=== PATIENT | male | born 1950 | race Caucasian/White ===

== ENCOUNTER 2022-10-31 05:44 | Inpatient (IN) | payer MEDICARE, OTHER, SELFPAY ==
[2022-10-31] VITALS (11 sets, daily range): BP systolic 138–173; BP diastolic 83–105; PULSE 87–108; RESP 18–24; TEMP 36.6–37.2; O2SAT 76–98; BMI 21.0; BMI 20.5
--- NOTE | 2022-10-31 06:15 | RAD_ITS ---
INDICATION: Dyspnea EXAMINATION/TECHNIQUE: X-RAY - XR Chest 2 Views COMPARISON: No comparison imaging received FINDINGS: LINES/DEVICES: None. LUNGS: Patient slightly rotated to the right. Hyperexpanded lungs. Right greater than left perihilar and peribronchial hazy opacities. No sizable pleural effusion. No pneumothorax detected. MEDIASTINUM AND CARDIOVASCULAR STRUCTURES: Heart size within normal limits. Mediastinal contours unremarkable. BONES AND SOFT TISSUES: No acute findings. RAD/Chest PA and Lateral IMPRESSION: COPD with bilateral perihilar and peribronchial infiltrate. Electronically Signed: Nate Cosme MD at 7:30 EDT Reading Location ID and State: [id number] / [place]
--- NOTE | 2022-10-31 06:16 | EKG12_ITS ---
Test Reason : SOB Blood Pressure : / mmHG Vent. Rate : 102 BPM Atrial Rate : 102 BPM P-R Int : 118 ms QRS Dur : 084 ms QT Int : 364 ms P-R-T Axes : 072 086 066 degrees QTc Int : 474 ms Sinus tachycardia Otherwise normal ECG Confirmed by MARTA CAN, LINDA ([id number]), editor news ANGELA NUNO ([id number]) on 11/03/2022 11:39:27 AM Referred By: Confirmed By:ANGELIQUE LOZANO MD
[2022-10-31] MEDS: Ipratropium/Albuterol Sulfate 3 ML AMPUL.NEB INHALATION (06:26)
--- NOTE | 2022-10-31 06:26 | ED.VIS.DYS ---
HPI History of Present Illness Chief Complaint: Shortness of Breath Informant: patient Onset/Context/Timing Onset: Month(s) (1) Context: gradual Timing: Continuous Quality: Positive for Dyspnea on exertion Worsened by: Exertion Relieved by: Rest Associated Symptoms cough and white sputum; Negative for rhinorrhea, post nasal drip, ear pain, fever, sore throat, chills, sweats, yellow sputum or green sputum Narrative Narrative: Patient presents with shortness of breath that has been getting worse over the past month. Patient states his breathing is worse with any exertion. Patient states his breathing got better with the DuoNeb EMS administered. Patient admits to a cough with some white sputum. Patient denies any fevers or chills. Patient denies any chest pain. Patient denies any sore throat or rhinorrhea. Patient denies any nausea or vomiting. Patient states he quit smoking 1 week ago. Patient denies any PE risk factors. PE Risk Factors: Negative for Cancer, OCP + Smoking + > 35, Prior DVT or PE, Recent immobilization, Recent surgery or Recent travel [facility] Medical History GERD (gastroesophageal reflux disease) Hypertension Home Medications pantoprazole 20 mg tablet,delayed release 20 mg PO DAILY 10/31/22 [History Last Taken Unknown] Allergy/AdvReac Type Severity Reaction Status Date / Time No Known Allergies Allergy Verified 10/31/22 07:42 Surgical History History of tonsillectomy Social History Smoking Status: Former smoker ROS ROS ED Constitutional Constitutional ED: Denies chills or fever(s) Eyes Eyes: Denies blurry vision or change in vision ENT ENT ED: Denies rhinorrhea or sore throat Cardiovascular Cardiovascular: Denies chest pain or palpitations Respiratory/Chest Respiratory/Chest: Reports cough and dyspnea Gastrointestinal Gastrointestinal: Denies nausea or vomiting Genitourinary Genitourinary ED: Denies dysuria or hematuria Musculoskeletal Musculoskeletal: Denies back pain or neck pain Integumentary Denies abscess or rash Neurologic Neurologic: Denies headache(s) or weakness Allergic/Immunologic Allergic/Immunologic ED: Denies mouth swelling or urticaria EXAM Physical Exam Const Vital Signs: 10/31/22 05:46 10/31/22 05:49 10/31/22 05:49 Temperature 98.4 F Temperature Source Oral Pulse Rate 108 H Respiratory Rate 22 H Respiratory Effort Short of Breath Respiratory Depth Normal Respiratory Pattern Tachypnea Blood Pressure 173/105 H Blood Pressure Mean 127 Pulse Ox 76 84 Oxygen Delivery Method Room Air Nasal Cannula Nasal Cannula Oxygen Flow Rate (L/min) 4 5 10/31/22 06:27 10/31/22 07:34 Temperature Temperature Source Pulse Rate 99 98 Respiratory Rate 18 20 H Respiratory Effort Respiratory Depth Respiratory Pattern Normal Blood Pressure 157/100 H Blood Pressure Mean 119 Pulse Ox 93 Oxygen Delivery Method High Flow Oxygen Flow Rate (L/min) 6 Positive well nourished and well developed General Appearance ED: well developed HEENT Reports moist mucous membranes Neck supple and no JVD Resp normal respiratory effort Auscultation: diminished lung sounds diffuse Cardio regular rate and regular rhythm GI normal to inspection, nondistended, normoactive bowel sounds and non-tender Palpation: soft Extremity normal to inspection General Extremety ED: Negative for edema or tenderness General Extremity: Negative for edema Neuro oriented x3, CN's II-XII intact bilaterally and no sensory deficits noted Sensorium / Orientation: alert Motor Exam: strength 5/5 throughout Psych mental status grossly normal Skin no rashes or lesions noted MDM MDM MDM Narrative Medical decision making narrative: Differential diagnosis includes pneumonia, COPD exacerbation, pleural effusion, COVID-19 infection, influenza infection, viral infection, and congestive heart failure. EKG will be obtained to assess for cardiac dysrhythmia and cardiac ischemia. Chest x-ray will be obtained to assess for pneumonia and pneumothorax. CBC will be obtained to assess for leukocytosis and anemia. Basic metabolic profile will be obtained to assess for electrolyte abnormality and renal function. High-sensitivity troponin will be obtained to assess for cardiac ischemia. BNP will be obtained to assess for congestive heart failure. COVID-19 rapid antigen will be obtained to assess for COVID-19 infection. Influenza A and influenza B antigens will be obtained to assess for influenza infection. Lab Data Attestation: I reviewed the patient's lab results. Lab results narrative: CBC was reviewed and shows a leukocytosis of 16.3. Basic metabolic profile was reviewed and shows a mild hypokalemia 3.1. High-sensitivity troponin was reviewed and was normal at 12. BNP was reviewed and was normal at 70.5. COVID-19 rapid antigen was reviewed and was negative. Influenza A and influenza B antigens were reviewed and were negative. Labs: Laboratory Results - last 24 hr 10/31/22 06:22 WBC 16.3 H RBC 4.80 Hgb 14.9 Hct 43.9 MCV 91.5 MCH 31.0 MCHC 33.9 RDW Std Deviation 47.2 H RDW Coeff of Sonya 13.9 Plt Count 350 MPV 8.2 Immature Gran % (Auto) 0.700 Neut % (Auto) 67.5 Lymph % (Auto) 18.3 L [place] % (Auto) 12.8 H Eos % (Auto) 0.2 Baso % (Auto) 0.5 Absolute Neuts (auto) 11.0 H Absolute Lymphs (auto) 2.97 Nucleated RBC % 0 Diff Path Review May foll Sodium 139 Potassium 3.1 L Chloride 108 H Carbon Dioxide 25.0 Anion Gap 6 BUN 18 Creatinine 0.77 Estim Creat Clear Calc 71.30 Est GFR (MDRD) Af Amer 129 Est GFR (MDRD) Non-Af 106 BUN/Creatinine Ratio 23.5 H Glucose 123 H Calcium 9.4 Troponin I High Sens 12 B-Natriuretic Peptide 70.5 Radiography Diagnostic Testing: Clinical Impression(s) from Imaging Studies Chest X-Ray 10/31/22 06:15 IMPRESSION: COPD with bilateral perihilar and peribronchial infiltrate. Electronically Signed: Nate Cosme MD at 7:30 EDT , PA and lateral chest x-ray was obtained. There are 2 views. On my independent interpretation, there are bilateral perihilar and peribronchial infiltrates, worse on the right. There is no cardiomegaly noted. Bony thorax is normal. There are no pleural effusions noted. Radiologist also interpreted the x-rays and agrees. EKG Initial EKG: Attestation: I personally reviewed and interpreted this EKG as follows: Interpretation: No Acute Injury Pattern and Sinus Tachycardia (102) Comments: EKG was obtained. On my independent interpretation, it showed a sinus tachycardia with a rate of 102. AK interval, QRS interval, and QTc intervals were all normal. [place] was normal. There are no acute ST or T wave changes. Prior EKG tracings: not available for review Prior: No Prior Treatment and Re-Evaluation :: Patient was given a DuoNeb aerosol here. Patient was advised of his findings. Patient is hypoxic on room air. Patient was started on Rocephin and Zithromax. Patient was advised of the need for admission since he is hypoxic. Patient understands and is agreeable with the plan. Case will be discussed with the hospitalist for admission. Discharge Plan Triage Chief Complaint: Shortness of Breath ED Provider: Jatinder Antunez Dx/Rx/DC Orders Clinical Impression: Hypoxia, Pneumonia Prescriptions: No Action pantoprazole 20 mg tablet,delayed release (DR/EC) 20 mg PO DAILY Patient Comments: Take 1 (one) tablet (20 mg total) by mouth daily. Primary Care Provider: Care Physician,No Primary Referrals: Care Physician,No Primary [Primary Care Provider] - Disposition Disposition: Acute Care Hospital [facility]
[2022-10-31 06:32] LABS: Absolute Lymphocyte Count 2.97 X10^3/uL (0.83-4.51); Basophil# 0.08 X10^3/uL; Basophil% 0.5 % (0-1); Eosinophil# 0.03 X10^3/uL; Eosinophils% 0.2 % (0-5); Hematocrit 43.9 % (40-54); Hemoglobin 14.9 g/dL (13.0-16.5); Lymphocyte # 2.97 X10^3/ul (0.83-4.51); Lymphocyte % 18.3 % (19-41); Mean Corp Hgb Conc 33.9 g/dL (32-36); Mean Corpuscular Volume 91.5 fL (80-94); Mean Platelet Vol. 8.2 fl (6.2-12.0); Monocyte# 2.09 X10^3/uL; Monocyte% 12.8 % (0-10); NRBC Flagged by Analyzer 0 % (0-5); Neutrophil # 10.98 X10^3/uL (2.7-7.7); Neutrophil % 67.5 % (47-70); POSITIVE DIFFERENTIAL YES; Platelet Count 350 K/mm3 (150-450); RBC Distribution Width CV 13.9 % (11.6-14.6); RBC Distribution Width SD 47.2 fl (35.1-43.9); White Blood Count 16.3 K/mm3 (4.4-11.0)
[2022-10-31 06:43] LABS: Differential Indicated SCAN CRITERIA MET
[2022-10-31 06:49] LABS: Anion Gap 6 (5-15); BUN 18 mg/dL (7-18); BUN/Creat Ratio 23.5 RATIO (10-20); Calcium,Total 9.4 mg/dL (8.5-10.1); Chloride 108 mmol/L (98-107); Creatinine, Serum 0.77 mg/dL (0.70-1.30); EST Glomerular Filtration Rate 106 mL/min (>60); Est Glom Filt Rate - Afr Amer 129 mL/min (>60); Glucose 123 mg/dL (74-106); Potassium 3.1 mmol/L (3.5-5.1); Sodium Level 139 mmol/L (136-145); Troponin-I HS 12 pg/mL (3.0-78.0)
[2022-10-31 07:31] LABS: BNP,B-Type NATRIURETIC PEPTIDE 70.5 pg/mL (0-100)
--- NOTE | 2022-10-31 08:22 | NURSING ---
323 TERELETSKY PNEUMONIA, HYPOXIA, COPD
--- NOTE | 2022-10-31 09:49 | HP.PCM.HOS_ITS ---
HPI - General General Date of Admission: 10/31/22 Date of Service: 10/31/22 Chief Complaint: Shortness of breath HPI Narrative SADIE EATON, is a 72 M who presents to the emergency room at [facility] with a chief complaint of increasing shortness of breath over the last several weeks. Patient stated that it had increased this morning, DuoNeb was given by squad and he was brought to the emergency room for evaluation. Patient relates to an outpatient work-up for his shortness of breath by his PCP, he was placed on inhalers and an aerosol machine, patient states that a CAT scan was obtained but he does not know the results of the CAT scan. Patient stopped smoking a week ago, he has a 50+ year history of smoking 1 pack a day. Patient admits to a cough with some white sputum production, he denies any fever or chills. He denies any chest pain. Work-up in the emergency room included labs which showed a white blood cell count of 16.3, troponin was unremarkable, beta nitric peptide was 70.5, potassium was 3.1. Chest x-ray showed COPD with bilateral perihilar and peribronchial infiltrates. On examination, patient exhibits inspiratory wheezing bilaterally, he is currently on 10 L of oxygen. Patient will be admitted to [place] [address] for exacerbation of COPD and community-acquired pneumonia, he was given IV antibiotics in the emergency room, he will be maintained on aerosol treatments, he will see pulmonary medicine in consultation for ongoing care after he is discharged from the hospital. I will obtain a D-dimer. I will attempt to get results of his outpatient chest CT, I called [facility] and they do not have record of him having a CT there-he told me that this work was performed. [facility] Medical History GERD (gastroesophageal reflux disease) Hypertension Home Medications amlodipine 10 mg tablet 10 mg PO DAILY high blood pressure 10/31/22 [History Last Taken 10/31/22] pantoprazole 20 mg tablet,delayed release 20 mg PO DAILY 10/31/22 [History Last Taken Unknown] prednisone 20 mg tablet 20 mg PO DAILY breathing 10/31/22 [History Last Taken 10/30/22] Allergy/AdvReac Type Severity Reaction Status Date / Time No Known Allergies Allergy Verified 10/31/22 07:42 Surgical History History of tonsillectomy Social History Smoking Status: Former smoker ROS Constitutional Constitutional: Reports fatigue and weakness; Denies anorexia, change in weight, chills, fever(s) or night sweats Eyes Eyes: Denies blurry vision, change in vision, discharge from eye(s) or eye pain Cardiovascular Cardiovascular: Denies chest pain, claudication, edema or palpitations Respiratory/Chest Respiratory/Chest: Reports dyspnea, shortness of breath at rest, shortness of breath with exertion and wheezing; Denies cough or hemoptysis Gastrointestinal Gastrointestinal: Denies abdominal pain, coffee ground emesis, constipation, diarrhea, dyspepsia, hematemesis, hematochezia, melena, nausea or vomiting Genitourinary Genitourinary: Denies dysuria, hematuria, nocturia, urinary frequency, urinary hesitancy, urinary incontinence or urinary urgency Musculoskeletal Musculoskeletal: Denies back pain, joint pain, joint stiffness, joint swelling, myalgias or neck pain Neurologic Neurologic: Denies abnormal gait, abnormal speech, dizziness, focal weakness, headache(s), loss of vision, numbness, other visual disturbances, paresthesias, syncope or tingling Psychiatric Psychiatric: Denies anxiety, cognitive impairment, depression, irritability, mood swings or suicidal ideation Endocrine Endocrinology: Denies change in body appearance, cold intolerance, excessive sweating, heat intolerance, polydipsia or polyuria Hematologic/Lymphatic Hematologic/Lymphatic: Denies none, anemia, easy bleeding, easy bruising or lymphadenopathy Allergic/Immunologic Allergic/Immunologic: Denies rhinitis, urticaria, eczemia or asthma Vital Signs Vital Signs Vital Signs: 10/31/22 05:46 10/31/22 05:49 10/31/22 05:49 Temperature 98.4 F Temperature Source Oral Pulse Rate 108 H Respiratory Rate 22 H Respiratory Effort Short of Breath Respiratory Depth Normal Respiratory Pattern Tachypnea Blood Pressure 173/105 H Blood Pressure Mean 127 Blood Pressure Source Blood Pressure Position Blood Pressure Location Pulse Ox 76 84 Oxygen Delivery Method Room Air Nasal Cannula Nasal Cannula Oxygen Flow Rate (L/min) 4 5 10/31/22 06:27 10/31/22 07:34 10/31/22 08:19 Temperature 98 F Temperature Source Temporal Pulse Rate 99 98 100 Respiratory Rate 18 20 H 20 H Respiratory Effort Respiratory Depth Respiratory Pattern Normal Blood Pressure 157/100 H 156/96 H Blood Pressure Mean 119 116 Blood Pressure Source Blood Pressure Position Blood Pressure Location Pulse Ox 93 93 Oxygen Delivery Method High Flow High Flow Oxygen Flow Rate (L/min) 6 8 10/31/22 09:29 Temperature 98.1 F Temperature Source Oral Pulse Rate 100 Respiratory Rate 18 Respiratory Effort Respiratory Depth Respiratory Pattern Blood Pressure 138/83 H Blood Pressure Mean 101 Blood Pressure Source Monitor Blood Pressure Position Semi-Fowlers Blood Pressure Location Right Arm Pulse Ox 93 Oxygen Delivery Method High Flow Oxygen Flow Rate (L/min) 10 Weight Weight: 72.4 kg Body Mass Index (BMI) 20.5 Physical Exam Const alert, oriented x3 and no apparent distress General Appearance: cooperative, well kempt and well developed Orientation / Consciousness: awake, oriented to person, oriented to place and oriented to time HEENT normocephalic and moist oral mucous membranes Eyes PERRL, EOMs intact bilaterally and conjunctivae normal Neck supple, no JVD, thyroid normal and no carotid bruits General: trachea midline Resp normal respiratory effort, no retractions, no use of accessory muscles and clear to auscultation bilaterally Auscultation: Negative for rales, rhonchi or wheezes Cardio regular rate, regular rhythm, S1 normal heart sound, S2 normal heart sound, no murmurs, no rub and no gallops GI normal to inspection, nondistended, normoactive bowel sounds, soft to palpation, non-tender and non-distended Extremity no clubbing, cyanosis or edema Skin no rashes or lesions noted General Skin Exam: no breakdown Neuro oriented x3, CN's II-XII intact bilaterally, moves all extremities, no focal motor deficits and no sensory deficits noted Sensorium / Orientation: awake, alert, oriented to person, oriented to place and oriented to time Speech: speech normal Psych affect normal Results Lab / Micro Data 10/31/22 06:22 10/31/22 06:22 Labs: Laboratory Results - last 24 hr 10/31/22 06:22: WBC 16.3 H, RBC 4.80, Hgb 14.9, Hct 43.9, MCV 91.5, MCH 31.0, MCHC 33.9, RDW Std Deviation 47.2 H, RDW Coeff of Sonya 13.9, Plt Count 350, MPV 8.2, Immature Gran % (Auto) 0.700, Neut % (Auto) 67.5, Lymph % (Auto) 18.3 L, [place] % (Auto) 12.8 H, Eos % (Auto) 0.2, Baso % (Auto) 0.5, Absolute Neuts (auto) 11.0 H, Absolute Lymphs (auto) 2.97, Nucleated RBC % 0, Diff Path Review August, Sodium 139, Potassium 3.1 L, Chloride 108 H, Carbon Dioxide 25.0, Anion Gap 6, BUN 18, Creatinine 0.77, Estim Creat Clear Calc 71.30, Est GFR (MDRD) Af Amer 129, Est GFR (MDRD) Non-Af 106, BUN/Creatinine Ratio 23.5 H, Glucose 123 H, Calcium 9.4, Troponin I High Sens 12, B-Natriuretic Peptide 70.5 Micro: Microbiology 10/31/22 06:25 Nasal Secretion SARS-CoV-2 & FLU Antigen (Rapid) - Final Radiology Impression Chest X-Ray 10/31/22 06:15 IMPRESSION: COPD with bilateral perihilar and peribronchial infiltrate. Electronically Signed: Nate Cosme MD at 7:30 EDT , Assessment & Plan Assessment/Plan (1) Pneumonia: PLAN: Plan 1. Exacerbation of COPD-patient will be admitted to [place] [address], he will be given IV corticosteroids and aggressive aerosol treatments, he will be seen in consultation by pulmonary medicine. I have elected to obtain a D-dimer on the patient, I will attempt to get his chest CAT scan results which she says he had recently, not sure what hospital it was performed at. #2 community-acquired pneumonia-it is possible patient has a community-acquired pneumonia, he will be maintained on Rocephin and Zithromax, sputum culture will be obtained, urine antigens for Legionella and strep will be obtained #3 hypoxia-at rest, patient has no signs of respiratory distress, he is on high flow oxygen at this time however, we will try to wean his oxygen down if possible. #4 hypertension-patient is on amlodipine #5 GERD-patient takes Protonix Total clinical time spent by myself addressing the patient's medical issues, reviewing all of his data, and collaborating with patient's care team: 75 minutes Charges/Coding Visit Charges Inpatient E&M: 39289 Init Hosp L3
[2022-10-31 10:43] LABS: D-Dimer Quantitative (DVT/PE) 0.53 FEU/ug/m (0.27-0.49)
[2022-10-31] MEDS: Potassium Chloride Oral Tablet 20 MEQ 40 MEQ PO (11:00)
[2022-10-31] MEDS: 0.9% Saline Lock 10 ML Syringe IV ×3 (11:10→22:14)
--- NOTE | 2022-10-31 11:45 | NURSING ---
This RN gave pt sputum cup for pt and instructions given for sputum sample and to call the nurse when sputum sample is provided by pt.
[2022-10-31] MEDS: Ipratropium 0.5 MG/2.5 ML SOLUTION INHALATION ×2 (13:36→19:30)
--- NOTE | 2022-10-31 14:07 | CPS ---
Pt's SpO2 was 98% when RT arrived in room so decreased O2 from 10lpm to 8lpm. Sat remained in the 90's until pt sat on the side of the bed to use urinal and he desated quickly to low 80's so O2 was returned to 10lpm and SpO2 increased to low 90's.Informed perishable fruit inspector.
[2022-10-31] MEDS: Methylprednisolone Sod Succ 40 MG/ML VIAL IV ×2 (14:55→22:12)
[2022-10-31] MEDS: Heparin Injection (Vial) 5,000 UNIT/ML VIAL 5000 UNIT SC (22:15)
[2022-11-01] VITALS (7 sets, daily range): BP systolic 117–136; BP diastolic 74–90; PULSE 74–100; RESP 16–20; TEMP 36.8–37.2; O2SAT 93–96
[2022-11-01] MEDS: Methylprednisolone Sod Succ 40 MG/ML VIAL IV ×3 (05:55→22:34)
[2022-11-01] MEDS: 0.9% Saline Lock 10 ML Syringe IV ×2 (05:55→22:35)
[2022-11-01 06:43] LABS: Absolute Lymphocyte Count 1.31 X10^3/uL (0.83-4.51); Basophil# 0.02 X10^3/uL; Basophil% 0.2 % (0-1); Hematocrit 44.3 % (40-54); Hemoglobin 14.9 g/dL (13.0-16.5); Lymphocyte # 1.31 X10^3/ul (0.83-4.51); Lymphocyte % 10.2 % (19-41); Mean Corp Hgb Conc 33.6 g/dL (32-36); Mean Corpuscular Volume 92.1 fL (80-94); Mean Platelet Vol. 8.9 fl (6.2-12.0); Monocyte# 0.44 X10^3/uL; Monocyte% 3.4 % (0-10); NRBC Flagged by Analyzer 0 % (0-5); Neutrophil # 11.04 X10^3/uL (2.7-7.7); Neutrophil % 85.5 % (47-70); Platelet Count 381 K/mm3 (150-450); RBC Distribution Width CV 13.9 % (11.6-14.6); RBC Distribution Width SD 47.1 fl (35.1-43.9); Red Blood Count 4.81 M/mm3 (4.6-6.2); White Blood Count 12.9 K/mm3 (4.4-11.0)
[2022-11-01] MEDS: Ipratropium 0.5 MG/2.5 ML SOLUTION INHALATION ×3 (06:48→19:38)
[2022-11-01 07:08] LABS: Anion Gap 7 (5-15); BUN 17 mg/dL (7-18); BUN/Creat Ratio 20.9 RATIO (10-20); Calcium,Total 8.7 mg/dL (8.5-10.1); Chloride 108 mmol/L (98-107); Creatinine, Serum 0.81 mg/dL (0.70-1.30); EST Glomerular Filtration Rate 100 mL/min (>60); Est Glom Filt Rate - Afr Amer 120 mL/min (>60); Estimated Creatinine Clearance 85.66 ml/min; Glucose 134 mg/dL (74-106); Potassium 3.8 mmol/L (3.5-5.1); Sodium Level 138 mmol/L (136-145)
[2022-11-01] MEDS: Ceftriaxone 1 GM/50 ML BAG IV (09:40)
[2022-11-01] MEDS: Heparin Injection (Vial) 5,000 UNIT/ML VIAL 5000 UNIT SC (09:41)
[2022-11-01] MEDS: amLODIPine 10 MG Tablet PO (09:41)
[2022-11-01] MEDS: Pantoprazole Sodium 20 MG Tablet PO (09:41)
[2022-11-01 10:12] LABS: Pathologist Review Reviewed
--- NOTE | 2022-11-01 10:35 | EX.PCM.CONCC ---
Assessment & Plan Assessment/Plan (1) Mass of right lung: PLAN: I will review the images from [facility] chest CT scan when they are available in our system Bronchoscopy is tentatively scheduled for 1 PM on October 04 for biopsy of his right paratracheal mass and likely endobronchial lesion. This is highly likely to be a neoplasm, patient is aware. Further testing including depending on results. Pre- bronchoscopy labs ordered including PT/INR PTT CMP and ABG on O2. Platelets are normal. (2) Postobstructive pneumonia: PLAN: Secondary to #1. Agree with your care, he is clinically improving. (3) Hypertension: PLAN: Maintain BP less than 160 systolic (4) GERD (gastroesophageal reflux disease): PLAN: Well-controlled on pantoprazole. (5) COPD exacerbation: PLAN: No prior diagnosis, no prior PFT dismantler or inhalers until 1 month ago when he presented with cough. -Continue current treatment of COPD, changed to p.o. prednisone, with slow taper over 1 to 2 weeks. Add LAMA/LABA inhalers prior to discharge. - He will eventually need outpatient PFTs, please order these at discharge, 6 weeks after this exacerbation. However, diagnosis and management of his lung cancer takes front seat at this time. - Fine-tune inhalers dependent on results and clinical response. - The patient is committed to complete smoking cessation, he was advised today on individual message to quit, continue to provide nicotine replacement therapy since that seems to be helpful and effective for this patient. - Outpatient pulmonary follow-up in 7 to 8 weeks PLAN: Plan As above, thank you for consulting [facility] under pleasant patient. Jayro Brown MD [facility] HPI Consult Data Date of Consult: 11/01/22 HPI Narrative Reason for Consultation: COPD exacerbation, new diagnosis, CAP. HPI Narrative: SADIE EATON, is a 72 M former 07-unta-tign smoker and history of hypertension and GERD with no known COPD history, who was admitted to the hospital with hypoxic respiratory failure, COPD exacerbation, and right lung community-acquired pneumonia after a month of Minimally productive cough. Jonna was well until about a month ago, with his baseline exercise tolerance of being able to walk uphill without dyspnea, no significant cough, no chest pain upper airway symptoms allergies allergic rhinitis or wheezing. He denies leg edema fevers chills sweats or sick contacts. He stated he was feeling good until the next morning woke up coughing and more short of breath. He stated he saw several providers as an outpatient including in the [facility] system at [place], and had 2 courses of antibiotics he did not recall the names of, was not sure whether he was taking steroids, was given inhalers that did not help. He never had purulent sputum or hemoptysis, pleurisy, chest pain, chest pressure, upper airway symptoms, leg edema, no fevers chills or sweats. He did have a minimally productive cough with whitish sputum. He did admit to occasionally wheezing, but was not sure what that was. After worsening cough and dyspnea he came to the emergency room he is found to have hypoxic respiratory failure and right lung pneumonia. White count is 16,000. His home health records indicate prednisone 20 mg daily, but he did not recall being on steroids. He was generally not able to name medications or previous medical interventions. Since admission, he feels better on antibiotics steroids and nebulized bronchodilators. He is now able to walk to the bathroom with oxygen and back without much difficulty, he could not do that yesterday. His cough has decreased, sputum is minimal. And again denied hemoptysis, upper airway symptoms, sore throat or chest pain. His past pulmonary history is remarkable only for pneumonia at age 12, [id number] smoking history quit 3 weeks ago with a nicotine patch, had tried several times to quit in the past never more than 2 days at a time. He has now resolved to Quit completely going forward. He has never used oxygen. There is no history of chest trauma, rib fractures, tuberculosis exposure, surgery to the chest or airway except for tonsillectomy during childhood. No history of pneumothorax, DVT, pulmonary embolism, sleep disorder, allergic rhinitis. He did however state that the spring pollen this year was worse for him but did not take any jeiw-wzg-aagpcml allergy pills. He denies a recent fall. He is never seen a dismantler, nor has he had pulmonary function test. He does not usually have springtime respiratory symptoms. No nasal or ear problems or surgery. Past medical history: Hypertension controlled on amlodipine for years, acid reflux with patient reported gastritis by a [place] health advocate, completely resolved with daily pantoprazole. Allergies none known Family and social history no history of COPD, he is accompanied by a friend. No alcohol use, former smoker as above. He Is a lifetime farmer diversified crops, currently working on his own farm. Review of systems: No neurologic symptoms, headache, thrush, adenopathy, cardiac problems, peripheral vascular disease, thromboembolic disease. His GERD is controlled completely on daily pantoprazole. No diabetes, hypothyroidism, renal disease, problems, leg edema, or acute musculoskeletal problems. No psychiatric history. [facility] Medical History (Updated 11/01/22 @ 11:[address] Jayro Brown MD) COPD exacerbation Former smoker GERD (gastroesophageal reflux disease) Hypertension Mass of right lung Postobstructive pneumonia Home Medications amlodipine 10 mg tablet 10 mg PO DAILY high blood pressure 10/31/22 [History Last Taken 10/31/22] pantoprazole 20 mg tablet,delayed release 20 mg PO DAILY 10/31/22 [History Last Taken Unknown] prednisone 20 mg tablet 20 mg PO DAILY breathing 10/31/22 [History Last Taken 10/30/22] Allergy/AdvReac Type Severity Reaction Status Date / Time No Known Allergies Allergy Verified 10/31/22 07:42 Surgical History History of tonsillectomy Social History Smoking Status: Former smoker Physical Exam Narrative Well-developed slender gentleman with BMI of 20.5 in no respiratory distress. He did not cough during today's visit. I did not observe him ambulating. HEENT: Extraoculars are intact pupils are equal anicteric conjunctiva noninjected. Mouth has no thrush. Neck is supple with no JVD thyromegaly mass or adenopathy. Chest is diminished bilaterally with good air movement on the left and diminished air movement on the right. No rhonchi, no wheezes or crackles. Heart: Normal S1-S2 with no murmurs rubs or gallops Abdomen is soft, nontender, no organomegaly or mass. Extremities appear cold, no cyanosis or edema. Neurologic exam is nonfocal grossly, limited exam with no gait tested. He is alert and oriented x3, good historian. Skin is warm and dry. Medical Records Data Attestation: I reviewed the patient's medical records Medical records narrative: [facility] records reviewed, CT scan from outside hospital reportedly shows a mass in the right paratracheal area, they are in the process of pushing the images to our system to make the images available here. Lab / Micro Data Attestation: I reviewed the patient's lab results. 11/01/22 05:10 11/01/22 05:10 Labs: Laboratory Results - last 24 hr 10/31/22 06:22: Diff Path Review Reviewed 10/31/22 10:18: D-Dimer Quant (PE/DVT) 0.53 H* 11/01/22 05:10: WBC 12.9 H, RBC 4.81, Hgb 14.9, Hct 44.3, MCV 92.1, MCH 31.0, MCHC 33.6, RDW Std Deviation 47.1 H, RDW Coeff of Sonya 13.9, Plt Count 381, MPV 8.9, Immature Gran % (Auto) 0.700, Neut % (Auto) 85.5 H, Lymph % (Auto) 10.2 L, O[place]ley % (Auto) 3.4, Eos % (Auto) 0.0, Baso % (Auto) 0.2, Absolute Neuts (auto) 11.0 H, Absolute Lymphs (auto) 1.31, Nucleated RBC % 0, Sodium 138, Potassium 3.8, Chloride 108 H, Carbon Dioxide 23.0, Anion Gap 7, BUN 17, Creatinine 0.81, Estim Creat Clear Calc 85.66, Est GFR (MDRD) Af Amer 120, Est GFR (MDRD) Non-Af 100, BUN/Creatinine Ratio 20.9 H, Glucose 134 H, Calcium 8.7 Micro: Microbiology 10/31/22 14:45 Urine, Random Legionella Antigen - Final 10/31/22 14:45 Urine, Random Streptococcus pneumoniae Antigen (M - Final 10/31/22 06:25 Nasal Secretion SARS-CoV-2 & FLU Antigen (Rapid) - Final Charges/Coding Visit Charges Inpatient E&M: 06867 Init Hosp L3
[2022-11-01 12:53] LABS: Allen Test Positive; Base Excess 0 mmol/L (-2 to +2); Bicarbonate 23.7 mmol/L (22-26); Blood Gas Specimen Type ART; O2 Delivery Device Cannula; PO2 50 mmHG (75-100); SITE R Radial; SO2 88 % (95-99); Total Carbon Dioxide 25 mmol/L; pCO2 32.2 mmHg (35-45); pH 7.48 (7.35-7.45)
--- NOTE | 2022-11-01 13:34 | PCM.PN.HOSP ---
Reason for Visit Reason for Visit: Shortness of breath Subjective Subjective Patient is a 72-year-old male who presented to the emergency department at [facility] on 10/31/2022 with a chief complaint of shortness of breath that had been worsening over the last several weeks. He had worsening respiratory status on the morning of admission and the squad was called. DuoNeb was given by EMS and he was brought to the emergency department for further evaluation. He indicated on presentation that he had a recent outpatient work-up for his shortness of breath which included being placed on inhalers and a nebulizer machine and a CT of his chest was performed recently but he did not know the results of that yet. The patient stopped smoking about 1 week ago but does report a 50+ pack year history. He denies any significant coughing or sputum production and denied fever and chills on presentation. Patient was hypoxic upon presentation requiring 10 L of nasal cannula heated high flow on presentation and he had a leukocytosis with a white count of 16.3. Troponin was performed and found to be unremarkable. A beta natruretic peptide was found to be normal at 70.5. His potassium was slightly low at 3.1. Chest x-ray showed COPD with bilateral perihilar and peribronchial infiltrates. His oxygen has been able to be weaned today and he is currently on 7 L at rest he does get worsening hypoxia with exertion. I was called by his primary care physician Dr. Boss and she reported that the results of the CAT scan showed a mass in his chest. She was trying to get a hold of him to get an appointment for further work-up and found that he was in the hospital. Patient states he is feeling better today however still short of breath especially with exertion. We did discuss the findings on the CAT scan and with the location that they have been found anatomically he will need a bronchoscopy. Case was discussed with pulmonary medicine and plan is for bronchoscopy on 11/03/2022. Patient is amenable to this. Objective Data Objective Data Vital Signs: Vital Signs Temp Pulse Resp BP Pulse Ox O2 Del Method O2 Flow Rate 98.4 F 100 18 134/90 H 95 High Flow 7 11/01/22 10:06 11/01/22 12:40 11/01/22 12:40 11/01/22 10:11/01/22 10:06 11/01/22 10:11/01/22 10:06 Oxygen Flow Rate (L/min) 7 Oxygen Delivery Method High Flow Weight: 72.4 kg Body Mass Index (BMI) 20.5 Intake & Output: Intake and Output for Last 24 Hours 10/30/22 10/31/22 11/01/22 23:59 23:59 23:59 Intake Total 856.5 / 856.5 305 / 305 Output Total 350 / 500 600 / 600 Balance 506.5 / 356.5 -295 / -295 Lab / Micro Data 11/01/22 05:10 11/01/22 05:10 Labs: Laboratory Results - last 24 hr 10/31/22 06:22: Diff Path Review Reviewed 11/01/22 05:10: WBC 12.9 H, RBC 4.81, Hgb 14.9, Hct 44.3, MCV 92.1, MCH 31.0, MCHC 33.6, RDW Std Deviation 47.1 H, RDW Coeff of Sonya 13.9, Plt Count 381, MPV 8.9, Immature Gran % (Auto) 0.700, Neut % (Auto) 85.5 H, Lymph % (Auto) 10.2 L, [place] % (Auto) 3.4, Eos % (Auto) 0.0, Baso % (Auto) 0.2, Absolute Neuts (auto) 11.0 H, Absolute Lymphs (auto) 1.31, Nucleated RBC % 0, Sodium 138, Potassium 3.8, Chloride 108 H, Carbon Dioxide 23.0, Anion Gap 7, BUN 17, Creatinine 0.81, Estim Creat Clear Calc 85.66, Est GFR (MDRD) Af Amer 120, Est GFR (MDRD) Non-Af 100, BUN/Creatinine Ratio 20.9 H, Glucose 134 H, Calcium 8.7 Micro: Microbiology 10/31/22 21:20 Sputum, Expectorated/Coughed Gram Stain - Final 10/31/22 14:45 Urine, Random Legionella Antigen - Final 10/31/22 14:45 Urine, Random Streptococcus pneumoniae Antigen (M - Final 10/31/22 06:25 Nasal Secretion SARS-CoV-2 & FLU Antigen (Rapid) - Final ABG Data ABG results: ABG 11/01/22 12:50 Specimen Type ART Sample Site R Radial pH 7.48 H Bicarbonate Actual 23.7 Total CO2 25 Base Excess 0 O2 Saturation 88 L ABG pCO2 32.2 L ABG pO2 50 L Berhane Test Positive O2 Delivery Device Cannula Liter Flow 7.0 Clinical Comments 7L hfnc Physical Exam Const alert, oriented x3 and no apparent distress Constitutional Narrative: Thin, elderly, white male, sitting up in bed, watching television, appears comfortable and nontoxic HEENT head/scalp atraumatic and moist oral mucous membranes HEENT Narrative: Dentition is poor, Mallampati 2, no thrush, temporal wasting Head and Scalp: normocephalic Resp normal respiratory effort, no retractions and no use of accessory muscles Resp Narrative: Currently no signs of respiratory extremis, markedly diminished in the right lung field however diffuse diminished breath sounds are noted Auscultation: Negative for rales, rhonchi or wheezes Cardio regular rate, regular rhythm, S1 normal heart sound, S2 normal heart sound, no murmurs, no rub, no gallops and no clicks GI normal to inspection, nondistended, normoactive bowel sounds, soft to palpation and non-tender GI Narrative: Scaphoid at [place] Extremity no clubbing, cyanosis or edema Extremity Narrative: Pedal's are 2+ Neuro oriented x3, moves all extremities and no focal motor deficits Speech: speech normal Psych affect normal Psych Narrative: Very pleasant, appropriately interactive Assessment & Plan Assessment/Plan (1) Mass of right lung: (2) Postobstructive pneumonia: (3) COPD exacerbation: (4) Hypoxia: (5) Hypokalemia: PLAN: Plan Acute hypoxia secondary to postobstructive pneumonia/right lung mass/acute exacerbation of COPD -Continue broad-spectrum antibiotics but broadened to cover Pseudomonas with Zosyn -Continue ceftriaxone -Sputum culture is pending -Strep pneumo and Legionella antigens are negative -Blood cultures are pending -Continue aggressive pulmonary toilet -Continue Solu-Medrol and will transition to oral prednisone at discharge with slow taper -Add LAMA LABA prior to discharge -I-S/Acapella -Pulmonary medicine has been consulted and plans for bronchoscopy Right-sided lung mass -Highly suspicious of malignancy -CT of chest was not contrasted but shows a right mainstem bronchus lesion with surrounding perihilar lymphadenopathy and scattered other smaller nodules in the lung youngblood -We will check CT of chest with IV contrast per discussion with pulmonary medicine -Plan is for bronchoscopy on 11/03/2022 -Pulmonary medicine is following-appreciate input Hypokalemia -Replaced and resolved Suspected COPD -No prior PFTs -Has never seen automotive repair technician -We will plan to discharge with LAMA/LABA -We will need outpatient pulmonary medicine follow-up after discharge -We will procure outpatient follow-up with pulmonary medicine prior to discharge -Anticipate supplemental oxygen needs at the time of discharge Hypertension -Continue home amlodipine GERD -Continue home Protonix DVT prophylaxis -Continue subcu heparin Charges/Coding Visit Charges Inpatient E&M: 42334 Subs Hosp L2
--- NOTE | 2022-11-01 13:45 | CASEMGMT ---
CANDICE MEMBRENO Assessment: Face to Face with pt for initial transition planning/care coordination assessment. CANDICE MEMBRENO introduced self and role at [facility], pt voices understanding and consents to assessment. Pt is A/O x4 and answers all questions appropriately at this time. Pt lying in bed with oxygen on in no distress with and son present. Pt agreeable to assessment with visitors present. Care providers, pharmacy, and demographics verified/updated. Admitting Dx: pneumonia, hypoxia, COPD PCP:Pt denies. Provided pt with a local healthcare directory pamphlet. Specialists:Pt denies Preferred Pharmacy:[facility] [place] Insurance: [employer], [employer] Other Prescription Benefit: yes LNOK: Laverne Wade, Living Arrangements: Pt lives with in a three story home with no steps to enter. 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 Pt denies concerns at home. Transportation: Pt drives self and denies concerns with transportation. DME/HHC/SNF: Pt has a FWW should he need it, pox and nebulizer at home. Pt does not use AD. Pt denies hx of HHC or SNF stays. Pt states no concerns with going home at time of dc. Currently pt does not think he will need any services. Pt to have bronchoscopy on Tuesday. Discussed should pt be dc'd with the need for oxygen, local in network DME companies, pt chose [employer]. Pt states no further concerns/needs. CM to follow. Advised pt to ask CM if any further question/concerns/needs arise, voices understanding. Pt Goal: Home Plan: Home, follow for oxygen and progression of hospitalization
[2022-11-01 14:03] LABS: International Normalized Ratio 1.1; Partial Thromboplast Time 28.3 Seconds (24.1-36.2)
[2022-11-01 14:24] LABS: ALB/GLOB Ratio 0.7 RATIO (0.9-2.4); AST(SGOT) 17 U/L (15-37); Alanine Aminotransfer ALT/SGPT 21 U/L (16-61); Alkaline Phosphatase 123 U/L (45-117); Anion Gap 6 (5-15); BUN 23 mg/dL (7-18); BUN/Creat Ratio 26.1 RATIO (10-20); Calcium,Total 9.4 mg/dL (8.5-10.1); Chloride 106 mmol/L (98-107); Creatinine, Serum 0.88 mg/dL (0.70-1.30); EST Glomerular Filtration Rate 91 mL/min (>60); Est Glom Filt Rate - Afr Amer 110 mL/min (>60); Estimated Creatinine Clearance 78.84 ml/min; Globulin 4.5 g/dL (2.2-4.2); Glucose 127 mg/dL (74-106); Potassium 3.5 mmol/L (3.5-5.1); Protein, Total 7.5 g/dL (6.4-8.2); Sodium Level 135 mmol/L (136-145)
--- NOTE | 2022-11-01 14:40 | CT_ITS ---
STUDY: CT CHEST WITH CONTRAST REASON FOR EXAM: Male, 72 years old. Lung mass RADIATION DOSAGE (If Supplied By Facility): CTDIvol = ( 12.49 ) mGy, DLP = ( 284.94 ) mGycm TECHNIQUE: Transaxial imaging was performed following intravenous administration of IV 100mL Isovue-300. Multiplanar coronal and sagittal images were reformatted. Individualized dose optimization techniques were used for this CT. COMPARISON: Comparison made with prior chest radiograph dated October 31, 2022. FINDINGS: CHEST There is a 4.1 cm by 4.9 cm x 4.7 cm soft tissue mass in the right suprahilar region adjacent to the right paratracheal region. The mass is seen protruding into the distal portion of the trachea as well as in the right upper lobe bronchus causing narrowing of the bronchus at that site. A bronchogenic carcinoma should be ruled out. There is a 1.4 cm x 1 cm spiculated mass in the right upper lobe as seen on axial image #41 and coronal image #61. Hyperinflation. Increased markings are seen in the posterior aspect of the left upper lobe suggestive of scarring. Faint 1 cm nodule is also seen in the superior lateral aspect of the left lower lobe. Reticular nodular pattern is seen in the right middle lobe as well as in the lower lobes more prominent at the right lung base. There is also evidence of bronchiectasis in the right lower lobe. There is no demonstrated pleural abnormality. There are calcifications of the coronary arteries. Normal mediastinum. Normal hilar regions. Normal unenhanced pulmonary arteries. Normal aorta arch and descending thoracic aorta. There are multi-level degenerative changes of the thoracic spine. Bilateral adrenal hyperplasia. There is a 5.8 cm x 3.7 cm cyst in the central portion of the right lobe of the liver adjacent to the laya hepatis. There is also evidence of a 2.2 cm x 3.8 cm cyst in the midportion of the right kidney. CT/Chest WITH Contrast IMPRESSION: 4.1 cm x 4.9 cm by 4.7 cm soft tissue mass in the right suprahilar region adjacent to the right paratracheal region. This causes protrusion into the distal portion of the trachea as well as in the right upper lobe bronchus causing narrowing of the bronchus at that site. There is also evidence of a 1.4 cm x 1 sinus. There are mass in the right upper lobe. Increased markings are seen at the lung bases more prominent at the right lung base as well as bronchiectasis. Bronchogenic carcinoma with metastasis should be ruled out. Right renal cyst and hepatic cyst. Adrenal hyperplasia. Electronically Signed: John Martel MD at 15:17 EDT ,
[2022-11-02] VITALS (10 sets, daily range): BP systolic 132–147; BP diastolic 81–96; PULSE 73–109; RESP 12–25; TEMP 36.4–36.8; O2SAT 84–94; BMI 20.5
[2022-11-02] MEDS: Methylprednisolone Sod Succ 40 MG/ML VIAL IV ×3 (05:02→20:51)
[2022-11-02] MEDS: 0.9% Saline Lock 10 ML Syringe IV ×3 (05:02→20:51)
[2022-11-02] MEDS: Ipratropium 0.5 MG/2.5 ML SOLUTION INHALATION ×3 (06:42→18:55)
[2022-11-02 07:11] LABS: Absolute Lymphocyte Count 1.07 X10^3/uL (0.83-4.51); Absolute Neutrophil Count 19.1 X10^3/uL (2.0-7.7); Basophil# 0.02 X10^3/uL; Basophil% 0.1 % (0-1); Hematocrit 42.2 % (40-54); Hemoglobin 14.2 g/dL (13.0-16.5); Lymphocyte # 1.07 X10^3/ul (0.83-4.51); Mean Corp Hgb Conc 33.6 g/dL (32-36); Mean Corpuscular Hgb 30.7 pg (27.0-32.0); Mean Corpuscular Volume 91.3 fL (80-94); Mean Platelet Vol. 8.6 fl (6.2-12.0); Monocyte# 1.12 X10^3/uL; Monocyte% 5.2 % (0-10); NRBC Flagged by Analyzer 0 % (0-5); Neutrophil # 19.09 X10^3/uL (2.7-7.7); Neutrophil % 88.6 % (47-70); Platelet Count 357 K/mm3 (150-450); RBC Distribution Width CV 13.8 % (11.6-14.6); RBC Distribution Width SD 46.7 fl (35.1-43.9); Red Blood Count 4.62 M/mm3 (4.6-6.2); White Blood Count 21.5 K/mm3 (4.4-11.0)
[2022-11-02 07:36] LABS: Anion Gap 4 (5-15); BUN 21 mg/dL (7-18); Calcium,Total 8.7 mg/dL (8.5-10.1); Chloride 108 mmol/L (98-107); Creatinine, Serum 0.84 mg/dL (0.70-1.30); EST Glomerular Filtration Rate 96 mL/min (>60); Est Glom Filt Rate - Afr Amer 116 mL/min (>60); Glucose 139 mg/dL (74-106); Potassium 3.9 mmol/L (3.5-5.1); Sodium Level 137 mmol/L (136-145)
[2022-11-02] MEDS: Pantoprazole Sodium 20 MG Tablet PO (08:11)
[2022-11-02] MEDS: amLODIPine 10 MG Tablet PO (08:11)
--- NOTE | 2022-11-02 08:22 | PN.CC_ITS ---
Assessment & Plan Assessment/Plan (1) Mass of right lung: PLAN: CT with contrast shows a less than 5 cm right hilar mass, possible primary versus metastasis of 1.4 x 1 cm in the right upper lobe and 1 cm left lower lobe possible metastasis. The mass has direct extension into the trachea and right upper lobe bronchus causing right lung atelectasis. Mediastinum is grossly normal. Bronchoscopy is tentatively scheduled for 1 PM on October 04 for biopsy of his right paratracheal mass and likely endobronchial lesion. After tissue biopsy is obtained, with definitive diagnosis, recommend PET scanning for initial staging. The 2.2 x 3.8 cm right renal cyst and 5.8 x 3.7 cm right liver cyst may not be malignant. PET scan will help distinguish this, as well as determining a secondary site for definitively staging for metastatic disease. Recommend urgent referral to oncology and radiation oncology - I would like to move up his pulmonary function testing to this Tuesday, to get a sense of the extent of his COPD which will help determine if he is a surgical candidate if he proves on PET scan to not have metastatic disease (i.e. 3A disease). (2) Postobstructive pneumonia: PLAN: He remains on 8 L of O2. (3) Hypertension: PLAN: Maintain BP less than 160 systolic (4) GERD (gastroesophageal reflux disease): PLAN: Well-controlled on pantoprazole. 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 -Continue bronchodilators, p.o. prednisone, with slow taper over 1 to 2 weeks. Add LAMA/LABA inhalers prior to discharge. - Fine-tune inhalers dependent on results and clinical response. - Smoking cessation - Outpatient pulmonary follow-up in 7 to 8 weeks PLAN: Plan As above Objective Data Objective Data Vital Signs: Vital Signs Temp Pulse Resp BP Pulse Ox O2 Del Method O2 Flow Rate 98.2 F 73 18 144/96 H 93 High Flow 8 11/02/22 08:06 11/02/22 08:06 11/02/22 08:06 11/02/22 08:06 11/02/22 08:06 11/02/22 08:06 11/02/22 08:06 Oxygen Flow Rate (L/min) 8 Oxygen Delivery Method High Flow Weight: 159 lb 9.835 oz Body Mass Index (BMI) 20.5 Intake & Output: Intake and Output for Last 24 Hours 10/31/22 11/01/22 11/02/22 23:59 23:59 23:59 Intake Total 856.5 / 856.5 1105 / 1105 87 / 87 Output Total 350 / 500 1450 / 1450 400 / 400 Balance 506.5 / 356.5 -345 / -345 -313 / -313 Lab / Micro Data Attestation: I reviewed the patient's lab results. 11/02/22 06:40 11/02/22 06:40 Labs: Laboratory Results - last 24 hr 10/31/22 06:22: Diff Path Review Reviewed 11/01/22 13:00: PT 14.0, INR 1.1, APTT 28.3, Sodium 135 L, Potassium 3.5, Chloride 106, Carbon Dioxide 23.0, Anion Gap 6, BUN 23 H, Creatinine 0.88, Estim Creat Clear Calc 78.84, Est GFR (MDRD) Af Amer 110, Est GFR (MDRD) Non-Af 91, BUN/Creatinine Ratio 26.1 H, Glucose 127 H, Calcium 9.4, Total Bilirubin 0.30, AST 17, ALT 21, Alkaline Phosphatase 123 H, Total Protein 7.5, Albumin 3.0 L, Globulin 4.5 H, Albumin/Globulin Ratio 0.7 L 11/02/22 06:40: WBC 21.5 H, RBC 4.62, Hgb 14.2, Hct 42.2, MCV 91.3, MCH 30.7, MCHC 33.6, RDW Std Deviation 46.7 H, RDW Coeff of Sonya 13.8, Plt Count 357, MPV 8.6, Immature Gran % (Auto) 1.100 H, Neut % (Auto) 88.6 H, Lymph % (Auto) 5.0 L, [place] % (Auto) 5.2, Eos % (Auto) 0.0, Baso % (Auto) 0.1, Absolute Neuts (auto) 1 9.1 H, Absolute Lymphs (auto) 1.07, Nucleated RBC % 0, Sodium 137, Potassium 3.9, Chloride 108 H, Carbon Dioxide 25.0, Anion Gap 4 L, BUN 21 H, Creatinine 0.84, Estim Creat Clear Calc 82.60, Est GFR (MDRD) Af Amer 116, Est GFR (MDRD) Non-Af 96, BUN/Creatinine Ratio 25.0 H, Glucose 139 H, Calcium 8.7 Micro: Microbiology 10/31/22 08:05 Blood Culture (Wb) - Right Forearm Blood Culture - Preliminary No growth in 48 hours. 10/31/22 07:50 Blood Culture (Wb) - Anticubital Left Blood Culture - Preliminary No growth in 48 hours. 10/31/22 21:20 Sputum, Expectorated/Coughed Gram Stain - Final 10/31/22 14:45 Urine, Random Legionella Antigen - Final 10/31/22 14:45 Urine, Random Streptococcus pneumoniae Antigen (M - Final 10/31/22 06:25 Nasal Secretion SARS-CoV-2 & FLU Antigen (Rapid) - Final ABG Data ABG results: ABG 11/01/22 12:50 Specimen Type ART Sample Site R Radial pH 7.48 H Bicarbonate Actual 23.7 Total CO2 25 Base Excess 0 O2 Saturation 88 L ABG pCO2 32.2 L ABG pO2 50 L Berhane Test Positive O2 Delivery Device Cannula Liter Flow 7.0 Clinical Comments 7L hfnc Radiography Diagnostic Testing: Radiology Impression Chest CT 11/01/22 14:40 IMPRESSION: 4.1 cm x 4.9 cm by 4.7 cm soft tissue mass in the right suprahilar region adjacent to the right paratracheal region. This causes protrusion into the distal portion of the trachea as well as in the right upper lobe bronchus causing narrowing of the bronchus at that site. There is also evidence of a 1.4 cm x 1 sinus. There are mass in the right upper lobe. Increased markings are seen at the lung bases more prominent at the right lung base as well as bronchiectasis. Bronchogenic carcinoma with metastasis should be ruled out. Right renal cyst and hepatic cyst. Adrenal hyperplasia. Electronically Signed: John Martel MD at 15:17 EDT , I personally reviewed this report and images. Jayro Brown MD
--- NOTE | 2022-11-02 14:49 | PCM.PN.HOSP ---
Reason for Visit Reason for Visit: Shortness of breath Subjective Subjective No specific complaints at this time. Patient states he feels okay. Remains on heated high flow nasal cannula at 7-8 L without ability to wean due to hypoxemia. No signs of respiratory distress. Plan is for bronchoscopy tomorrow. I did discuss with the patient that he would need to be n.p.o. after midnight and he voiced understanding. Objective Data Objective Data Vital Signs: Vital Signs Temp Pulse Resp BP Pulse Ox O2 Del Method O2 Flow Rate 98.2 F 100 19 H 144/96 H 93 High Flow 8 11/02/22 08:06 11/02/22 13:11 11/02/22 13:11 11/02/22 08:06 11/02/22 08:06 11/02/22 08:06 11/02/22 08:06 Oxygen Flow Rate (L/min) 8 Oxygen Delivery Method High Flow Weight: 72.4 kg Body Mass Index (BMI) 20.5 Intake & Output: Intake and Output for Last 24 Hours 10/31/22 11/01/22 11/02/22 23:59 23:59 23:59 Intake Total 856.5 / 856.5 1105 / 1105 752 / 752 Output Total 350 / 500 1450 / 1450 400 / 400 Balance 506.5 / 356.5 -345 / -345 352 / 352 Lab / Micro Data 11/02/22 06:40 11/02/22 06:40 Labs: Laboratory Results - last 24 hr 11/02/22 06:40: WBC 21.5 H, RBC 4.62, Hgb 14.2, Hct 42.2, MCV 91.3, MCH 30.7, MCHC 33.6, RDW Std Deviation 46.7 H, RDW Coeff of Sonya 13.8, Plt Count 357, MPV 8.6, Immature Gran % (Auto) 1.100 H, Neut % (Auto) 88.6 H, Lymph % (Auto) 5.0 L, [place] % (Auto) 5.2, Eos % (Auto) 0.0, Baso % (Auto) 0.1, Absolute Neuts (auto) 19.1 H, Absolute Lymphs (auto) 1.07, Nucleated RBC % 0, Sodium 137, Potassium 3.9, Chloride 108 H, Carbon Dioxide 25.0, Anion Gap 4 L, BUN 21 H, Creatinine 0.84, Estim Creat Clear Calc 82.60, Est GFR (MDRD) Af Amer 116, Est GFR (MDRD) Non-Af 96, BUN/Creatinine Ratio 25.0 H, Glucose 139 H, Calcium 8.7 Micro: Microbiology 10/31/22 21:20 Sputum, Expectorated/Coughed Gram Stain - Final 10/31/22 21:20 Sputum, Expectorated/Coughed Respiratory Culture - Preliminary Appears to be normal respiratory chloe. Further studies to follow. 10/31/22 08:05 Blood Culture (Wb) - Right Forearm Blood Culture - Preliminary No growth in 48 hours. 10/31/22 07:50 Blood Culture (Wb) - Anticubital Left Blood Culture - Preliminary No growth in 48 hours. 10/31/22 14:45 Urine, Random Legionella Antigen - Final 10/31/22 14:45 Urine, Random Streptococcus pneumoniae Antigen (M - Final 10/31/22 06:25 Nasal Secretion SARS-CoV-2 & FLU Antigen (Rapid) - Final Radiography Diagnostic Testing: Radiology Impression Chest CT 11/01/22 14:40 IMPRESSION: 4.1 cm x 4.9 cm by 4.7 cm soft tissue mass in the right suprahilar region adjacent to the right paratracheal region. This causes protrusion into the distal portion of the trachea as well as in the right upper lobe bronchus causing narrowing of the bronchus at that site. There is also evidence of a 1.4 cm x 1 sinus. There are mass in the right upper lobe. Increased markings are seen at the lung bases more prominent at the right lung base as well as bronchiectasis. Bronchogenic carcinoma with metastasis should be ruled out. Right renal cyst and hepatic cyst. Adrenal hyperplasia. Electronically Signed: John Martel MD at 15:17 EDT , Physical Exam Const alert, oriented x3 and no apparent distress; Negative for well nourished Constitutional Narrative: Thin, elderly, white male, sitting up in bed, watching television, appears comfortable and nontoxic HEENT normocephalic, head/scalp atraumatic and moist oral mucous membranes HEENT Narrative: Dentition is poor, Mallampati is 2, no thrush Resp normal respiratory effort, no retractions, no use of accessory muscles and clear to auscultation bilaterally Resp Narrative: Currently no signs of respiratory extremis, markedly diminished in the right lung field however diffuse diminished breath sounds are noted, currently on 7 L heated high flow nasal cannula Auscultation: Negative for rales, rhonchi or wheezes Cardio regular rate, regular rhythm, S1 normal heart sound, S2 normal heart sound, no murmurs, no rub, no gallops and no clicks GI normal to inspection, nondistended, normoactive bowel sounds, soft to palpation and non-tender GI Narrative: Scaphoid abdomen Extremity no clubbing, cyanosis or edema Extremity Narrative: Pedal's are 2+ Neuro oriented x3, moves all extremities and no focal motor deficits Speech: speech normal Psych affect normal Psych Narrative: Very pleasant, appropriately interactive Assessment & Plan Assessment/Plan (1) Mass of right lung: (2) Postobstructive pneumonia: (3) COPD exacerbation: (4) Hypoxia: (5) Hypokalemia: PLAN: Plan Acute hypoxia secondary to postobstructive pneumonia/right lung mass/acute exacerbation of COPD -Continue Zosyn -Sputum culture unremarkable thus far is -Strep pneumo and Legionella antigens are negative -Blood cultures with no growth to date -Respiratory viral panel is pending -Continue aggressive pulmonary toilet -Continue Solu-Medrol and will transition to oral prednisone at discharge with slow taper -Suspect patient will need to continue supplemental oxygen at discharge -We will check respiratory viral panel -Add LAMA LABA prior to discharge -I-S/Acapella -Pulmonary medicine has been consulted and plans for bronchoscopy Right-sided lung mass -Highly suspicious of malignancy -CT of chest was not contrasted but shows a right mainstem bronchus lesion with surrounding perihilar lymphadenopathy and scattered other smaller nodules in the lung youngblood -We will check CT of chest with IV contrast per discussion with pulmonary medicine -Plan is for bronchoscopy on 11/03/2022 at 1 PM -Will need outpatient PET -We will discuss with radiation oncology and oncology to set up appointment prior to discharge -Pulmonary medicine is following-appreciate input Suspected COPD -No prior PFTs -Has never seen desk reporter--> will obtain outpatient follow-up prior to discharge -We will plan to discharge with LAMA/LABA -We will need outpatient pulmonary medicine follow-up after discharge -We will procure outpatient follow-up with pulmonary medicine prior to discharge -Anticipate supplemental oxygen needs at the time of discharge Hypertension -Continue home amlodipine GERD -Continue home Protonix DVT prophylaxis -Continue subcu heparin Charges/Coding Visit Charges Inpatient E&M: 05958 Subs Hosp L2
--- NOTE | 2022-11-02 14:51 | PN.CC_ITS ---
Assessment & Plan Assessment/Plan (1) Mass of right lung: PLAN: Bronchoscopy tomorrow, intubated via endotracheal tube in the OR because of the patient's tenuous oxygenation. He should be intubated and ventilated for the procedure. - Risks alternatives and benefits discussed, expectations reviewed, questions answered, and patient agreed to proceed - Prebronchoscopy labs ordered today - N.p.o. for solids after midnight - Nothing but clears from midnight until 5 AM, then strict n.p.o. except for having his morning amlodipine with sips of fluid. -We will send for routine cytopathology and directed mutation markers to inform choice of therapy. -PET CT scan, bone scan, after malignant diagnosis is obtained for further staging, unfortunately he has a left lower lobe groundglass opacity and a 1.4 cm right upper lobe mass which are likely mets. He also has nonspecific right renal and liver right lobe abnormalities. He has no neurologic symptoms so can defer brain CT and/or MRI scan for now. -Oncology consultation after diagnosis obtained -We will follow. (2) COPD exacerbation: PLAN: Wheezing has resolved on current medication. His residual hypoxemia is therefore likely secondary to his right lung atelectasis and postobstructive changes due to tumor rather than COPD. The patient was told not to expect reexpansion of the right lung after tomorrow's procedure. Any improvement in the atelectatic right lung will likely await effective cancer treatment. - He is too sick to have pulmonary function test on 9 L of oxygen. Continue to titrate to keep O2 saturation greater than equal to 92% (3) Hypertension: PLAN: Mildly elevated, continue amlodipine (4) Postobstructive pneumonia: PLAN: As above (5) Acute respiratory failure with hypoxemia: PLAN: Due to combination of right lung atelectasis due to tumor and COPD. Treatment as above PLAN: Plan Care time spent with patient at bedside, review of documentation, lab results, radiology and other test results, discussion with colleagues and ancillary staff, clinical management of patient, and updating sister, was 40 minutes. This time does not include any procedures, if performed[place] [address]. Subjective Subjective Patient feels about the same today. He is short of breath with any exertion. He was barely able to make it to the bathroom and back on his supplemental oxygen at 9 L, drops into the 80s percent sats when he does. Minimal cough, no wheeze. Denies chest pain and hemoptysis. Its been months since he has had any aspirin Motrin Aleve or ibuprofen or similar medication. He has no unusual bleeding. We reviewed the risks and benefits of bronchoscopy, due to his persistent borderline oxygen saturation on 9 L oxygen, I prefer that he be intubated and given anesthesia for the procedure to assure a controlled airway and adequate oxygenation throughout the procedure. This was explained to the patient, as well as the risks of bleeding, infection, worsened breathing after the procedure, increased cough, hypoxia, lung collapse, the possible need to remain intubated or on CPAP after the procedure, either temporarily or permanently. Alternative approaches to the procedure were explained, of the total, bronchoscopy is most likely the safest and highest yield for this particular lung mass due to its central location. He was told that he would need further staging including a PET scan, and the results of bronchoscopy may take 1 to 2 weeks to return to the to the specialized immunologic testing that is required. His sister was sitting with him during the informed consent process, they were both given a chance to ask any questions they would like. He agreed to have the bronchoscopy with biopsy, intubated under general anesthesia, and will proceed as planned tentatively tomorrow at 1 PM. He was told not to eat anything after midnight tonight, he can have a few sips of clears up until 5:00 tomorrow morning, and then be completely n.p.o. He agreed. He was also told that the procedure may be delayed due to possible unanticipated emergency cases that will require their own OR time prior to his bronchoscopy. He will be given a chance to ask further questions when I see him before the procedure tomorrow, and he will be given a consent form to sign in the morning, after having completed the informed consent process today as documented in this note. Objective Data Objective Data Vital Signs: Vital Signs Temp Pulse Resp BP Pulse Ox O2 Del Method O2 Flow Rate 98.2 F 100 19 H 144/96 H 93 High Flow 8 11/02/22 08:06 11/02/22 13:11 11/02/22 13:11 11/02/22 08:06 11/02/22 08:06 11/02/22 08:06 11/02/22 08:06 Oxygen Flow Rate (L/min) 8 Oxygen Delivery Method High Flow Weight: 159 lb 9.835 oz Body Mass Index (BMI) 20.5 Intake & Output: Intake and Output for Last 24 Hours 10/31/22 11/01/22 11/02/22 23:59 23:59 23:59 Intake Total 856.5 / 856.5 1105 / 1105 752 / 752 Output Total 350 / 500 1450 / 1450 400 / 400 Balance 506.5 / 356.5 -345 / -345 352 / 352 BMI 20 Lab / Micro Data Attestation: I reviewed the patient's lab results. 11/02/22 06:40 11/02/22 06:40 Labs: Laboratory Results - last 24 hr 11/02/22 06:40: WBC 21.5 H, RBC 4.62, Hgb 14.2, Hct 42.2, MCV 91.3, MCH 30.7, MCHC 33.6, RDW Std Deviation 46.7 H, RDW Coeff of Sonya 13.8, Plt Count 357, MPV 8.6, Immature Gran % (Auto) 1.100 H, Neut % (Auto) 88.6 H, Lymph % (Auto) 5.0 L, [place] % (Auto) 5.2, Eos % (Auto) 0.0, Baso % (Auto) 0.1, Absolute Neuts (auto) 19.1 H, Absolute Lymphs (auto) 1.07, Nucleated RBC % 0, Sodium 137, Potassium 3.9, Chloride 108 H, Carbon Dioxide 25.0, Anion Gap 4 L, BUN 21 H, Creatinine 0.84, Estim Creat Clear Calc 82.60, Est GFR (MDRD) Af Amer 116, Est GFR (MDRD) Non-Af 96, BUN/Creatinine Ratio 25.0 H, Glucose 139 H, Calcium 8.7 Micro: Microbiology 10/31/22 21:20 Sputum, Expectorated/Coughed Gram Stain - Final 10/31/22 21:20 Sputum, Expectorated/Coughed Respiratory Culture - Preliminary Appears to be normal respiratory chloe. Further studies to follow. 10/31/22 08:05 Blood Culture (Wb) - Right Forearm Blood Culture - Prelimin sravan No growth in 48 hours. 10/31/22 07:50 Blood Culture (Wb) - Anticubital Left Blood Culture - Preliminary No growth in 48 hours. 10/31/22 14:45 Urine, Random Legionella Antigen - Final 10/31/22 14:45 Urine, Random Streptococcus pneumoniae Antigen (M - Final 10/31/22 06:25 Nasal Secretion SARS-CoV-2 & FLU Antigen (Rapid) - Final ABG Data ABG results: ABG November 01, 2022 reviewed, showing no CO2 retention and hypoxia on 7 L/min O2. Radiography Diagnostic Testing: Radiology Impression Chest CT 11/01/22 14:40 IMPRESSION: 4.1 cm x 4.9 cm by 4.7 cm soft tissue mass in the right suprahilar region adjacent to the right paratracheal region. This causes protrusion into the distal portion of the trachea as well as in the right upper lobe bronchus causing narrowing of the bronchus at that site. There is also evidence of a 1.4 cm x 1 sinus. There are mass in the right upper lobe. Increased markings are seen at the lung bases more prominent at the right lung base as well as bronchiectasis. Bronchogenic carcinoma with metastasis should be ruled out. Right renal cyst and hepatic cyst. Adrenal hyperplasia. Electronically Signed: John Martel MD at 15:17 EDT , Physical Exam Narrative Well-developed slender gentleman with BMI of 20.5 in no respiratory distress. He did not cough during today's visit. I did not observe him ambulating. HEENT: Extraoculars are intact pupils are equal anicteric conjunctiva noninjected. Mouth has no thrush. Neck examined yesterday.. Chest is diminished bilaterally with good air movement on the left and diminished air movement on the right anterior, lateral and posterior upper lobe, right lower lobe, partial aeration of the superior segment of the right lower lobe normal aeration of the right middle lobe medial and lateral segments and anterior right lower lobe.. No rhonchi, no wheezes or crackles. Heart: Normal S1-S2 tachycardic at 102 109 on monitor, with no murmurs rubs or gallops Abdomen is soft, nontender, no organomegaly or mass. Extremities appear clubbed (error in yesterday's note which said cold but should have read clubbed due to Dragon dictation misheard), no cyanosis or edema. Neurologic exam is nonfocal grossly, limited exam with no gait tested. He is alert and oriented x3, good historian. Skin is warm and dry. Charges/Coding Visit Charges Inpatient E&M: 31886 Subs Hosp L3
--- NOTE | 2022-11-02 15:11 | NURSING ---
Pt on continous spo2 in room. This RN entered room to round on pt and spo2 showing 84% on 8L Highflow w/pt laying in bed but clearly was working harder to breathe. Pt wanted to get up to go to BR. This RN would not let him. Pt Hr was also tachy at 116. This RN increased Highflow to 15 and then waited several min. Spo2 then came up to 92%. This RN then assisted pt into getting onto bsc and pt had a BM. spo2 dropped to 87% on 15L Highflow while out of bed on bsc. Several minutues after quickly returning to bed, pt spo2 93% on 15L Highflow. This RN will leave on 15L HighFlow for another little bit.
[2022-11-02 15:34] LABS: Absolute Lymphocyte Count 1.35 X10^3/uL (0.83-4.51); Absolute Neutrophil Count 23.3 X10^3/uL (2.0-7.7); Basophil# 0.07 X10^3/uL; Basophil% 0.3 % (0-1); Eosinophil# 0.01 X10^3/uL; Hematocrit 43.6 % (40-54); Hemoglobin 14.9 g/dL (13.0-16.5); Lymphocyte # 1.35 X10^3/ul (0.83-4.51); Lymphocyte % 4.9 % (19-41); Mean Corp Hgb Conc 34.2 g/dL (32-36); Mean Corpuscular Hgb 31.2 pg (27.0-32.0); Mean Corpuscular Volume 91.4 fL (80-94); Mean Platelet Vol. 8.6 fl (6.2-12.0); Monocyte# 2.65 X10^3/uL; Monocyte% 9.6 % (0-10); NRBC Flagged by Analyzer 0 % (0-5); Neutrophil # 23.27 X10^3/uL (2.7-7.7); Neutrophil % 84.3 % (47-70); POSITIVE DIFFERENTIAL YES; Platelet Count 369 K/mm3 (150-450); RBC Distribution Width CV 13.8 % (11.6-14.6); RBC Distribution Width SD 46.5 fl (35.1-43.9); Red Blood Count 4.77 M/mm3 (4.6-6.2); White Blood Count 27.6 K/mm3 (4.4-11.0)
[2022-11-02 15:37] LABS: Differential Indicated SCAN CRITERIA MET
[2022-11-02 15:48] LABS: International Normalized Ratio 1.1; Prothrombin Time (Protime)PT. 14.4 SECONDS (11.7-14.9)
[2022-11-02 15:49] LABS: Partial Thromboplast Time 26.6 Seconds (24.1-36.2)
[2022-11-02 15:52] LABS: ALB/GLOB Ratio 0.7 RATIO (0.9-2.4); AST(SGOT) 16 U/L (15-37); Alanine Aminotransfer ALT/SGPT 21 U/L (16-61); Albumin, Serum 2.7 g/dL (3.2-5.0); Alkaline Phosphatase 103 U/L (45-117); Anion Gap 7 (5-15); BUN 27 mg/dL (7-18); BUN/Creat Ratio 24.3 RATIO (10-20); Calcium,Total 8.8 mg/dL (8.5-10.1); Chloride 110 mmol/L (98-107); Creatinine, Serum 1.11 mg/dL (0.70-1.30); EST Glomerular Filtration Rate 69 mL/min (>60); Est Glom Filt Rate - Afr Amer 84 mL/min (>60); Estimated Creatinine Clearance 62.51 ml/min; Globulin 4.1 g/dL (2.2-4.2); Glucose 126 mg/dL (74-106); Potassium 3.7 mmol/L (3.5-5.1); Protein, Total 6.8 g/dL (6.4-8.2); Sodium Level 139 mmol/L (136-145)
[2022-11-02 16:00] LABS: Differential Comment SCANNED
--- NOTE | 2022-11-02 17:49 | NURSING ---
Pt was still on 15L High flow. REspiratory came in to turn pt down from 15L and turned him to 13L High flow but pt spo2 dropped to 84%. Respiratory put pt back on 15L High flow and then this Nurse called dR. Dial and got order for Bipap. Pt on Bipap at this time. ABG's ordered as well. spo2 94% on Continous spo2 monitor.
[2022-11-02 18:05] LABS: Allen Test Positive; Base Excess 0 mmol/L (-2 to +2); Bicarbonate 24.4 mmol/L (22-26); Blood Gas Specimen Type ART; FI02 70; O2 Delivery Device BiPAP; PEEP 10; PO2 83 mmHG (75-100); RR 12; SITE R Radial; SO2 96 % (95-99); Total Carbon Dioxide 26 mmol/L; pCO2 37.4 mmHg (35-45); pH 7.42 (7.35-7.45)
[2022-11-02 20:28] LABS: Allen Test Positive; Base Excess 1 mmol/L (-2 to +2); Bicarbonate 24.9 mmol/L (22-26); Blood Gas Specimen Type ART; FI02 70; O2 Delivery Device CPAP; PO2 64 mmHG (75-100); SITE L Radial; SO2 93 % (95-99); Total Carbon Dioxide 26 mmol/L; pCO2 35.9 mmHg (35-45); pH 7.45 (7.35-7.45)
[2022-11-03] VITALS (39 sets, daily range): BP systolic 110–165; BP diastolic 87–106; PULSE 68–115; RESP 12–55; TEMP 36.3–37.3; O2SAT 69–97; BMI 20.5
--- NOTE | 2022-11-03 02:50 | NURSING ---
pulse ox ringing nurse in to check on pt,pt had taken airvo off to urinate in urinal & blow his nose, it was back on when entered room. cps called for breathing treatment.
[2022-11-03] MEDS: Albuterol 2.5 MG/3 ML VIAL.NEB. INHALATION ×2 (03:05→11:30)
--- NOTE | 2022-11-03 03:28 | RAD_ITS ---
EXAM: XR CHEST, 1 VIEW CLINICAL INDICATION: sob TECHNIQUE: Frontal view of the chest. COMPARISON: Previous chest radiographs of 10/31/2022. Chest CT of 11/01/2022. FINDINGS: LUNGS AND PLEURAL SPACES: A subtle 2 cm stellate density seen in the right suprahilar region, with corresponding stellate mass seen in this area on the prior chest CT. Minimal patchy airspace disease noted within the right mid to lower lung, greatest within the medial aspect of the right lower lung, consistent with pneumonia, improved as compared to the prior chest radiograph. There is stable right-sided volume loss with shift of the mediastinal structures to the right. On the left, the perihilar infiltrates have resolved. Minimal hazy density has developed within the left mid to upper lung laterally where groundglass opacities noted on the prior chest CT. No pneumothorax or pleural effusion. HEART: Heart size remains within normal limits. There is hyperinflation of the lungs and pruning of peripheral pulmonary vascular markings due to pulmonary emphysema. No pulmonary venous hypertension. MEDIASTINUM: Persistent soft tissue fullness in the lower right paratracheal region where a large mass was seen on the prior CT. Stable elongation of the thoracic aorta. BONES/JOINTS: No acute osseous abnormality. SOFT TISSUES: Unremarkable. 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 Improving patchy airspace disease in the right mid to lower lung, consistent with improving pneumonia. Minimal haziness in the left mid to upper lung laterally where groundglass opacities were noted on the prior chest CT, and this may be due to additional pneumonia. Findings of pulmonary emphysema again noted. Stable volume loss on the right with shift of the mediastinal structures to the right. Electronically Signed: Keshav Boswell MD at 4:32 EDT ,
[2022-11-03] MEDS: 0.9% Saline Lock 10 ML Syringe IV ×3 (03:50→19:51)
[2022-11-03] MEDS: Furosemide 40 MG/4 ML Vial IV ×2 (03:50→09:11)
[2022-11-03] MEDS: Methylprednisolone Sod Succ 40 MG/ML VIAL IV ×3 (04:11→19:47)
[2022-11-03 05:04] LABS: Absolute Lymphocyte Count 0.79 X10^3/uL (0.83-4.51); Absolute Neutrophil Count 21.8 X10^3/uL (2.0-7.7); Basophil# 0.03 X10^3/uL; Basophil% 0.1 % (0-1); Eosinophil# 0.01 X10^3/uL; Hematocrit 45.2 % (40-54); Hemoglobin 15.5 g/dL (13.0-16.5); Lymphocyte # 0.79 X10^3/ul (0.83-4.51); Lymphocyte % 3.3 % (19-41); Mean Corp Hgb Conc 34.3 g/dL (32-36); Mean Corpuscular Hgb 30.9 pg (27.0-32.0); Mean Corpuscular Volume 90.2 fL (80-94); Mean Platelet Vol. 8.5 fl (6.2-12.0); Monocyte# 1.12 X10^3/uL; Monocyte% 4.7 % (0-10); NRBC Flagged by Analyzer 0 % (0-5); Neutrophil # 21.84 X10^3/uL (2.7-7.7); Neutrophil % 91.2 % (47-70); POSITIVE DIFFERENTIAL YES; Platelet Count 342 K/mm3 (150-450); RBC Distribution Width CV 14.1 % (11.6-14.6); RBC Distribution Width SD 46.6 fl (35.1-43.9); Red Blood Count 5.01 M/mm3 (4.6-6.2)
[2022-11-03 05:18] LABS: BNP,B-Type NATRIURETIC PEPTIDE 56.7 pg/mL (0-100)
[2022-11-03 05:20] LABS: Differential Indicated SCAN CRITERIA MET
[2022-11-03 05:48] LABS: Anion Gap 4 (5-15); BUN 23 mg/dL (7-18); BUN/Creat Ratio 24.1 RATIO (10-20); Chloride 108 mmol/L (98-107); Creatinine, Serum 0.96 mg/dL (0.70-1.30); EST Glomerular Filtration Rate 83 mL/min (>60); Est Glom Filt Rate - Afr Amer 100 mL/min (>60); Estimated Creatinine Clearance 72.27 ml/min; Glucose 161 mg/dL (74-106); Potassium 3.9 mmol/L (3.5-5.1); Sodium Level 138 mmol/L (136-145)
[2022-11-03 06:38] LABS: Differential Comment SCANNED
[2022-11-03] MEDS: Ipratropium 0.5 MG/2.5 ML SOLUTION INHALATION ×2 (07:20→19:02)
[2022-11-03] MEDS: Pantoprazole Sodium 20 MG Tablet PO (07:53)
[2022-11-03] MEDS: amLODIPine 10 MG Tablet PO (07:53)
[2022-11-03 08:53] LABS: Procalcitonin 0.06 ng/mL (0.00-0.09)
[2022-11-03] MEDS: guaiFENesin 1,200 MG Tablet 1200 MG PO ×2 (09:11→19:47)
--- NOTE | 2022-11-03 10:21 | PCM.PN.INT ---
Assessment & Plan Assessment/Plan (1) Mass of right lung: PLAN: Bronchoscopy canceled due to respiratory instability and increased O2 requirement, currently on 90% FiO2, transferring to ICU. - In lieu of bronchoscopy, until patient stabilizes, will get daily sputum cytology x3 in hopes of making a diagnosis and noninvasively - Patient is at high risk of needing intubation, he he will be watched closely and intubated if necessary. - Continue empiric antibiotics and high-dose steroids to help decrease swelling around tumor and treat COPD - Patient agreed to having intubation if necessary - Benadryl 50 mg IV every 6 hours as needed agitation/anxiety. We should avoid any benzodiazepine or narcotic at this time due to the risk of precipitating respiratory failure and intubation. Discussed with hospitalist team, will follow Subjective Subjective Patient stated he had a rough night he required 70% Airvo overnight which was increased to 90% FiO2 today when I saw him. He has had increased cough which is nonproductive, wheezing, dyspnea, no fevers chills or sweats. His exam today suggests that this is because he has had at least partial reopening of his right atelectatic lung, likely a benefit of IV steroids over the past few days. Due to his clinical deterioration and increased FiO2 requirement, he is not a candidate for bronchoscopy at this time, and the procedure planned for today was canceled. Transferred from floor to ICU due to worsened hypoxic respiratory failure, to monitor closely for further deterioration and need for intubation. Stat chest x-ray ordered, and does show reexpansion of the right middle lobe, with some reexpansion pulmonary edema which is the likely cause of his worsened hypoxia. Objective Data Objective Data Vital Signs: Vital Signs Temp Pulse Resp BP Pulse Ox O2 Del Method O2 Flow Rate 99.1 F 91 20 H 165/89 H 91 Airvo 70 11/03/22 07:46 11/03/22 09:15 11/03/22 09:15 11/03/22 07:46 11/03/22 09:15 11/03/22 09:15 11/03/22 09:15 FiO2 50 11/03/22 09:15 Oxygen Flow Rate (L/min) 70 Oxygen Delivery Method Airvo Weight: 159 lb 9.835 oz Body Mass Index (BMI) 20.5 Intake & Output: Intake and Output for Last 24 Hours 11/01/22 11/02/2211/03/23 23:59 23:59 23:59 Intake Total 1105 / 1105 1129.5 / 1129.5 435.25 / 435.25 Output Total 1450 / 1450 1100 / 1100 2675 / 2675 Balance -345 / -345 29.5 / 29.5 -2239.75 / -2239.75 Lab / Micro Data 11/03/22 04:55 11/03/22 04:55 Labs: Laboratory Results - last 24 hr 11/02/22 15:25: WBC 27.6 H, RBC 4.77, Hgb 14.9, Hct 43.6, MCV 91.4, MCH 31.2, MCHC 34.2, RDW Std Deviation 46.5 H, RDW Coeff of Sonya 13.8, Plt Count 369, MPV 8.6, Immature Gran % (Auto) 0.900, Neut % (Auto) 84.3 H, Lymph % (Auto) 4.9 L, [place] % (Auto) 9.6, Eos % (Auto) 0.0, Baso % (Auto) 0.3, Absolute Neuts (auto) 23.3 H, Absolute Lymphs (auto) 1.35, Nucleated RBC % 0, Differential Comment SCANNED, Diff Path Review August, PT 14.4, INR 1.1, APTT 26.6, Sodium 139, Potassium 3.7, Chloride 110 H, Carbon Dioxide 22.0, Anion Gap 7, BUN 27 H, Creatinine 1.11, Estim Creat Clear Calc 62.51, Est GFR (MDRD) Af Amer 84, Est GFR (MDRD) Non-Af 69, BUN/Creatinine Ratio 24.3 H, Glucose 126 H, Calcium 8.8, Total Bilirubin 0.30, AST 16, ALT 21, Alkaline Phosphatase 103, Total Protein 6.8, Albumin 2.7 L, Globulin 4.1, Albumin/Globulin Ratio 0.7 L 11/03/22 04:55: WBC 24.0 H, RBC 5.01, Hgb 15.5, Hct 45.2, MCV 90.2, MCH 30.9, MCHC 34.3, RDW Std Deviation 46.6 H, RDW Coeff of Sonya 14.1, Plt Count 342, MPV 8.5, Immature Gran % (Auto) 0.700, Neut % (Auto) 91.2 H, Lymph % (Auto) 3.3 L, [place] % (Auto) 4.7, Eos % (Auto) 0.0, Baso % (Auto) 0.1, Absolute Neuts (auto) 21.8 H, Absolute Lymphs (auto) 0.79 L, Nucleated RBC % 0, Differential Comment SCANNED, Sodium 138, Potassium 3.9, Chloride 108 H, Carbon Dioxide 26.0, Anion Gap 4 L, BUN 23 H, Creatinine 0.96, Estim Creat Clear Calc 72.27, Est GFR (MDRD) Af Amer 100, Est GFR (MDRD) Non-Af 83, BUN/Creatinine Ratio 24.1 H, Glucose 161 H, Calcium 9.0, B-Natriuretic Peptide 56.7, Procalcitonin 0.06 Micro: Microbiology 10/31/22 21:20 Sputum, Expectorated/Coughed Gram Stain - Final 10/31/22 21:20 Sputum, Expectorated/Coughed Respiratory Culture - Preliminary 11/02/22 15:08 Mucosa - Nose Respiratory Panel (PCR) - Final 10/31/22 08:05 Blood Culture (Wb) - Right Forearm Blood Culture - Preliminary No growth in 48 hours. 10/31/22 07:50 Blood Culture (Wb) - Anticubital Left Blood Culture - Preliminary No growth in 48 hours. 10/31/22 14:45 Urine, Random Legionella Antigen - Final 10/31/22 14:45 Urine, Random Streptococcus pneumoniae Antigen (M - Final 10/31/22 06:25 Nasal Secretion SARS-CoV-2 & FLU Antigen (Rapid) - Final ABG Data ABG results: ABG 11/02/22 11/02/22 18:01 20:24 Specimen Type ART ART Sample Site R Radial L Radial pH 7.42 7.45 Bicarbonate Actual 24.4 24.9 Total CO2 26 26 Base Excess 0 1 O2 Saturation 96 93 L O2 % 70 70 ABG pCO2 37.4 35.9 ABG pO2 83 64 L Berhane Test Positive Positive Respiration Rate 12 O2 Delivery Device BiPAP CPAP POC PEEP 10 Clinical Comments AirVo 50L 70% Attestation: I personally reviewed and interpreted this ABG as follows: Interpretation: Acute hypoxic respiratory failure, with normal acid-base status and adequate oxygen supplementation on 70% FiO2 Radiography Diagnostic Testing: Radiology Impression Chest X-Ray 11/03/22 03:28 IMPRESSION: 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 Improving patchy airspace disease in the right mid to lower lung, consistent with improving pneumonia. Minimal haziness in the left mid to upper lung laterally where groundglass opacities were noted on the prior chest CT, and this may be due to additional pneumonia. Findings of pulmonary emphysema again noted. Stable volume loss on the right with shift of the mediastinal structures to the right. Electronically Signed: Keshav Boswell MD at 4:32 EDT , Physical Exam Narrative Well-developed slender gentleman with BMI of 20.5 in moderate respiratory distress on 70% nasal Airvo. He had a constant hacking dry cough that worsened with deep breathing and change in position. He is more comfortable laying on his back at 30 degrees. HEENT: Extraoculars are intact pupils are equal anicteric conjunctiva noninjected. Mouth has no thrush. Neck no change Chest has improved aeration on the right, with squeaking ventilations consistent with partially blocked airways. He also has good air movement on the left with moderate diffuse expiratory wheezing, no rhonchi, no consolidation. Wheezing is worse compared to yesterday when he had no wheezing in the left lung. Heart: Normal S1-S2 tachycardic at 100 teens on monitor, with no murmurs rubs or gallops Abdomen is soft, nontender, no organomegaly or mass. Extremities clubbed, no cyanosis or edema. Neurologic exam is nonfocal grossly Skin is warm and dry.
--- NOTE | 2022-11-03 11:50 | NURSING ---
Mami Perdue Charge Nurse called- confirmed with Dr. Brown for her Bronch is cancelled. Primary RN, Dr. Dial and hog room supervisor aware
--- NOTE | 2022-11-03 11:50 | RAD_ITS ---
STUDY: X-RAY CHEST REASON FOR EXAM: Male, 72 years old. Hypoxia TECHNIQUE: Single AP portable view of the chest. COMPARISON: Comparison is made with prior study done earlier in the day at 3:44 AM. FINDINGS: Hyperinflation. Stable hyperinflation of the left lung. Faintly seen nodule in the right lung apex. Increased markings are seen in the right midlung suggestive of possible infiltrate. Normal size heart. Stable prominence of the right hilum. Normal visualized pulmonary arteries. There is atherosclerotic tortuosity of the aortic arch and descending thoracic aorta. Normal visualized thoracic spine. Normal visualized ribs, clavicles, and shoulders. There is no demonstrated abnormality of the visualized soft tissue structures of the upper abdomen. RAD/Chest 1 View (Portable) IMPRESSION: Stable examination. Electronically Signed: John Martel MD at 12:39 EDT ,
--- NOTE | 2022-11-03 12:05 | NURSING ---
Primary RN updated on patient. noted spo2 maintaining in mid 80's sputum sent patient states coughed up. noted on Airvo 50L 78% pt appears SOB . Discussed conversation she had with Dr. Dial about parameters for spo2. aware ibrahima texting Dr. Dial. CPS called to put patient on bipap as Dr. Dial replied. 1208 Dr. Brown on unit, Ibrahima discussed patient with Dr. Brown. aware instructed to turn airvo up to 100% if not effective place on Bipap if not improved with bipap in 20-30 min will transfer to ICU. 1217 CPS at bedside this nurse had increased airvo to 50L 91% pt maintained in mid 80's. CPS increased to 60L-86% aware pt refusing bipap and ibrahima talking with Dr. Brown. [address] Brown informed of pt's status and ordering to transfer to ICU.
--- NOTE | 2022-11-03 12:22 | NURSING ---
lead warehouse associate informed of Dr. Bailey verbal orders to transfer to ICU.
--- NOTE | 2022-11-03 12:29 | NURSING ---
Primary RN aware ICU4, placing patient on tele
--- NOTE | 2022-11-03 12:42 | NURSING ---
Primary RN, CPS, and summer associate transported patient to ICU on CSPO2, Tele and Airvo.
[2022-11-03] MEDS: DiphenhydrAMINE 50 MG/ML Syringe IV (14:01)
--- NOTE | 2022-11-03 18:32 | PN.HOSP_ITS ---
Reason for Visit Reason for Visit: Shortness of breath Subjective Subjective Patient with worsening respiratory status and required initiation of Airvo last evening. Had a coughing spell with hypoxia and required transfer to the ICU. Currently stable on Airvo at 92%. Bronchoscopy held due to worsening respiratory status. Patient did confirm that coughing seems to make his symptoms worse Objective Data Objective Data Vital Signs: Vital Signs Temp Pulse Resp BP Pulse Ox O2 Del Method O2 Flow Rate 98.6 F 105 H 19 H 136/101 H 92 Airvo 60 11/03/22 18:00 11/03/22 18:00 11/03/22 18:00 11/03/22 18:00 11/03/22 18:00 11/03/22 18:00 11/03/22 12:58 FiO2 92 11/03/22 18:00 Oxygen Flow Rate (L/min) 60 Oxygen Delivery Method Airvo Weight: 72.4 kg Body Mass Index (BMI) 20.5 Intake & Output: Intake and Output for Last 24 Hours 11/01/22 11/02/22 11/03/22 23:59 23:59 23:59 Intake Total 1105 / 1105 1129.5 / 1129.5 495.75 / 495.75 Output Total 1450 / 1450 1100 / 1100 4275 / 4275 Balance -345 / -345 29.5 / 29.5 -3779.25 / -3779.25 Lab / Micro Data 11/03/22 04:55 11/03/22 04:55 Labs: Laboratory Results - last 24 hr 11/03/22 04:55: WBC 24.0 H, RBC 5.01, Hgb 15.5, Hct 45.2, MCV 90.2, MCH 30.9, MCHC 34.3, RDW Std Deviation 46.6 H, RDW Coeff of Sonya 14.1, Plt Count 342, MPV 8.5, Immature Gran % (Auto) 0.700, Neut % (Auto) 91.2 H, Lymph % (Auto) 3.3 L, [place] % (Auto) 4.7, Eos % (Auto) 0.0, Baso % (Auto) 0.1, Absolute Neuts (auto) 21.8 H, Absolute Lymphs (auto) 0.79 L, Nucleated RBC % 0, Differential Comment SCANNED, Sodium 138, Potassium 3.9, Chloride 108 H, Carbon Dioxide 26.0, Anion Gap 4 L, BUN 23 H, Creatinine 0.96, Estim Creat Clear Calc 72.27, Est GFR (MDRD) Af Amer 100, Est GFR (MDRD) Non-Af 83, BUN/Creatinine Ratio 24.1 H, Glucose 161 H, Calcium 9.0, B-Natriuretic Peptide 56.7, Procalcitonin 0.06 Micro: Microbiology 10/31/22 21:20 Sputum, Expectorated/Coughed Gram Stain - Final 10/31/22 21:20 Sputum, Expectorated/Coughed Respiratory Culture - Final Presumptive C albicans 11/02/22 15:08 Mucosa - Nose Respiratory Panel (PCR) - Final 10/31/22 08:05 Blood Culture (Wb) - Right Forearm Blood Culture - Preliminary No growth in 48 hours. 10/31/22 07:50 Blood Culture (Wb) - Anticubital Left Blood Culture - Preliminary No growth in 48 hours. 10/31/22 14:45 Urine, Random Legionella Antigen - Final 10/31/22 14:45 Urine, Random Streptococcus pneumoniae Antigen (M - Final 10/31/22 06:25 Nasal Secretion SARS-CoV-2 & FLU Antigen (Rapid) - Final ABG Data ABG results: ABG 11/02/22 20:24 Specimen Type ART Sample Site L Radial pH 7.45 Bicarbonate Actual 24.9 Total CO2 26 Base Excess 1 O2 Saturation 93 L O2 % 70 ABG pCO2 35.9 ABG pO2 64 L Berhane Test Positive O2 Delivery Device CPAP Clinical Comments AirVo 50L 70% Radiography Diagnostic Testing: Radiology Impression Chest X-Ray 11/03/22 03:28 IMPRESSION: 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 Improving patchy airspace disease in the right mid to lower lung, consistent with improving pneumonia. Minimal haziness in the left mid to upper lung laterally where groundglass opacities were noted on the prior chest CT, and this may be due to additional pneumonia. Findings of pulmonary emphysema again noted. Stable volume loss on the right with shift of the mediastinal structures to the right. Electronically Signed: Keshav Boswell MD at 4:32 EDT , Chest X-Ray 11/03/22 11:50 IMPRESSION: Stable examination. Electronically Signed: John Martel MD at 12:39 EDT , Physical Exam Const alert, oriented x3 and no apparent distress; Negative for well nourished Constitutional Narrative: Thin, elderly, white male, sitting up in bed, watching television, appears comfortable and nontoxic, currently on Airvo HEENT normocephalic, head/scalp atraumatic and moist oral mucous membranes HEENT Narrative: Dentition is poor, Mallampati is 1, no thrush Resp normal respiratory effort, no retractions, no use of accessory muscles and clear to auscultation bilaterally Resp Narrative: On Airvo with no signs of respiratory distress at the time of my evaluation, improved aeration in the right lung field with worsening rhonchi in the left lung field Auscultation: Negative for rales, rhonchi or wheezes Cardio regular rhythm, S1 normal heart sound, S2 normal heart sound, no murmurs, no rub, no gallops and no clicks Cardio Narrative: Mild tachycardia GI normal to inspection, nondistended, normoactive bowel sounds, soft to palpation and non-tender GI Narrative: Scaphoid abdomen Extremity no clubbing, cyanosis or edema Extremity Narrative: Pedal's are 2+ Neuro oriented x3, moves all extremities and no focal motor deficits Speech: speech normal Psych affect normal Psych Narrative: Very pleasant, appropriately interactive Assessment & Plan Assessment/Plan (1) Mass of right lung: (2) Postobstructive pneumonia: (3) COPD exacerbation: (4) Hypoxia: (5) Hypokalemia: (6) Acute respiratory failure with hypoxemia: PLAN: Plan Acute hypoxic respiratory failure secondary to postobstructive pneumonia/right lung mass/acute exacerbation of COPD -Continue Zosyn -Sputum culture currently only showing Louise albicans -Strep pneumo and Legionella antigens are negative -Blood cultures with no growth to date -Respiratory viral panel negative -Continue aggressive pulmonary toilet -Continue Solu-Medrol and will transition to oral prednisone at discharge with slow taper -Suspect patient will need to continue supplemental oxygen at discharge -Add LAMA LABA prior to discharge -I-S/Acapella -640x1 dose given to see if this could help optimize his respiratory status at all -Pulmonary medicine has been consulted and continues to follow with bronchoscopy on hold Right-sided lung mass -Highly suspicious of malignancy -CT of chest was not contrasted but shows a right mainstem bronchus lesion with surrounding perihilar lymphadenopathy and scattered other smaller nodules in the lung youngblood -We will check CT of chest with IV contrast per discussion with pulmonary medicine -Bronchoscopy on hold due to worsening respiratory status -Trying to get sputum for cytology daily for 3 days in hopes of making a noninvasive diagnosis -Will need outpatient PET -We will discuss with radiation oncology and oncology to set up appointment prior to discharge -Pulmonary medicine is following-appreciate input Suspected COPD -No prior PFTs -Has never seen veneer glue spreader--> will obtain outpatient follow-up prior to discharge -We will plan to discharge with LAMA/LABA -We will need outpatient pulmonary medicine follow-up after discharge -We will procure outpatient follow-up with pulmonary medicine prior to discharge -Anticipate supplemental oxygen needs at the time of discharge Hypertension -Continue home amlodipine GERD -Continue home Protonix DVT prophylaxis -Continue subcu heparin Charges/Coding Visit Charges Inpatient E&M: 75028 Subs Hosp L2
--- NOTE | 2022-11-03 18:39 | NURSING ---
Despite education, pt adamately declines bipap at this time. Pt has coughing spells and pt desats to the low to mid 80s, even 70s at times. Pt stating as long as he is in the 80s he will not wear bipap. Again, educated that he may not be able to compensate the longer his sats stay low and therefore will require intubation. Pt continues to decline bipap use. Will monitor. Encouraged not to eat, which he is agreeable to.
[2022-11-03] MEDS: LORazepam 0.5 MG Tablet 2 MG PO (19:51)
[2022-11-03] MEDS: LORazepam 2 MG/ML Syringe IV (23:45)
[2022-11-04] VITALS (44 sets, daily range): BP systolic 73–188; BP diastolic 61–126; PULSE 89–183; RESP 12–40; TEMP 35.9–37.7; O2SAT 44–95; BMI 19.7
--- NOTE | 2022-11-04 00:53 | NURSING ---
0050- Dr. Berumen is at bedside assessing patient. Patient keeps tearing off bipap mask despite education on importance of oxygen needs and SPO2 dropping into the 70s. Preparing for intubation with Dr. Berumen, RT and several RNs at bedside 0055- Etomidate 20mg IVP administered 0056- Succ 100mg IVP administered 0057- Patient successfully intubated. 7.5 ETT, 22cm @ the lip. Bilateral breath sounds heard and positive color change. New orders to follow.
[2022-11-04] MEDS: Etomidate 20 MG/10 ML Vial IV (00:55)
[2022-11-04] MEDS: Succinylcholine Chloride 200 MG/10 ML SYRINGE 100 MG IV ×3 (00:56→01:53)
--- NOTE | 2022-11-04 01:00 | RAD_ITS ---
EXAM: XR Chest 1 View INDICATION: Male, 72 years old. Respiratory failure TECHNIQUE: Single AP view COMPARISON: 11/03/2022 FINDINGS: DEVICES: There has been interval placement of an endotracheal tube with the tip projecting approximately 10 cm above the nathen. There has been interval placement of a nasogastric tube which extends below the diaphragm with the tip projecting over the antrum. LUNGS: Patchy airspace infiltration throughout the right lung, worsened from prior imaging. No pleural effusion or pneumothorax. Decreased lung volume on the right. MEDIASTINUM: Cardiac and mediastinal silhouettes are within normal limits. Rightward shift of mediastinal structures. No central pulmonary vascular congestion. . SKELETAL STRUCTURES: No acute skeletal abnormality. UPPER ABDOMEN: Unremarkable RAD/Chest 1 View (Portable) IMPRESSION: 1. Endotracheal tube tip 10 cm above the nathen and nasogastric tube tip projecting over the antrum. 2. Diffuse right-sided infiltrate Electronically Signed: Rocael Evangelista MD at 2:29 EDT ,
[2022-11-04] MEDS: Propofol 10MG/Ml 1,000 MG/100 ML Bottle 4.3 MG CONT INF (01:15)
[2022-11-04] MEDS: fentaNYL drip 100 ML 5 MCG CONT INF (01:15)
--- NOTE | 2022-11-04 01:20 | FLU_PTH ---
PATIENT: SADIE EATON LOC: [facility] U#:[id number] AGE/SX: 72/M ROOM: ICU04 RE10/31/[address]: Dr. Kaylie Dial DO : 1950 BED: 1 DIS: 11/06/2022 SPEC #: [id number] RECD: 11/04/22 11:33 STATUS: CARMINA RE #: [id number] EVGENY: 11/04/22 01:[address]: Jayro Brown DEPT: CYTOLOGY RECD BY: Jessica Acuna ENTERED: 11/04/22 11:33 SP TYPE: Fluid OTHR DR: MD Dr. Diego Harmon MD Dr. Derek Brown, DO Dr. Kaylie Dial, DO Dr. Nate Tellez, DO Dr. Slim Cristina MD No Primary Care Phys ANTHONY Olvera Tissues: Sputum Procedures: Gen Path Consultation (on slides) Special Stain Group II Special Stain Group I Surgery Specimen Level IV AFB Stain (control) GMS Stain (control) Cytospin Fluid HEADER OPERATION: Not noted PRE-OP DIAGNOSIS: Pneumonia, hypoxia, COPD TISSUE SUBMITTED: Sputum for cytology DIAGNOSIS CYTOLOGY Sputum for cytology (smears, cytospin and cell block): Rare atypical epithelial cells are present. Negative for acid-fast bacilli and fungal organisms. See comment. AM:clara 11/05/2022 COMMENT AFB and GMS stains with matched controls were used in the evaluation of this case. This case was reviewed and diagnosis discussed with Dr. Brown and Dr. Ontiveros on 11/05/2022. CYTOLOGY STUDY Slides are reviewed. CYTOLOGY GROSS Received is 5 ml of red mucoid cloudy fluid labeled with the patient's name and and designated per the requisition as sputum. Submitted for cytology preparation including cell block. / clara 11/04/2022 TC: CPT: 64296, 23205 x2, [id number]
--- NOTE | 2022-11-04 01:28 | PN.HOSP_ITS ---
Reason for Visit Reason for Visit: Diagnoses Hypokalemia (10/31/22) Essential (primary) hypertension (10/31/22) Pneumonia, unspecified organism (10/31/22) Chronic obstructive pulmonary disease with (acute) exacerbation (10/31/22) Acute respiratory failure with hypoxia (10/31/22) Gastro-esophageal reflux disease without esophagitis (10/31/22) Hypoxemia (10/31/22) Other nonspecific abnormal finding of lung field (10/31/22) Subjective Subjective Intubation Indication: Respiratory failure Consent was obtained from: Consent was not obtained at this was an emergent procedure. The patient was placed in the appropriate sniffing position. Preoxygenated by BiPAP which patient was originally on but he was pulling. The patient had continuous cardiac as well as pulse oximetry monitoring during the procedure. Procedure sedation was provided by the administration of etomidate and succinylcholine. GlideScope was then performed using a number 3.5 blade, which revealed a grade 1 view. A 7.5 mm endotracheal tube was visualized advancing between the cords to the level of 24 cm at the lip. The stylette was then removed and discarded. Tube placement was confirmed by fogging in the tube along with equal and bilateral breath sounds. Colorimetric change was visualized on the CO2 meter. The cuff was then inflated and the tube secured using a commercially available device. The patient's oxygen saturation after Ambu bag and was changed to BiPAP was dropping so the ET tube was pushed to 21 cm at the lip. Patient continued to decompensate. He was on propofol and fentanyl. He was given additional succinylcholine. Later patient was placed on on an Nimbex drip.. Case was discussed with yield engineer. Patient was reintub ated with a #7.0 ET. His x-ray obtained showed of volume shrinkage of right lung but revealed good ET positioning. Objective Data Objective Data Vital Signs: Vital Signs Temp Pulse Resp BP Pulse Ox O2 Del Method O2 Flow Rate 98.8 F 109 H 28 H 150/124 H 89 Bi-pap 60 11/04/22 00:30 11/04/22 00:30 11/04/22 00:30 11/04/22 00:30 11/04/22 00:30 11/04/22 00:30 11/03/22 23:45 FiO2 80 11/04/22 00:30 Oxygen Flow Rate (L/min) 60 Oxygen Delivery Method Bi-pap Weight: 72.4 kg Body Mass Index (BMI) 20.5 Intake & Output: Intake and Output for Last 24 Hours 11/02/22 11/03/22 11/04/22 23:59 23:59 23:59 Intake Total 1129.5 / 1129.5 495.75 / 495.75 Output Total 1100 / 1100 4275 / 4875 600 / 600 Balance 29.5 / 29.5 -3779.25 / -4379.25 -600 / -600 Lab / Micro Data 11/03/22 04:55 11/03/22 04:55 Labs: Laboratory Results - last 24 hr 11/03/22 04:55: WBC 24.0 H, RBC 5.01, Hgb 15.5, Hct 45.2, MCV 90.2, MCH 30.9, MCHC 34.3, RDW Std Deviation 46.6 H, RDW Coeff of Sonya 14.1, Plt Count 342, MPV 8.5, Immature Gran % (Auto) 0.700, Neut % (Auto) 91.2 H, Lymph % (Auto) 3.3 L, [place] % (Auto) 4.7, Eos % (Auto) 0.0, Baso % (Auto) 0.1, Absolute Neuts (auto) 21.8 H, Absolute Lymphs (auto) 0.79 L, Nucleated RBC % 0, Differential Comment SCANNED, Sodium 138, Potassium 3.9, Chloride 108 H, Carbon Dioxide 26.0, Anion Gap 4 L, BUN 23 H, Creatinine 0.96, Estim Creat Clear Calc 72.27, Est GFR (MDRD) Af Amer 100, Est GFR (MDRD) Non-Af 83, BUN/Creatinine Ratio 24.1 H, Glucose 161 H, Calcium 9.0, B-Natriuretic Peptide 56.7, Procalcitonin 0.06 Micro: Microbiology 10/31/22 21:20 Sputum, Expectorated/Coughed Gram Stain - Final 10/31/22 21:20 Sputum, Expectorated/Coughed Respiratory Culture - Final Presumptive C albicans 11/02/22 15:08 Mucosa - Nose Respiratory Panel (PCR) - Final 10/31/22 08:05 Blood Culture (Wb) - Right Forearm Blood Culture - Preliminary No growth in 48 hours. 10/31/22 07:50 Blood Culture (Wb) - Anticubital Left Blood Culture - Preliminary No growth in 48 hours. 10/31/22 14:45 Urine, Random Legionella Antigen - Final 10/31/22 14:45 Urine, Random Streptococcus pneumoniae Antigen (M - Final 10/31/22 06:25 Nasal Secretion SARS-CoV-2 & FLU Antigen (Rapid) - Final Radiography Diagnostic Testing: Radiology Impression Chest X-Ray 11/03/22 03:28 IMPRESSION: 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 Improving patchy airspace disease in the right mid to lower lung, consistent with improving pneumonia. Minimal haziness in the left mid to upper lung laterally where groundglass opacities were noted on the prior chest CT, and this may be due to additional pneumonia. Findings of pulmonary emphysema again noted. Stable volume loss on the right with shift of the mediastinal structures to the right. Electronically Signed: Keshav Boswell MD at 4:32 EDT , Chest X-Ray 11/03/22 11:50 IMPRESSION: Stable examination. Electronically Signed: John Maretl MD at 12:39 EDT ,
--- NOTE | 2022-11-04 02:07 | RAD_ITS ---
EXAM: XR Chest 1 View INDICATION: Male, 72 years old. Respiratory failure TECHNIQUE: Single AP view COMPARISON: 11/04/2022 at 0124 hours FINDINGS: DEVICES: Endotracheal tube tip projects approximately 8 cm above the nathen. Nasogastric tube extends below the diaphragm with the tip projecting over the lateral gastric fundus. LUNGS: Patchy airspace infiltration noted throughout the right lung which has worsened. Volume loss on the right with rightward mediastinal shift. No pleural effusion or pneumothorax.. MEDIASTINUM: Cardiac and mediastinal silhouettes are within normal limits. No central pulmonary vascular congestion. . SKELETAL STRUCTURES: No acute skeletal abnormality. UPPER ABDOMEN: Unremarkable RAD/Chest 1 View (Portable) IMPRESSION: 1. Appropriate positioning of supportive devices. 2. Diffuse infiltrates throughout the right lung with associated volume loss Electronically Signed: Rocael Evangelista MD at 2:26 EDT ,
[2022-11-04] MEDS: Albuterol 2.5 MG/3 ML VIAL.NEB. INHALATION (02:22)
[2022-11-04] MEDS: Ipratropium 0.5 MG/2.5 ML SOLUTION INHALATION ×3 (02:23→11:18)
[2022-11-04 02:52] LABS: Allen Test Positive; Base Excess 4 mmol/L (-2 to +2); Blood Gas Specimen Type ART; FI02 100; Mode AC; O2 Delivery Device Adult Vent; PEEP 20; PO2 35 mmHG (75-100); RR 20; SITE L Radial; SO2 52 % (95-99); Total Carbon Dioxide 35 mmol/L; Vt 400; pCO2 83.8 mmHg (35-45); pH 7.19 (7.35-7.45)
--- NOTE | 2022-11-04 03:04 | NURSING ---
After intubation at 0057 Dr. Estes left pt bedside. Pt continued to desaturate from the 70% to the 47% despite 100% fio2 and [address] Estes paged through the crusher loader operator and by text of situation [id number]- Dr. Estes at bedside. Dr. Brown called at home asking for recommendations. Dr. Brown recommended low TV and high peep due to mass in R trachea. Dr. Brown also recommended pulling ETT back to 21 @ the teeth. Dr. Brown okay with 100 Succs now and starting nimbex gtt. Dr. Brown and Dr. estes discussed pt over the phone. Hr 106 Spo2 59 Bp 89/77 0137- 100 succs 0145- ETT attempted to be pulled back to 21 @ the teeth. Tube dislodged. pt bagged to 84% 0149- pt reintubated with 7 ETT 24 @ the teeth with positive color change. R lung sounds diminished. Chest xray done. 0210- Nimbex gtt started. Spo2 60 %. and Ex both called multiple times with no answer. RN advocated for pt to be transferred to a different facillity, request denied by Dr. Estes
[2022-11-04 04:30] LABS: Absolute Lymphocyte Count 0.64 X10^3/uL (0.83-4.51); Absolute Neutrophil Count 20.4 X10^3/uL (2.0-7.7); Basophil# 0.04 X10^3/uL; Basophil% 0.2 % (0-1); Hematocrit 50.6 % (40-54); Hemoglobin 16.5 g/dL (13.0-16.5); Lymphocyte # 0.64 X10^3/ul (0.83-4.51); Lymphocyte % 2.8 % (19-41); Mean Corp Hgb Conc 32.6 g/dL (32-36); Mean Corpuscular Hgb 30.8 pg (27.0-32.0); Mean Corpuscular Volume 94.6 fL (80-94); Monocyte# 1.71 X10^3/uL; Monocyte% 7.5 % (0-10); NRBC Flagged by Analyzer 0 % (0-5); Neutrophil # 20.36 X10^3/uL (2.7-7.7); Neutrophil % 88.6 % (47-70); POSITIVE DIFFERENTIAL YES; Platelet Count 378 K/mm3 (150-450); RBC Distribution Width CV 14.2 % (11.6-14.6); RBC Distribution Width SD 49.1 fl (35.1-43.9); Red Blood Count 5.35 M/mm3 (4.6-6.2)
[2022-11-04 04:33] LABS: Differential Indicated SCAN CRITERIA MET
[2022-11-04] MEDS: Propofol 10MG/Ml 1,000 MG/100 ML Bottle 21.7 MG CONT INF ×2 (04:40→08:13)
[2022-11-04 04:58] LABS: Anion Gap 5 (5-15); BUN 33 mg/dL (7-18); Calcium,Total 8.7 mg/dL (8.5-10.1); Chloride 103 mmol/L (98-107); Creatinine, Serum 1.22 mg/dL (0.70-1.30); EST Glomerular Filtration Rate 62 mL/min (>60); Est Glom Filt Rate - Afr Amer 75 mL/min (>60); Estimated Creatinine Clearance 56.87 ml/min; Glucose 238 mg/dL (74-106); Magnesium 2.7 mg/dL (1.6-2.6); Phosphorus 7.6 mg/dL (2.5-4.9); Potassium 4.2 mmol/L (3.5-5.1); Sodium Level 139 mmol/L (136-145)
[2022-11-04 05:30] LABS: Differential Comment SCANNED
[2022-11-04] MEDS: Methylprednisolone Sod Succ 40 MG/ML VIAL IV (05:36)
[2022-11-04] MEDS: fentaNYL drip 100 ML 17.5 MCG CONT INF ×2 (05:56→11:39)
--- NOTE | 2022-11-04 06:42 | RAD_ITS ---
We are attempting to reach an attending provider to discuss findings. An addendum with communication details will be sent when the communication is complete. EXAM: XR CHEST, 1 VIEW CLINICAL INDICATION: concern for pneumo TECHNIQUE: Frontal view of the chest. COMPARISON: Previous chest radiograph of this date, 2:04 AM. FINDINGS: LUNGS AND PLEURAL SPACES: There is been interval development of abnormal lucency at the right mid to upper lung, extending to the apex, indicating a pneumothorax, an approximately 30% pneumothorax. There is no associated mediastinal shift to the left to indicate that the pneumothorax is under tension. The right lung is atelectatic. There is continued soft tissue mass effect at the right lung hilum with poor visualization of the right mainstem bronchus. Left lung is hyperinflated and is clear. HEART: Remains within normal limits. No pulmonary venous hypertension is noted. MEDIASTINUM: Stable mediastinal shift to the right due to right-sided volume loss. BONES: No acute osseous abnormality. OTHER: ET tube remains in place with its tip approximately 8 cm above the nathen. NG tube remains in place extending into the stomach with its tip projected within the gastric fundus, in satisfactory position. RAD/Chest 1 View (Portable) IMPRESSION: Interval development of a right-sided pneumothorax, an approximately 30% pneumothorax. Nonstandard communication protocol initiated. Electronically Signed: Keshav Boswell MD at 7:17 EDT ,
--- NOTE | 2022-11-04 07:02 | PCM.PN.BLA ---
Progress Note Asked by nursing staff to evaluate patient secondary to persistent hypoxia. Patient reportedly has had a complex medical history overnight and has persisted in hypoxia. Patient known to have a tracheal mass and had to be intubated secondary to hypoxia. No family was at the bedside. Did review case details with nursing. After physical exam, a chest x-ray was obtained showing a significant right pneumothorax. Discussed with Dr. Jack placed chest tube. Physical Exam Const Constitutional Narrative: Intubated and sedated. RASS -3. Good vent synchrony noted. Eyes PERRL and EOMs intact bilaterally Neck full ROM Neck Narrative: No crepitus noted Chest Chest Narrative: Decreased excursion of the right chest. Hyperresonant on the right. Resp Resp Narrative: Little to no air movement on the right. Patient currently on a PEEP of 8 with peak airway pressures of 29. Review of vent flow patterns do not suggest air trapping Cardio regular rate, regular rhythm, S1 normal heart sound and S2 normal heart sound Assessment & Plan Assessment/Plan (1) Pneumothorax, right: PLAN: Plan RECOMMENDATIONS: 1. Insert chest tube. Surgery consult placed 2. Contact family for update 3. Defer ongoing management to Dr. Brown IMPRESSIONS: 1. Right pneumothorax in the setting of acute hypoxic respiratory failure Unclear etiology. 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 Patient has had intubations overnight. Review of chest x-ray shows a significant right-sided pneumothorax. This does not appear to have tension characteristics on x-ray. Dr. Jack was in the intensive care unit at this time and was asked to place a chest tube on the right. Additional management of ongoing medical issues per Dr. Brown. Dr. Brown is aware and was at the bedside when I left. TIME: 35 minutes critical care time spent addressing patient's hypoxia, right pneumothorax, collaboration with surgery and the rest of the care team. Procedures Hospitalists Procedures: [id number] Critial Care 1st Hr
--- NOTE | 2022-11-04 07:07 | RAD_ITS ---
STUDY: X-RAY CHEST REASON FOR EXAM: Male, 72 years old. Chest tube placement. TECHNIQUE: Single AP portable view of the chest. COMPARISON: Comparison is made with prior study done earlier in the day at 6:52 AM. FINDINGS: An endotracheal tube is in situ. The tip is at 4.1 sinus proximal to nathen. An orogastric tube is seen with the tip in the body of the stomach. A right-sided small caliber chest tube has been placed with the tip in the upper mid chest. Stable appearance of the right pneumothorax. This collapse of the right lung with shift of the heart and mediastinum towards the right side of the midline. There is no demonstrated pleural abnormality. RAD/Chest 1 View (Portable) IMPRESSION: Stable right-sided pneumothorax with the collapse of the right lung and shift of the mediastinum towards the right side. A small caliber right-sided chest tube has been placed. Electronically Signed: John Martel MD at 8:29 EDT ,
--- NOTE | 2022-11-04 07:08 | NURSING ---
Concern for pneumo. Chest xray obatined, Positive for pneumo. Dr. Sotomayor at bedside and place R pigtail chest tube [id number]
--- NOTE | 2022-11-04 07:45 | RAD_ITS ---
STUDY: X-RAY CHEST REASON FOR EXAM: Male, 72 years old. Chest tube TECHNIQUE: Single AP portable view of the chest. COMPARISON: Comparison is made with prior study done earlier today at 7:14 AM. FINDINGS: Stable position of the endotracheal tube and nasogastric tube. Once again, a small caliber chest tube is seen in the right hemithorax. Since prior study, there is been mild improvement of the right pneumothorax. RAD/Chest 1 View (Portable) IMPRESSION: Slight decrease in size of the right pneumothorax. Electronically Signed: John Martel MD at 8:30 EDT ,
--- NOTE | 2022-11-04 08:02 | CPS ---
ABG drawn by Dr Brown from Right Femoral.
--- NOTE | 2022-11-04 08:04 | CPS ---
Physically gave results to Dr Brown.
[2022-11-04 08:10] LABS: Base Excess 3 mmol/L (-2 to +2); Blood Gas Specimen Type ART; FI02 100; Mode AC; O2 Delivery Device Adult Vent; PEEP 8; PO2 35 mmHG (75-100); RR 24; SITE R Fem; SO2 59 % (95-99); Total Carbon Dioxide 32 mmol/L; Vt 400; pCO2 61.8 mmHg (35-45); pH 7.29 (7.35-7.45)
--- NOTE | 2022-11-04 08:13 | PN.CC_ITS ---
Assessment & Plan Assessment/Plan (1) Mass of right lung: PLAN: - Patient respiratory status deteriorated overnight, requiring intubatio n. He had refractory hypoxemia, likely due to postobstructive pneumonia and incomplete expansion of the right lung after intubation - Patient developed a right-sided pneumothorax after intubation, likely related to barotrauma, COPD, and lung cancer. This was quickly recognized and small bore chest tube placed with incomplete right lung reexpansion. The left lung was unchanged radiographically. - The chest tube is functioning well, with good fluctuation with ventilated breaths and with a small air leak at 20 cm. Increased suction pressure to 40cm only served to cause further rightward deviation of the mediastinal structures and did not reexpand the lung, therefore the pressure was decreased again to 25 cm, with a small air leak and good fluctuation. Throughout the suction pressure titration, O2 saturations did not rise above the 60s. Case discussed with Jayro Castro Calabretta and Morteza. Prognosis is grim. Patient is highly likely to have at least stage 3b lung canc er, with likely RUL and LLL metastases. Pathologic diagnosis has been delayed due to patient's respiratory status being too unstable to undergo bronchoscopy. Awaiting results of sputum cytology. My discussions with the patient up to yesterday indicated that he wanted all interventions needed to diagnose the tumor, including intubation, ventilation. Additional discussions were conducted with the patient overnight, resulting in continuation of full code designation. (2) COPD exacerbation: PLAN: Continue bronchodilators every 4 hours and IV steroids No evidence of infection, patient continues on Zosyn (3) GERD (gastroesophageal reflux disease): PLAN: Continue pantoprazole (4) Hypertension: PLAN: Not problematic currently, patient is hypotensive on Levophed (5) Postobstructive pneumonia: PLAN: Due to tumor; although white count is elevated likely due to high-dose steroids, his procalcitonin is normal. Infection is unlikely, cultures are negative except for candidal sputum colonization. He has no significant endotracheal secretions. - Continue current antibiotics, consider de-escalation if he stabilizes clinically. (6) Acute respiratory failure with hypoxemia: PLAN: As above, due to a combination of COPD and this current smoker of at least 30 pack years, (new diagnosis, unstaged) and lung cancer with postobstructive pneumonia due to tumor atelectasis. CT scan shows tumor in the trachea and occluding tumor right mainstem bronchus. - Titrate ventilator settings as appropriate - Bicarbonate - Follow chest x-rays - Monitor chest tube suction fluctuation function and secretions. Currently there are no secretions from the chest tube. PLAN: Plan As above. Very guarded prognosis. The family has been asked by his ex-, who lives in [place] and is the only family member who could be contacted, to reach the family and asked them all to come in to see the patient. Subjective Subjective Patient sedated and lysed on the ventilator Overnight, patient had worsening respiratory status, not tolerating BiPAP, frequently removing it with desaturation to the 70s, Airvo was replaced at 100%, but after a period of time he was desaturating on Airvo and the decision was made by covering hospitalist Dr. Berumen to intubate him emergently. We discussed the case together multiple times during the night. After intubation, his O2 saturation did not improve and has remained in the 60s% since around 5 AM. His initial settings were reviewed with the hospitalist. He was on ~20 peep with peak pressures 40s for an uncertain time after intubation last night due to persistent hypoxemia. Chest x-ray after intubation showed persistent right lung atelectasis and adequate tube placement. He was pressor dependent through the night. Morning chest x-ray showed a right pneumothorax. This was reviewed by Dr. Pro who consulted Dr Jack and placed a R chest tube. Evaluation of the chest tube by Dr Jack and myself showed good function, intermittent air leak. Post chest tube placement showed non expansion of the right lung, likely due to mechanical atelectasis related to tumor. Upward titration of the suction pressure resulted in no improvement in oxygenation and mildly increased air leak. Pressure was returned to 25 cm. Current ventilator settings were reviewed at 400 vt x PEEP 8 x 100% FiO2 times rate of 24. There was no auto PEEP, the PIP was 30. Minute ventilation was between 10 and 11. ABG on the settings was 7.29 PCO2 62 PO2 34 on a femoral stick I did personally with pulsatile blood return. Vital signs were stable on Levophed at 7 mcg, fentanyl at 125, propofol at 20, bis of 42, and Nimbex drip titrated to 1 out of 4 [id number]. He is currently too unstable due to persistent hypoxemia for either bronchoscopy or CT scan of the chest. The and ex- were called at least 4 times each overnight by Dr. Berumen and the nursing staff, and twice by myself this morning. I reached Yamila, his ex-, and since she is his ex- and not next of kin, she was asked to try to contact his immediate family to call us as soon as possible, and that the family was encouraged to come to the hospital since he was doing very poorly. His prognosis is currently very grim. Objective Data Objective Data Vital Signs: Vital Signs Temp Pulse Resp BP Pulse Ox O2 Del Method O2 Flow Rate 96.6 F L 91 24 H 83/70 L 71 Mechanical Ventilator 60 11/04/22 06:00 11/04/22 06:51 11/04/22 06:51 11/04/22 06:00 11/04/22 06:51 11/04/22 06:00 11/04/22 00:00 FiO2 100 11/04/22 06:00 Oxygen Flow Rate (L/min) 60 Oxygen Delivery Method Mechanical Ventilator Weight: 153 lb 10.595 oz Body Mass Index (BMI) 19.7 Intake & Output: Intake and Output for Last 24 Hours 11/02/22 11/03/22 11/04/22 23:59 23:59 23:59 Intake Total 1129.5 / 1129.5 495.75 / 495.75 534.14 / 534.14 Output Total 1100 / 1100 4275 / 4875 775 / 775 Balance 29.5 / 29.5 -3779.25 / -4379.25 -240.86 / -240.86 Lab / Micro Data Attestation: I reviewed the patient's lab results. 11/04/22 04:10 11/04/22 04:10 Labs: Laboratory Results - last 24 hr 11/03/22 04:55: Procalcitonin 0.06 11/04/22 04:10: WBC 23.0 H, RBC 5.35, Hgb 16.5, Hct 50.6, MCV 94.6 H, MCH 30.8, MCHC 32.6, RDW Std Deviation 49.1 H, RDW Coeff of Sonya 14.2, Plt Count 378, MPV 9.0, Immature Gran % (Auto) 0.900, Neut % (Auto) 88.6 H, Lymph % (Auto) 2.8 L, [place] % (Auto) 7.5, Eos % (Auto) 0.0, Baso % (Auto) 0.2, Absolute Neuts (auto) 20.4 H, Absolute Lymphs (auto) 0.64 L, Nucleated RBC % 0, Differential Comment SCANNED, Diff Path Review May foll, Sodium 139, Potassium 4.2, Chloride 103, Carbon Dioxide 31.0, Anion Gap 5, BUN 33 H, Creatinine 1.22, Estim Creat Clear Calc 56.87, Est GFR (MDRD) Af Amer 75, Est GFR (MDRD) Non-Af 62, BUN/Creatinine Ratio 27.0 H, Glucose 238 H, Calcium 8.7, Phosphorus 7.6 H, Magnesium 2.7 H Note that WBC is on high-dose steroids, procalcitonin is normal. Hyperphosphatemia noted. Micro: Microbiology 10/31/22 21:20 Sputum, Expectorated/Coughed Gram Stain - Final 10/31/22 21:20 Sputum, Expectorated/Coughed Respiratory Culture - Final Presumptive C albicans 11/02/22 15:08 Mucosa - Nose Respiratory Panel (PCR) - Final 10/31/22 08:05 Blood Culture (Wb) - Right Forearm Blood Culture - Preliminary No growth in 48 hours. 10/31/22 07:50 Blood Culture (Wb) - Anticubital Left Blood Culture - Preliminary No growth in 48 hours. 10/31/22 14:45 Urine, Random Legionella Antigen - Final 10/31/22 14:45 Urine, Random Streptococcus pneumoniae Antigen (M - Final 10/31/22 06:25 Nasal Secretion SARS-CoV-2 & FLU Antigen (Rapid) - Final Results noted. C albicans is likely a contaminant in a patient on antibiotics. ABG Data ABG results: ABG 11/04/22 11/04/22 02:47 08:00 Specimen Type ART ART Sample Site L Radial R Fem pH 7.19 L* 7.29 L Bicarbonate Actual 32.0 H 30.0 H Total CO2 35 32 Base Excess 4 H 3 H O2 Saturation 52 L 59 L O2 % 100 100 ABG pCO2 83.8 H* 61.8 H ABG pO2 35 L* 35 L* Berhane Test Positive N/A Respiration Rate 20 24 O2 Delivery Device Adult Vent Adult Vent Vent Mode AC AC Tidal Volume 400 400 POC PEEP 20 8 Crit Call To/Read Back Yes Yes Blood Gas Notified Whom Agyepong Baggott Radiography Diagnostic Testing: Radiology Impression Chest X-Ray 11/03/22 11:50 IMPRESSION: Stable examination. Electronically Signed: John Martel MD at 12:39 EDT , Chest X-Ray 11/04/22 01:00 IMPRESSION: 1. Endotracheal tube tip 10 cm above the nathen and nasogastric tube tip projecting over the antrum. 2. Diffuse right-sided infiltrate Electronically Signed: Rocael Evangelista MD at 2:29 EDT , Chest X-Ray 11/04/22 02:07 IMPRESSION: 1. Appropriate positioning of supportive devices. 2. Diffuse infiltrates throughout the right lung with associated volume loss Electronically Signed: Rocael Evangelista MD at 2:26 EDT , Chest X-Ray 11/04/22 06:42 IMPRESSION: Interval development of a right-sided pneumothorax, an approximately 30% pneumothorax. Nonstandard communication protocol initiated. Electronically Signed: Keshav Boswell MD at 7:17 EDT , ADDENDUM: 11/04/22726 IMPRESSION: Interval development of a right-sided pneumothorax, an approximately 30% pneumothorax. Nonstandard communication protocol initiated. N.B. : The above Results were Read Back by Keshav Boswell MD to Clarice Patel RN, and understanding confirmed on 11/04/2022 07:20:31 (ET). Electronically Signed: Keshav Boswell MD at 7:17 EDT , Physical Exam Narrative Sedated, paralyzed patient on mechanical ventilation, no acute distress. HEENT endotracheal tube is currently 24 cm at the upper teeth, no secretions. 7.0. Extraocular is paralyzed pupils are equal. Mucous membranes dry. Chest has air movement bilaterally, no wheezes rales or rhonchi. Air on the right may be at least partially transmitted from the left. No squeaks or other abnormal airway sounds was heard yesterday on exam. Heart tachycardic S1-S2 with no murmurs Abdomen is slender soft nontender, no organomegaly Extremities have clubbing, no cyanosis, no edema. Radial pulses are decreased. (On Levophed). No peripheral necrosis or hypoperfusion noted on Levophed. : Camarena catheter draining small amounts of clear yellow urine, approximately 10 cc/h. Neurologic: Sedated and paralyzed pharmacologically. Skin is cool and dry. Charges/Coding Procedures Hospitalists Procedures: [id number] Critial Care 1st Hr
--- NOTE | 2022-11-04 08:33 | CON.PCM.SX_ITS ---
Assessment & Plan Assessment/Plan (1) Pneumothorax, right: PLAN: The patient had a hypoxia and hypotension with a new right pneumothorax. Patient is intubated. I performed a percutaneous chest tube placement at the bedside emergently. Patient tolerated the procedure but the lung does not seem to be fully inflating. I discussed with Dr. 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 I did offer to place a full-size chest tube but at this time the stress test technician believes this will be suf ficient. Camden Jack MD Pager: [facility] [address] [place] [address], [address] [place] [address] Office: HPI Consult Data Date of Consult: 11/04/22 HPI Narrative HPI Narrative: SADIE EATON, is a 72 M with collapsed right lung. I was consulted emergently for a chest tube after chest x-ray showed right pneumothorax [facility] Medical History (Updated 11/04/22 @ 07:[address] Diego Pro MD) Acute respiratory failure with hypoxemia COPD exacerbation Former smoker GERD (gastroesophageal reflux disease) Hypertension Mass of right lung Postobstructive pneumonia Home Medications amlodipine 10 mg tablet 10 mg PO DAILY high blood pressure 10/31/22 [History L ast Taken 10/31/22] pantoprazole 20 mg tablet,delayed release 20 mg PO DAILY 10/31/22 [History Last Taken Unknown] prednisone 20 mg tablet 20 mg PO DAILY breathing 10/31/22 [History Last Taken 10/30/22] Allergy/AdvReac Type Severity Reaction Status Date / Time No Known Allergies Allergy Verified 10/31/22 07:42 Surgical History History of tonsillectomy Social History Smoking Status: Former smoker ROS Review of Systems ROS Unobtainable: due to endotracheal tube Lab / Micro Data 11/04/22 04:10 11/04/22 04:10 Labs: Laboratory Results - last 24 hr 11/03/22 04:55: Procalcitonin 0.06 11/04/22 04:10: WBC 23.0 H, RBC 5.35, Hgb 16.5, Hct 50.6, MCV 94.6 H, MCH 30.8, MCHC 32.6, RDW Std Deviation 49.1 H, RDW Coeff of Sonya 14.2, Plt Count 378, MPV 9.0, Immature Gran % (Auto) 0.900, Neut % (Auto) 88.6 H, Lymph % (Auto) 2.8 L, [place] % (Auto) 7.5, Eos % (Auto) 0.0, Baso % (Auto) 0.2, Absolute Neuts (auto) 20.4 H, Absolute Lymphs (auto) 0.64 L, Nucleated RBC % 0, Differential Comment SCANNED, Diff Path Review August, Sodium 139, Potassium 4.2, Chloride 103, Carbon Dioxide 31.0, Anion Gap 5, BUN 33 H, Creatinine 1.22, Estim Creat Clear Calc 56.87, Est GFR (MDRD) Af Amer 75, Est GFR (MDRD) Non-Af 62, BUN/Creatinine Ratio 27.0 H, Glucose 238 H, Calcium 8.7, Phosphorus 7.6 H, Magnesium 2.7 H Micro: Microbiology 10/31/22 21:20 Sputum, Expectorated/Coughed Gram Stain - Final 10/31/22 21:20 Sputum, Expectorated/Coughed Respiratory Culture - Final Presumptive C albicans ABG Data ABG results: ABG 11/04/22 11/04/22 02:47 08:00 Specimen Type ART ART Sample Site L Radial R Fem pH 7.19 L* 7.29 L Bicarbonate Actual 32.0 H 30.0 H Total CO2 35 32 Base Excess 4 H 3 H O2 Saturation 52 L 59 L O2 % 100 100 ABG pCO2 83.8 H* 61.8 H ABG pO2 35 L* 35 L* Berhane Test Positive N/A Respiration Rate 20 24 O2 Delivery Device Adult Vent Adult Vent Vent Mode AC AC Tidal Volume 400 400 POC PEEP 20 8 Crit Call To/Read Back Yes Yes Blood Gas Notified Whom Agyepong baggor Radiology Impression Chest X-Ray 11/03/22 11:50 IMPRESSION: Stable examination. Electronically Signed: John Martel MD at 12:39 EDT , Chest X-Ray 11/04/22 01:00 IMPRESSION: 1. Endotracheal tube tip 10 cm above the nathen and nasogastric tube tip projecting over the antrum. 2. Diffuse right-sided infiltrate Electronically Signed: Rocael Evangelista MD at 2:29 EDT , Chest X-Ray 11/04/22 02:07 IMPRESSION: 1. Appropriate positioning of supportive devices. 2. Diffuse infiltrates throughout the right lung with associated volume loss Electronically Signed: Rocael Evangelista MD at 2:26 EDT , Chest X-Ray 11/04/22 06:42 IMPRESSION: Interval development of a right-sided pneumothorax, an approximately 30% pneumothorax. Nonstandard communication protocol initiated. Electronically Signed: Keshav Boswell MD at 7:17 EDT , ADDENDUM: 11/04/22726 IMPRESSION: Interval development of a right-sided pneumothorax, an approximately 30% pneumothorax. Nonstandard communication protocol initiated. N.B. : The above Results were Read Back by Keshav Boswell MD to Clarice Patel RN, and understanding confirmed on 11/04/2022 07:20:31 (ET). Electronically Signed: Keshav Boswell MD at 7:17 EDT , Chest X-Ray 11/04/22 07:07 IMPRESSION: Stable right-sided pneumothorax with the collapse of the right lung and shift of the mediastinum towards the right side. A small caliber right-sided chest tube has been placed. Electronically Signed: John Martel MD at 8:29 EDT , Chest X-Ray 11/04/22 07:45 IMPRESSION: Slight decrease in size of the right pneumothorax. Electronically Signed: John Martel MD at 8:30 EDT ,
--- NOTE | 2022-11-04 08:35 | PCM.OPRPT ---
Report of Operation Date of Procedure: 11/04/22 Pre-Operative Diagnosis: Right pneumothorax Post-Operative Diagnosis: Right pneumothorax Surgery/Procedure Performed:: Percutaneous right chest tube placement Description of Procedure: Patient was hypotensive and hypoxic and so emergent chest tube placement was performed. I did not have time to call for consent to the patient's ex- and they were unable to contact her overnight. I prepped the right chest in the normal sterile fashion. Small area of skin was injected with local anesthetic and a small gabriela was made with a scalpel. The percutaneous needle was placed over the rib and into the pleural space until air was aspirated. The catheter was run over the needle into the chest and the needle was removed. The catheter was placed to suction and there was air removed. The catheter was then sutured to the skin using 3-0 silk suture. Bandages were applied and the patient was placed to 40 of suction. Chest x-ray will be obtained.
[2022-11-04 08:45] LABS: CPK Total, Creatine Kinase 165 U/L (39-308); Triglycerides 113 mg/dL
--- NOTE | 2022-11-04 09:26 | CPS ---
Will send sputum today and tomorrow for cytology per Dr Brown. was not able to enter this into the order.
[2022-11-04] MEDS: Chlorhexidine 15 ML PO (09:48)
[2022-11-04] MEDS: Sodium Bicarbonate 8.4% 50 ML Syringe 50 MEQ IV (09:48)
[2022-11-04 09:49] LABS: Pathology Specimen Additional SEE PATHOLOGY REPORT
[2022-11-04] MEDS: 0.9% Saline Lock 10 ML Syringe IV (09:51)
[2022-11-04 09:56] LABS: Base Excess 4 mmol/L (-2 to +2); Bicarbonate 30.4 mmol/L (22-26); Blood Gas Specimen Type ART; FI02 100; Mode AC; O2 Delivery Device Adult Vent; PEEP 10; PO2 32 mmHG (75-100); RR 28; SITE R Fem; SO2 53 % (95-99); Total Carbon Dioxide 32 mmol/L; Vt 400; pCO2 62.2 mmHg (35-45)
--- NOTE | 2022-11-04 10:03 | CPS ---
ABG results sent to Dr Brown on [facility].
--- NOTE | 2022-11-04 10:04 | CASEMGMT ---
Social Work SW attended ICU rounds. Medical staff has been unable to contact pt to provide update. No HCPOA on file. Pt is , therefore Laverne Wade is legal decision maker. Correct Phone number [phone]. Phone call placed to Laverne who answered phone and pt's son Juno Wade ([phone]) was present and on speaker phone with Laverne. SW requested they remain by phone and medical staff would be calling them shortly. SW provided contact information to Dr. Rojsa and bedside nurse. Demographic sheet updated. DINESH Esquivel
--- NOTE | 2022-11-04 10:11 | CPS ---
Per Dr Brown during ICU rounds, send sputum to Cytology today and again tomorrow. RT suctioned pt and sent sputum to lab.
--- NOTE | 2022-11-04 11:27 | CPS ---
Addendum entered and electronically signed by Kathya Swan RRT 11/04/22 11:51: Correction, RR had been changed from 28 to 25. RN clarified that Dr had made changes. Addendum entered and electronically signed by Kathya Swan RRT 11/04/22 11:34: RT locked vent screen as a precaution. Original Note: RT came to do Vent check, RR had been changed to 25 from 24, I-time .8 from .9, and peep from 10 to 8. RT will contact Dr Brown to clarify if she made these changes.
--- NOTE | 2022-11-04 12:20 | PCM.PN.BLA ---
Progress Note Goals of care discussion: Transition to comfort care. Multiple family members arrived at bedside this morning at the request of the staff due to patient's marked deterioration overnight. The family was brought up-to-date with the patient's clinical situation, which I summarized as worsening respiratory failure with refractory hypoxemia due to tumor completely occluding the right lung and very limited reserve due to baseline probable severe COPD. They were told that despite the effort of multiple doctors overnight in the ICU, including intubation, life support with 100% oxygen and high pressure, and a chest tube to reexpand the lung, that nothing was working, we are only able to keep his oxygen saturation in the 60s% at most, even on maximal support. They were told that the prolonged low oxygen level was likely to result in severe damage to other organs including his brain. They were told that he has malignancy very likely, but we are unable to make a firm diagnosis because he was too sick to undergo biopsy procedure, and that he would not be able to undergo any cancer treatment in the his current very ill state since he would be too weak to withstand it. They were told that he is comfortable, sedated, and his muscles relaxed with a paralytic agent to minimize his oxygen demand. There were given opportunities to ask questions, they were answered to the best of my ability. After the family had some time with the patient and with each other, his son Juno and Natasha called me about 30 minutes ago (~12pm) to state that the family consensus is that they understand there is little hope, he would not want to be kept alive like that, and she requested that life support be withdrawn and comfort care instituted. I spoke with her at length to ensure she knew that that would likely result in his in a very short time. Both she and her son Juno understood that and stated other family members did as well. The consensus was that life support should be withdrawn, and allow a natural . We have discontinued his paralytic, and after about 30 minutes with return of [id number], we will discontinue his sedation to do an assessment and then retitrate him for comfort. When we are sure he is comfortable and not paralyzed, his life support will be discontinued and he will move to comfort care. Additional critical care time: 30 minutes, 992 9 2 Assessment & Plan Assessment/Plan (1) Acute respiratory failure with hypoxemia: (2) COPD exacerbation: (3) Postobstructive pneumonia: (4) Mass of right lung: (5) Pneumothorax, right: Procedures Hospitalists Procedures: 91281 Critial Care Addl 30 Min
[2022-11-04] MEDS: Morphine 2 MG/ML Syringe IV (13:24)
[2022-11-04] MEDS: LORazepam 2 MG/ML Syringe IV (13:24)
--- NOTE | 2022-11-04 13:35 | PCM.PN.BLA ---
Progress Note Patient and family seen at bedside, reviewed patient comfort and assured paralysis was worn off. Comfort care medications ordered. Patient observed to be breathing over vent and moving hands, not agitated or uncomfortable. Pastoral care is available in unit, and visited with family. Terminal extubation done at 13:25 PM. Family is re-gathering at bedside.
--- NOTE | 2022-11-04 14:01 | NURSING ---
Patient terminally extubated at 1325, comfort meds given. Family at bedside. Perl Developer Ray at bedside.
--- NOTE | 2022-11-04 15:47 | CHAPLAIN ---
Type of Pastoral Visit _x__ Initial Visit ___ Follow-up Visit ___ On-call Visit ___ General Patient Visit ___ Spiritual Assessment ___ Family Conference ___ Bereavement ___ Rapid Response ___ Code Blue ___ Other (describe below) Pastoral Care Referral From ___ Patient _x__ Family ___ Nurse ___ Physician ___ Marketing Consultant ___ Asbestos Abatement Technician ___ Other (describe below) Sacrament/Intervention _x__ Active listening ___ Anointing ___ Yazdanism _x__ Bereavement ___ Communion ___ Irene exploration ___ _x__ Life review _x__ Prayer ___ Reconciliation ___ Sacrament of Sick _x__ Supportive presence ___ Wedding ___ Other (describe below) Pastoral Comments family of patient requested a visit with possibility of prayer support as patient remains intubated; many family members have gathered in the room; time given to be present, ask about patient and his preferences, give a prayer as requested by family; later a second visit was requested as family as decided to remove breathing tube; met with family members again and offered support and time to talk about the patient and to express emotions; family members encouraged to be near, speak to, and talk about their relationship to patient; family given permission to be as near or far from room as they could be comfortable; this waste salvager gave a prayer blanket and set up the grief cart for support of family; prayer and scripture given; pt is extubated and family is escorted back into room by this waste salvager; remained with patient and family for a time as patient continues to hold his own; remained in the area to be available as needed
--- NOTE | 2022-11-04 17:34 | PCM.PN.HOSP ---
Reason for Visit Reason for Visit: Shortness of breath Subjective Subjective Overnight events reviewed. Overnight patient decompensated with regards to oxygenation and required intubation. Since intubation there was persistent issues with hypoxia and pneumothorax was detected on chest x-ray. Chest tube was placed by general surgery this morning but unfortunately he remained hypoxic. The sales engagement executive/method consultant had extensive discussion with family and this afternoon they elected to terminally extubate. Patient remains hypoxic on 2 L nasal cannula. Comfort medications were ordered and available if needed. Family is at the bedside. Objective Data Objective Data Vital Signs: Vital Signs Temp Pulse Resp BP Pulse Ox O2 Del Method O2 Flow Rate 98.9 F 89 24 H 117/86 H 81 Nasal Cannula 2 11/04/22 12:00 11/04/22 13:25 11/04/22 13:25 11/04/22 13:00 11/04/22 13:25 11/04/22 13:25 11/04/22 13:25 FiO2 100 11/04/22 13:00 Oxygen Flow Rate (L/min) 2 Oxygen Delivery Method Nasal Cannula Weight: 69.7 kg Body Mass Index (BMI) 19.7 Intake & Output: Intake and Output for Last 24 Hours 11/02/22 11/03/22 11/04/22 23:59 23:59 23:59 Intake Total 1129.5 / 1129.5 495.75 / 495.75 1228.38 / 1228.38 Output Total 1100 / 1100 4275 / 4875 775 / 775 Balance 29.5 / 29.5 -3779.25 / -4379.25 453.38 / 453.38 Lab / Micro Data 11/04/22 04:10 11/04/22 04:10 Labs: Laboratory Results - last 24 hr 11/04/22 04:10: WBC 23.0 H, RBC 5.35, Hgb 16.5, Hct 50.6, MCV 94.6 H, MCH 30.8, MCHC 32.6, RDW Std Deviation 49.1 H, RDW Coeff of Sonya 14.2, Plt Count 378, MPV 9.0, Immature Gran % (Auto) 0.900, Neut % (Auto) 88.6 H, Lymph % (Auto) 2.8 L, [place] % (Auto) 7.5, Eos % (Auto) 0.0, Baso % (Auto) 0.2, Absolute Neuts (auto) 20.4 H, Absolute Lymphs (auto) 0.64 L, Nucleated RBC % 0, Differential Comment SCANNED, Diff Path Review August, Sodium 139, Potassium 4.2, Chloride 103, Carbon Dioxide 31.0, Anion Gap 5, BUN 33 H, Creatinine 1.22, Estim Creat Clear Calc 56.87, Est GFR (MDRD) Af Amer 75, Est GFR (MDRD) Non-Af 62, BUN/Creatinine Ratio 27.0 H, Glucose 238 H, Calcium 8.7, Phosphorus 7.6 H, Magnesium 2.7 H, Total Creatine Kinase 165, Triglycerides 113 Micro: Microbiology 11/04/22 01:20 Sputum, Induced/Lukens Gram Stain - Final 10/31/22 21:20 Sputum, Expectorated/Coughed Gram Stain - Final 10/31/22 21:20 Sputum, Expectorated/Coughed Respiratory Culture - Final Presumptive C albicans 11/02/22 15:08 Mucosa - Nose Respiratory Panel (PCR) - Final 10/31/22 08:05 Blood Culture (Wb) - Right Forearm Blood Culture - Preliminary No growth in 48 hours. 10/31/22 07:50 Blood Culture (Wb) - Anticubital Left Blood Culture - Preliminary No growth in 48 hours. 10/31/22 14:45 Urine, Random Legionella Antigen - Final 10/31/22 14:45 Urine, Random Streptococcus pneumoniae Antigen (M - Final 10/31/22 06:25 Nasal Secretion SARS-CoV-2 & FLU Antigen (Rapid) - Final ABG Data ABG results: ABG 11/04/22 11/04/22 11/04/22 02:47 08:00 09:52 Specimen Type ART ART ART Sample Site L Radial R Fem R Fem pH 7.19 L* 7.29 L 7.30 L Bicarbonate Actual 32.0 H 30.0 H 30.4 H Total CO2 35 32 32 Base Excess 4 H 3 H 4 H O2 Saturation 52 L 59 L 53 L O2 % 100 100 100 ABG pCO2 83.8 H* 61.8 H 62.2 H ABG pO2 35 L* 35 L* 32 L* Berhane Test Positive N/A Respiration Rate 20 24 28 O2 Delivery Device Adult Vent Adult Vent Adult Vent Vent Mode AC AC AC Tidal Volume 400 400 400 POC PEEP 20 8 10 Crit Call To/Read Back Yes Yes Yes Blood Gas Notified Whom Agyepong baggor baggott Radiography Diagnostic Testing: Radiology Impression Chest X-Ray 11/04/22 01:00 IMPRESSION: 1. Endotracheal tube tip 10 cm above the nathen and nasogastric tube tip projecting over the antrum. 2. Diffuse right-sided infiltrate Electronically Signed: Rocael Evangelista MD at 2:29 EDT , Chest X-Ray 11/04/22 02:07 IMPRESSION: 1. Appropriate positioning of supportive devices. 2. Diffuse infiltrates throughout the right lung with associated volume loss Electronically Signed: Rocael Evangelista MD at 2:26 EDT , Chest X-Ray 11/04/22 06:42 IMPRESSION: Interval development of a right-sided pneumothorax, an approximately 30% pneumothorax. Nonstandard communication protocol initiated. Electronically Signed: Keshav Boswell MD at 7:17 EDT , ADDENDUM: 11/04/22726 IMPRESSION: Interval development of a right-sided pneumothorax, an approximately 30% pneumothorax. Nonstandard communication protocol initiated. N.B. : The above Results were Read Back by Keshav Boswell MD to Clarice Patel RN, and understanding confirmed on 11/04/2022 07:20:31 (ET). Electronically Signed: Keshav Boswell MD at 7:17 EDT , Chest X-Ray 11/04/22 07:07 IMPRESSION: Stable right-sided pneumothorax with the collapse of the right lung and shift of the mediastinum towards the right side. A small caliber right-sided chest tube has been placed. Electronically Signed: John Martel MD at 8:29 EDT , Chest X-Ray 11/04/22 07:45 IMPRESSION: Slight decrease in size of the right pneumothorax. Electronically Signed: John Martel MD at 8:30 EDT , Physical Exam Narrative At the time of my evaluation this morning the patient was still intubated Const no apparent distress; Negative for healthy appearing or well nourished Constitutional Narrative: Patient intubated and sedated and paralyzed, currently on a ventilator with left chest tube in place, currently appears comfortable HEENT HEENT Narrative: ET tube in place, OG in place Resp Resp Narrative: Significant decreased breath sounds on the right side despite chest tube placement, diminished on the left, currently no respiratory distress however patient is intubated Cardio regular rate, regular rhythm, S1 normal heart sound, S2 normal heart sound, no murmurs, no rub, no gallops and no clicks GI normal to inspection, nondistended, normoactive bowel sounds and soft to palpation GI Narrative: Scaphoid abdomen, soft Extremity no clubbing, cyanosis or edema Extremity Narrative: Decreased lean muscle mass, pedal pulses are 2+ Neuro Neuro Narrative: Patient paralyzed and sedated-unable to assess Assessment & Plan Assessment/Plan (1) Pneumothorax, right: (2) Acute respiratory failure with hypoxemia: (3) COPD exacerbation: (4) Postobstructive pneumonia: (5) Mass of right lung: (6) Acute respiratory failure with hypoxia and hypercapnia: PLAN: Plan Patient was terminally extubated this afternoon is poor prognosis was relayed to the family and they elected for comfort care measures to be pursued. Comfort medications are in place. The patient is hypoxic and appears comfortable after extubation but stable otherwise. We will continue to monitor throughout the night and if patient survives we will plan on hospice consultation within the next 24 hours. Continue comfort medication.-Appreciate pulmonary medicine/critical care input. Charges/Coding Visit Charges Inpatient E&M: 68462 [facility] L1
--- NOTE | 2022-11-04 19:02 | NURSING ---
Upon entering room to preform a patient check and clear out all previous IV medications pt begins grunting and moving in bed. Per family that has been bedside the entire afternoon this is the first that they have heard or seen the patient moving in bed. This nurse assisted pt to reposition for comfort in bed. About 20min later pt requested water and this nurse preformed pain assessment, pt denies any pain when asked. pt is now able to respond appropriately to questions and is oriented to person and place.
[2022-11-05] VITALS (16 sets, daily range): BP systolic 97–123; BP diastolic 70–92; PULSE 129–193; RESP 23–34; TEMP 37.5–38.5; O2SAT 70–84; BMI 19.5
--- NOTE | 2022-11-05 | IMM_PTH ---
PATIENT: SADIE EATON LOC: ICU U#:[id number] AGE/SX: 72/M ROOM: ICU04 RE10/31/[address]: Dr. Kaylie Dial DO : 1950 BED: 1 DIS: 11/06/2022 SPEC #: [id number] RECD: 11/09/22 11:41 STATUS: CARMINA REQ #: [id number] EVGENY: 11/05/22 00:[address]: Kaylie Dial DEPT: IMMUNOHISTOCHEMISTRY RECD BY: Jessica Acuna ENTERED: 11/09/22 11:43 SP TYPE: IMMUNO OTHR DR: MD Dr. Oleksandr Squires, MD Dr. Nate Stone Dr., DO Dr. Jez Kaufman, DO Dr. Slim Cristina MD No Primary Care Phys Mona Courtney, RECHARGER-C Tissues: THORACIC FLUID Procedures: NAPSIN A (add) Stone Ret (add) CK20 (add) CK5-6 (add) CK8 (add) MPO (add) TTF1 (add) P40 (add) CD68 (ADD) CK7 (initial) PHYSICIAN & [place] [id number] SPECIMEN INFORMATION: Tissue Source: Thoracentesis fluid Clinical Info: Not noted Specimen Number: [id number] CPT code: 77730, 27246 x 9 METHODOLOGY: Deparaffinized sections of prefer/formalin-fixed tissue or PAP/DQ stained slides are incubated with monoclonal/polyclonal antibodies/oligonucleotide probes. Localization is made via biotin free immunoperoxidase method. Appropriate controls are performed and reacted as expected. Results on target cell population are indicated in the following table: RESULTS: ANTIBODY / CLONE RESULT CK7 (OV-TL12/30) positive CK8 (96cscgF38) positive CK20 (KS20.8) negative MPO (polyclonal) positive CD68 (KP-1) positive TTF-1 (8G7G3/1) negative Napsin A (Rabbit Polyclonal) negative CALRET (polyclonal) positive CK5-6 (D5 & 1684) positive P40 (BC28) negative These tests were developed and their performance characteristics determined by [facility]. They may not have been cleared or approved by the U.S. Food and Drug Administration. The FDA has determined that such clearance or approval is not necessary. The above immunohistochemical/dualISH markers are ordered and reviewed by the Pathologist. INTERPRETATION: Thoracentesis fluid for cytology (cell block): No evidence of malignancy AM:hector 11/10/22
--- NOTE | 2022-11-05 08:49 | PN.CC_ITS ---
Assessment & Plan Assessment/Plan (1) Acute respiratory failure with hypoxia and hypercapnia: PLAN: Patient survive the night. He is hospice due to advanced lung cancer with refractory respiratory failure - Oncology consultation - Nasal oxygen without reintubation - Sputum samples - Await cytology (2) Pneumothorax, right: PLAN: No air leak today. - We will obtain chest x-ray to see if tube is medically ready to be discontinued, which is part of routine care to decrease the pain in his chest from the tube. (3) COPD exacerbation: PLAN: Continue bronchodilators for comfort. (4) Mass of right lung: PLAN: Oncology consultation, advanced lung cancer highly likely but no tissue diagnosis due to patient's tenuous respiratory status. (5) Postobstructive pneumonia: PLAN: No change (6) Hypertension: PLAN: Plan Further discussion and consultation to revisit the hospice decision, he currently remains DNR CC. Subjective Subjective Patient is awake, alert, oriented x3, verbal this morning, survived the night, remains with SPO2 of 74%. Other vitals are stable. He recalls having a rough night and remembers some of being placed on mechanical ventilation. He felt that the ventilator made his lungs burn. Denies headache, nausea, chest pain, dyspnea. He generally feels awful . Overnight: He survived and remains in hospice. The focus of care remains comfort care, al though we discussed and he would like to have oncology consult with him to have another specialist review his overall medical situation. With a baseline O2 saturation of 74% on O2, he is likely to continue to deteriorate, and is still unable to undergo any diagnostic or therapeutic intervention for his lung cancer. Right small bore chest tube remains in place, not painful. Functioning well, fluctuating, no air leak with cough at this time, on 20 cm wall suction. Total 20 cc drainage of serous fluid, in tubing nonpurulent. We will have to completely revisit the hospice decision since the patient is now awake alert and able to make decisions on his own. He was not sure when I spoke with him this morning if we should ever intubate him again, but will think about it. He remains DNR CC and a candidate for hospice for advanced lung cancer (clinical diagnosis) until more discussion ensues. We are awaiting sputum cytology results, and will send additional samples in hopes of making a diagnosis noninvasively. Objective Data Objective Data Vital Signs: Vital Signs Temp Pulse Resp BP Pulse Ox O2 Del Method O2 Flow Rate 99.7 F H 170 H 19 H 99/85 H 70 Nasal Cannula 2 11/04/22 20:00 11/04/22 20:00 11/04/22 20:00 11/04/22 20:00 11/04/22 20:00 11/05/22 08:17 11/05/22 08:17 FiO2 100 11/04/22 13:00 Oxygen Flow Rate (L/min) 2 Oxygen Delivery Method Nasal Cannula Weight: 152 lb 8.958 oz Body Mass Index (BMI) 19.5 Intake & Output: Intake and Output for Last 24 Hours 11/03/22 11/04/22 11/05/22 23:59 23:59 23:59 Intake Total 495.75 / 495.75 1228.38 / 1228.38 Output Total 4275 / 4875 1175 / 1175 200 / 200 Balance -3779.25 / -4379.25 53.38 / 53.38 -200 / -200 Lab / Micro Data Attestation: I reviewed the patient's lab results. 11/04/22 04:10 11/04/22 04:10 Micro: Microbiology 11/04/22 01:20 Sputum, Induced/Lukens Gram Stain - Final 10/31/22 21:20 Sputum, Expectorated/Coughed Gram Stain - Final 10/31/22 21:20 Sputum, Expectorated/Coughed Respiratory Culture - Final Presumptive C albicans 11/02/22 15:08 Mucosa - Nose Respiratory Panel (PCR) - Final 10/31/22 08:05 Blood Culture (Wb) - Right Forearm Blood Culture - Preliminary No growth in 48 hours. 10/31/22 07:50 Blood Culture (Wb) - Anticubital Left Blood Culture - Preliminary No growth in 48 hours. 10/31/22 14:45 Urine, Random Legionella Antigen - Final 10/31/22 14:45 Urine, Random Streptococcus pneumoniae Antigen (M - Final 10/31/22 06:25 Nasal Secretion SARS-CoV-2 & FLU Antigen (Rapid) - Final ABG Data ABG results: ABG 11/04/22 09:52 Specimen Type ART Sample Site R Fem pH 7.30 L Bicarbonate Actual 30.4 H Total CO2 32 Base Excess 4 H O2 Saturation 53 L O2 % 100 ABG pCO2 62.2 H ABG pO2 32 L* Respiration Rate 28 O2 Delivery Device Adult Vent Vent Mode AC Tidal Volume 400 POC PEEP 10 Crit Call To/Read Back Yes Blood Gas Notified Whom baggott Radiography Diagnostic Testing: none new Physical Exam Narrative Well-developed cachectic, appears fatigued, no respiratory distress. O2 saturation 74%. HEENT is unremarkable, nasal cannula in place, mucous membranes moist, swallowing adequate. Chest has bilateral rhonchi and a few wheezes. No aeration anterior lower right lung. Chest tube in place, good condition. Heart normal S1-S2 no murmurs rubs or gallops no arrhythmias Abdomen is soft nontender good bowel sounds. Extremities have clubbing but no cyanosis or edema. Neuro is nonfocal, alert and oriented x3 Skin is warm and dry Charges/Coding Visit Charges Inpatient E&M: 87092 Subs Hosp L3
--- NOTE | 2022-11-05 09:35 | RAD_ITS ---
STUDY: X-RAY CHEST REASON FOR EXAM: Male, 72 years old. Pneumothorax TECHNIQUE: Single AP portable view of the chest. COMPARISON: Comparison is made with prior study dated November 04, 2022 at 7:42 AM. FINDINGS: A small caliber chest tube is seen with the tip in the right lateral mid lung. The endotracheal tube and nasogastric tube have been removed. Since prior study, there has been mild degree of decreased right pneumothorax. Persistent consolidation and pleural effusion at the right lung base. Hyperinflation of the left lung. Normal size heart. Normal mediastinum and pavel. Normal visualized pulmonary arteries. There is atherosclerotic tortuosity of the aortic arch and descending thoracic aorta. There are diffuse degenerative changes of the visualized thoracic spine. Normal visualized ribs, clavicles, and shoulders. There is no demonstrated abnormality of the visualized soft tissue structures of the upper abdomen. RAD/Chest 1 View (Portable) IMPRESSION: Slight decrease in size of the right apical pneumothorax with persistent pleural parenchymal changes at the right lung base. The endotracheal tube and nasogastric tube have been removed. Electronically Signed: John Martel MD at 10:59 EDT ,
[2022-11-05 09:58] LABS: Pathologist Review Reviewed
--- NOTE | 2022-11-05 10:13 | PCM.PN.BLA ---
Progress Note Brief note: Patient met with social work today who explained hospice and other services available. The patient is not ready for hospice. He is therefore DNR [facility]. Social service prepared a power of health care attorney form for the family. Sputum cytology #1 and 2 should be ready by the end of today, sputum 3 for cytology ordered. Oncology was consulted but there is no one available to see him in the hospital today. We will restart his routine medications, diet. Prognosis is still very grim, O2 saturation remains 74% on nasal O2, he is tachycardic in the 170s to 180s. He is relatively comfortable. Jaryo Brown MD [facility]
--- NOTE | 2022-11-05 10:42 | CASEMGMT ---
Social Work SW attended ICU rounds. Pt has been extubated and is now alert and oriented x3. SW met with pt in pt room. Family in room was asked to leave. SW introduced self and discussed medical decision making process. BLEÉN explained that as long as pt is A&O and able, pt will make own medical decisions. SW inquired with pt who he would want to make medical decisions in the event he is not able. Pt stating his preferred first medical decision maker is his Laverne aWde. First alernate is his son Juno Wade. Pt declining to name a second alternate. Pt agreeable to complete a HCPOA indicating these wishes. CANDICE Serrano witnessed HCPOA decision by patient. SW inquired about pt ex Yamila who has been calling in. Pt states we are close but gives no further information. Pt does state information can be given to Yamila if she calls. BELÉN called pt and son Juno into pt room and with pt permission, SW explained the Health Care POA decision that pt made. Copy of HCPOA placed on pt chart and original given to pt. BELÉN spoke with pt, Laverne and Juno about hospice program. Verbal information and written pamphlet given to pt regarding hospice option and SW offered to make a consult to hospice for a liaison to meet with pt and family to discuss hospice. Pt stating that he has to think about this and is unwilling at this time to meet with hospice. Pt made aware that if he changes his mind he can reach out to nurse who will notify SW. Dr. Rojas and CANDICE Serrano updated. After above conversation with pt, SW received phone call from pt ex Yamila. Yamila belligerent with SW. Angry that pt's and son have been made HCPOA and were making medical decisions yesterday. SW explained that SW met with pt privately and he made decision of HCPOA independent of outside influence. SW explained legal decision making hierarchy that was in place yesterday when pt could not make his own decisions. SW will remain available as further needs arise. DINESH Esquivel
--- NOTE | 2022-11-05 11:50 | CASEMGMT ---
Addendum entered by Nu Benson 11/05/22 13:05: Call from [facility] and pt will be seen today at 1400. SW notified ICU nurse. DINESH Esquivel Original Note: Social work SW received call from CANDICE Serrano that pt is requesting to speak with hospice regarding options. Referral sent to [facility]. DINESH Esquivel
[2022-11-05] MEDS: Metoprolol Tartrate 25 MG Tablet PO ×2 (12:47→21:26)
[2022-11-05] MEDS: Pantoprazole Sodium 20 MG Tablet PO (12:47)
[2022-11-05] MEDS: predniSONE 20 MG Tablet PO (12:47)
--- NOTE | 2022-11-05 12:53 | CT_ITS ---
STUDY: CT CHEST WITHOUT CONTRAST REASON FOR EXAM: Male, 72 years old. Pneumothorax RADIATION DOSAGE (If Supplied By Facility): CTDIvol = ( 5.96 ) mGy, DLP = ( 244.63 ) mGycm TECHNIQUE: Transaxial imaging was performed without the administration of intravenous contrast material. Multiplanar coronal and sagittal images were reformatted. Individualized dose optimization techniques were used for this CT. COMPARISON: Comparison is made with prior study dated November 01, 2022. FINDINGS: CHEST Loss in the right hemithorax with hyperexpansion of the left lung. Small loculated pneumothorax in the right upper lobe. A small caliber chest tube is seen with the tip along the lateral aspect of the right upper hemithorax. There are calcifications of the coronary arteries. Stable 1.8 cm x 1.2 cm spiculated mass in the right upper lobe. Enlarged mediastinal lymph nodes. Once again, is a 4.1 cm x 4.9 cm right suprahilar mass causing narrowing of the right upper lobe bronchus as well as protruding into the right side of the trachea suggestive of tumor extension. The mass also extends into the right interlobar bronchus. Normal unenhanced pulmonary arteries. There is atherosclerotic calcification of the aortic arch with tortuosity and elongation of the aortic arch and descending thoracic aorta. There are multi-level degenerative changes of the thoracic spine. Stable hepatic cyst in the central aspect of the right lobe of the liver. Stable right renal cysts. CT/Chest without Contrast IMPRESSION: Small loculated pneumothorax in the right upper lobe. A small caliber chest tube is seen along the lateral aspect of the right upper lobe. The remainder of examination is essentially unchanged. Electronically Signed: John Martel MD at 14:28 EDT ,
--- NOTE | 2022-11-05 14:21 | RAO.OV_ITS ---
Intake Vital Signs 10/31/22 05:46 10/31/22 05:49 10/31/22 05:49 10/31/22 06:27 10/31/22 07:34 10/31/22 08:19 10/31/22 09:23 10/31/22 09:29 10/31/22 11:00 10/31/22 13:36 10/31/22 13:36 10/31/22 13:36 10/31/22 13:37 10/31/22 14:04 10/31/22 14:41 10/31/22 19:31 10/31/22 19:31 10/31/22 20:39 10/31/22 23:00 11/01/22 03:15 11/01/22 04:07 11/01/22 06:49 11/01/22 06:49 11/01/22 10:04 11/01/22 10:06 11/01/22 12:40 11/01/22 15:56 11/01/22 16:10 11/01/22 19:40 11/01/22 19:40 11/01/22 22:48 11/02/22 05:12 11/02/22 06:43 11/02/22 06:43 11/02/22 08:05 11/02/22 08:06 11/02/22 13:11 11/02/22 14:50 11/02/22 15:00 11/02/22 15:05 11/02/22 17:59 11/02/22 18:55 11/02/22 18:55 11/02/22 19:05 11/02/22 20:50 11/02/22 21:34 11/03/22 01:30 11/03/22 02:50 11/03/22 03:05 11/03/22 03:05 11/03/22 03:20 11/03/22 03:40 11/03/22 03:54 11/03/22 07:21 11/03/22 07:21 11/03/22 07:46 11/03/22 09:15 11/03/22 10:59 11/03/22 11:32 11/03/22 11:41 11/03/22 12:09 11/03/22 12:17 11/03/22 12:27 11/03/22 12:57 11/03/22 12:58 11/03/22 14:00 11/03/22 15:38 11/03/22 16:00 11/03/22 18:00 11/03/22 19:00 11/03/22 19:02 11/03/22 20:00 11/03/22 20:00 11/03/22 20:05 11/03/22 20:15 11/03/22 20:37 11/03/22 21:00 11/03/22 21:57 11/03/22 22:00 11/03/22 23:15 11/03/22 23:20 11/03/22 23:25 11/03/22 23:30 11/03/22 23:35 11/03/22 23:40 11/03/22 23:45 11/03/22 23:50 11/03/22 23:52 11/04/22 00:00 11/04/22 00:00 11/04/22 00:15 11/04/22 00:15 11/04/22 00:19 11/04/22 00:30 11/04/22 00:30 11/04/22 00:45 11/04/22 00:58 11/04/22 01:00 11/04/22 01:30 11/04/22 01:45 11/04/22 01:50 11/04/22 02:00 11/04/22 02:15 11/04/22 02:22 11/04/22 02:33 11/04/22 02:45 11/04/22 03:00 11/04/22 03:15 11/04/22 03:30 11/04/22 03:45 11/04/22 04:00 11/04/22 04:15 11/04/22 04:30 11/04/22 04:45 11/04/22 05:00 11/04/22 05:15 11/04/22 05:30 11/04/22 05:32 11/04/22 05:37 11/04/22 05:45 11/04/22 05:50 11/04/22 06:00 11/04/22 06:30 11/04/22 06:51 11/04/22 06:51 11/04/22 07:00 11/04/22 08:00 11/04/22 09:00 11/04/22 09:00 11/04/22 09:08 11/04/22 09:53 11/04/22 10:00 11/04/22 11:00 11/04/22 11:18 11/04/22 11:18 11/04/22 12:00 11/04/22 13:00 11/04/22 13:25 11/04/22 19:00 11/04/22 20:00 11/05/22 03:04 11/05/22 07:41 11/05/22 08:17 11/05/22 10:30 11/05/22 12:00 11/05/22 12:47 11/05/22 14:33 Height 6 ft 2 in 6 ft 2 in 6 ft 2 in 6 ft 2 in 6 ft 2 in 6 ft 2 in 6 ft 2 in 6 ft 2 in Weight: 164 lb 0.383 oz 159 lb 9.835 oz 159 lb 9.835 oz 159 lb 9.835 oz 159 lb 9.835 oz 153 lb 10.595 oz 153 lb 10.59 5 oz 152 lb 8.958 oz 152 lb 8.958 oz BMI 21.0 20.5 20.5 20.5 19.7 19.5 BP 173/105 H 157/100 H 156/96 H 138/83 H 146/90 H 147/88 H 12 8/87 H 134/90 H 136/88 H 117/74 147/88 H 144/96 H 132/89 H 135/ 81 H 158/101 H 138/93 H 165/89 H 156/87 H 152/102 H 145/103 H 133 /91 H 136/101 H 140/106 H 139/103 H 132/91 H 110/87 H 122/96 H 138/110 H 150/124 H 150/124 H 141/102 H 156/105 H 188/126 H 100/71 138/95 H 121/86 H 116/84 H 116/88 H 105/78 116/85 H 123/90 H 124/87 H 120/85 H 10 6/84 H 97/79 95/70 86/69 L 84/69 L 79/65 L 73/61 L 73/63 L 76/65 L 83/70 L 87 /71 L 84/66 L 89/74 L 91/70 93/73 91/72 94/71 117/86 H 96/63 99/85 H 123/88 H Position Semi-Fowlers Semi-Fowlers Semi-Fowlers Semi-Fowlers Semi-Fowlers Semi-Fowlers Semi-Fowlers Semi-Fowlers Semi- Fowlers Semi-Fowlers Semi-Fowlers Semi-Fowlers Semi-Fowlers [facility] i- Fowlers Semi-Fowlers Semi-Fowlers Semi-Fowlers Semi-Fowlers Semi-Fowlers Semi-Fowlers Semi-Fowlers Semi-Fowlers Semi-Fowlers Semi-Fowlers Semi-Fowlers Respiration 22 H 18 20 H 20 H 18 22 H 24 H 19 H 20 H 20 H 20 H 16 18 18 16 18 18 18 17 18 19 H 25 H 24 H 20 H 20 H 18 22 H 26 H 22 H 24 H 20 H 20 H 19 H 19 H 20 H 20 H 22 H 20 H 22 H 24 H 24 H 27 H 22 H 22 H 17 19 H 27 H 22 H 24 H 27 H 24 H 28 H 24 H 25 H 45 H 45 H 40 H 40 H 40 H 55 H 28 H 40 H 30 H 40 H 25 H 27 H 28 H 31 H 31 H 20 H 20 H 20 H 28 H 24 H 15 25 H 24 H 20 H 24 H 24 H 24 H 24 H 24 H 24 H 24 H 24 H 24 H 24 H 24 H 24 H 24 H 24 H 24 H 24 H 24 H 24 H 24 H 24 H 24 H 24 H 28 H 24 H 25 H 24 H 25 H 17 24 H 17 19 H 28 H Pulse 108 H 99 98 100 100 90 87 95 89 86 87 84 100 10 0 91 74 78 79 73 100 109 H 97 94 94 84 68 92 95 90 86 85 85 93 91 1 01 H 98 114 H 109 H 106 H 108 H 110 H 99 88 100 105 H 112 H 113 H 115 H 114 H 11 5 H 104 H 95 94 110 H 102 H 101 H 101 H 109 H 107 H 113 H 107 H 104 H 104 H 95 109 H 100 101 H 109 H 108 H 109 H 113 H 113 H 112 H 110 H 108 H 109 H 108 H 103 H 100 99 98 98 97 95 94 97 91 91 95 94 94 92 94 96 98 98 99 98 89 183 H 170 H 193 H 178 H Temp 98.4 F 98 F 98.1 F 98.6 F 99.0 F 98.9 F 98.4 F 9 8.6 F 98.2 F 97.5 F L 98.2 F 98.2 F 98 F 97.3 F L 98.1 F 99.1 F 98.9 F 98.4 F 98.6 F 98.8 F 98.8 F 98.3 F 98 F 98 F 97.7 F L 97.5 F L 97.4 F L 97.3 F L 97.2 F L 97.1 F L 97.1 F L 96.9 F L 96.9 F L 96.8 F L 96.7 F L 96.8 F L 96.7 F L 96.6 F L 96.6 F L 97 .0 F L 98.5 F 98.9 F 99.8 F H 99.7 F H 100.6 F H Pulse Oximetry (%) 76 84 93 93 93 98 98 85 97 96 93 93 93 95 93 94 96 94 92 93 84 92 93 88 92 93 97 87 86 91 93 93 90 91 91 90 90 86 88 87 91 90 97 94 96 92 89 88 86 92 92 94 92 92 93 84 78 69 85 77 84 77 78 78 90 95 95 95 89 91 86 91 84 58 84 56 62 62 68 63 60 49 44 46 46 67 76 78 78 68 62 59 64 66 71 76 65 65 69 59 62 71 73 74 68 81 78 70 84 Oxygen Flow Rate (L/min) 4 5 6 8 10 10 10 10 8 10 10 10 9 7 7 8 8 8 8 8 8 8 8 8 10 15 15 70 70 50 50 60 60 6 0 60 60 60 60 60 60 100 2 2 2 2 2 4 Comment on continuous pulse ox. pt speaks in full sentences Intake Visit Reasons: PNEUMONIA, HYPOXIA, COPD Chief Complaint: copd Allergies No Known Allergies Allergy (Verified 10/31/22 07:42) Medications amlodipine 10 mg tablet 10 mg PO DAILY high blood pressure 10/31/22 [History Confirmed 10/31/22] pantoprazole 20 mg tablet,delayed release 20 mg PO DAILY 10/31/22 [History Confirmed 10/31/22] prednisone 20 mg tablet 20 mg PO DAILY breathing 10/31/22 [History Confirmed 10/31/22] Home Medications Ipratropium [place] (Ipratropium 0.5 Mg/2.5 Ml Solution) 0.5 mg INHALATION Q6HWA.RT [facility] Lorazepam (Lorazepam 2 Mg/Ml Syringe) 2 - 8 mg IV Q2H PRN PRN PRN Reason: ANXIETY/AGITATION Last Admin: 11/04/22 13:24 Dose: 2 mg Metoprolol Tartrate (Metoprolol Tartrate 25 Mg Tablet) 25 mg PO BID [facility] Last Admin: 11/05/22 12:47 Dose: 25 mg Morphine Sulfate (Morphine 2 Mg/Ml Syringe) 2 - 8 mg IV Q1H PRN PRN PRN Reason: Dyspnea Last Admin: 11/04/22 13:24 Dose: 4 mg Ondansetron HCl (Ondansetron 4 Mg/2 Ml Vial) 4 mg IV Q8H PRN PRN PRN Reason: NAUSEA/VOMITING Pantoprazole Sodium (Pantoprazole Sodium 20 Mg Tablet) 20 mg PO DAILY [facility] Last Admin: 11/05/22 12:47 Dose: 20 mg Prednisone (Prednisone 20 Mg Tablet) 20 mg PO BREAKFAST [facility] Last Admin: 11/05/22 12:47 Dose: 20 mg Sodium Chloride (0.9% Saline Lock 10 Ml Syringe) 10 - 40 ml IV UD PRN PRN Reason: SALINE FLUSH Last Admin: 11/04/22 09:51 Dose: 20 ml Discontinued Medications Acetaminophen (Acetaminophen 325 Mg Tablet) 650 mg PO Q6H PRN PRN PRN Reason: Pain 1-10 Or Fever >100.7 Albuterol Sulfate (Albuterol 2.5 Mg/3 Ml Vial.Neb.) 2.5 mg INHALATION Q2H PRN PRN PRN Reason: DYSPNEA Last Admin: 11/04/22 02:22 Dose: 2.5 mg Albuterol Sulfate (Albuterol 2.5 Mg/3 Ml Vial.Neb.) 2.5 mg INHALATION X1 ONE Stop: 11/03/22 11:28 Last Admin: 11/03/22 11:30 Dose: 2.5 mg Albuterol/Ipratropium (Ipratropium/Albuterol Sulfate 3 Ml Ampul.Neb) 3 ml INHALATION X1 ONE Stop: 10/31/22 06:16 Last Admin: 10/31/22 06:26 Dose: 3 ml Albuterol/Ipratropium (Ipratropium/Albuterol Sulfate 3 Ml Ampul.Neb) 3 ml IN HALATION Q6H.RT [facility] Amlodipine Besylate (Amlodipine 10 Mg Tablet) 10 mg PO DAILY [facility] Last Admin: 11/04/22 09:50 Dose: Not Given Chlorhexidine Gluconate (Chlorhexidine 15 Ml) 15 ml PO BID [facility] Last Admin: 11/04/22 09:48 Dose: 15 ml Chlorhexidine Gluconate (Chlorhexidine Gluc 2% Cloth 1 Each Towelette) 1 each TOPICAL DAILY [facility] Last Admin: 11/04/22 10:22 Dose: Not Given Diphenhydramine HCl (Diphenhydramine 50 Mg/Ml Syringe) 50 mg IV X1 ONE Stop: 11/03/22 13:52 Last Admin: 11/03/22 14:01 Dose: 50 mg Etomidate (Etomidate 20 Mg/10 Ml Vial) 20 mg IV X1 ONE Stop: 11/04/22 00:56 Last Admin: 11/04/22 00:55 Dose: 20 mg Furosemide (Furosemide 40 Mg/4 Ml Vial) 40 mg IV X1 ONE Stop: 11/03/22 03:31 Last Admin: 11/03/22 03:50 Dose: 40 mg Furosemide (Furosemide 40 Mg/4 Ml Vial) 40 mg IV X1 ONE Stop: 11/03/22 09:01 Last Admin: 11/03/22 09:11 Dose: 40 mg Guaifenesin (Guaifenesin 1,200 Mg Tablet) 1,200 mg PO BID [facility] Last Admin: 11/04/22 09:49 Dose: Not Given Heparin Sodium (Porcine) (Heparin Injection (Vial) 5,000 Unit/Ml Vial) 5,000 unit SC Q12 [facility] Last Admin: 11/01/22 09:41 Dose: 5,000 unit Ceftriaxone Sodium 2 gm/ (Sodium Chloride) 50 mls @ 100 mls/hr IV X1 ONE Stop: 10/31/22 08:07 Last Infusion: 10/31/22 09:35 Dose: Infused Azithromycin 500 mg/ Dextrose 255 mls @ 250 mls/hr IV X1 ONE Stop: 10/31/22 08:39 Last Infusion: 10/31/22 12:50 Dose: Infused Sodium Chloride () 250 mls @ 15 mls/hr IV .[id number] PRN PRN Reason: Additional IVPB Infusion Last Infusion: 11/04/22 13:54 Dose: Infused Sodium Chloride () 250 mls @ 15 mls/hr IV .[id number] PRN PRN Reason: Saline Flush Azithromycin 500 mg/ Dextrose 255 mls @ 250 mls/hr IV Q24 YANNICK Last Infusion: 11/04/22 12:53 Dose: Infused Ceftriaxone Sodium (Rocephin) 1 gm in 50 mls @ 100 mls/hr IV Q24 YANNICK Last Infusion: 11/01/22 10:10 Dose: Infused Sodium Chloride () 1,000 mls @ 0 mls/hr IV .Q0M YANNICK Piperacillin Sod/Tazobactam (Sod 3.375 gm/ Sodium Chloride) 50 mls @ 12.5 mls/hr IV Q8 YANNICK Last Infusion: 11/04/22 10:24 Dose: Infused Propofol (Diprivan) 1,000 mg in 100 mls @ 4.344 mls/hr CONT INF .Q12H YANNICK; Protocol Last Titration: 11/04/22 13:52 Dose: Infused Fentanyl () 100 mls @ 5 mls/hr CONT INF UD YANNICK; Protocol Last Titration: 11/04/22 13:53 Dose: Infused Pantoprazole Sodium 40 mg/ (Sodium Chloride) 110 mls @ 330 mls/hr IV Q24 YANNICK Last Infusion: 11/04/22 10:30 Dose: Infused Cisatracurium Besylate 100 mg/ (Sodium Chloride) 250 mls @ 21.72 mls/hr CONT INF .[id number] [facility]ANNICK; Protocol Last Titration: 11/04/22 12:54 Dose: Infused Norepinephrine Bitartrate 8 mg (/ Sodium Chloride) 250 mls @ 9.375 mls/hr CONT INF .[id number] [facility]ANNICK; Protocol Last Titration: 11/04/22 13:25 Dose: Infused Ipratropium [place] (Ipratropium 0.5 Mg/2.5 Ml Solution) 0.5 mg INHALATION Q6HWA.RT [facility] Last Admin: 11/04/22 06:51 Dose: 0.5 mg Ipratropium [place] (Ipratropium 0.5 Mg/2.5 Ml Solution) 0.5 mg INHALATION Q4H.RT [facility] Last Admin: 11/04/22 11:18 Dose: 0.5 mg Lidocaine HCl (Lidocaine Jelly 2% Tube 30 Ml) 0 tube TOPICAL UD [facility]; Protocol Last Admin: 11/04/22 10:23 Dose: Not Given Lorazepam (Lorazepam 0.5 Mg Tablet) 2 mg PO X1 ONE Stop: 11/03/22 19:35 Last Admin: 11/03/22 19:51 Dose: 2 mg Lorazepam (Lorazepam 2 Mg/Ml Syringe) 2 mg IV X1 ONE Stop: 11/03/22 23:39 Last Admin: 11/03/22 23:45 Dose: 2 mg Methylprednisolone Sodium Succinate (Methylprednisolone Sod Succ 40 Mg/Ml Vial) 40 mg IV Q8 [facility] Last Admin: 11/04/22 05:36 Dose: 40 mg Pantoprazole Sodium (Pantoprazole Sodium 20 Mg Tablet) 20 mg PO DAILY [facility] Last Admin: 11/03/22 07:53 Dose: 20 mg Potassium Chloride (Potassium Chloride Oral Tablet 20 Meq) 40 meq PO X1 ONE Stop: 10/31/22 10:43 Last Admin: 10/31/22 11:00 Dose: 40 meq Sodium Bicarbonate (Sodium Bicarbonate 8.4% 50 Ml Syringe) 50 meq IV X1 ONE Stop: 11/04/22 08:52 Last Admin: 11/04/22 09:48 Dose: 50 meq Succinylcholine Chloride (Succinylcholine Chloride 200 Mg/10 Ml Syringe) 100 mg IV X1 ONE Stop: 11/04/22 00:57 Last Admin: 11/04/22 00:56 Dose: 100 mg Succinylcholine Chloride (Succinylcholine Chloride 200 Mg/10 Ml Syringe) 100 mg IV X1 ONE Stop: 11/04/22 01:31 Last Admin: 11/04/22 01:53 Dose: 100 mg Succinylcholine Chloride (Succinylcholine Chloride 200 Mg/10 Ml Syringe) 100 mg IV X1 ONE Stop: 11/04/22 01:31 Last Admin: 11/04/22 01:37 Dose: 100 mg PFSH [facility] Medical History (Updated 11/04/22 @ 17:[address] Kaylie Dial DO) COPD exacerbation Former smoker GERD (gastroesophageal reflux disease) Hypertension Mass of right lung Postobstructive pneumonia Home Medications amlodipine 10 mg tablet 10 mg PO DAILY high blood pressure 10/31/22 [History Last Taken 10/31/22] pantoprazole 20 mg tablet,delayed release 20 mg PO DAILY 10/31/22 [History Last Taken Unknown] prednisone 20 mg tablet 20 mg PO DAILY breathing 07/02/23 [History Last Taken 10/30/22] Allergy/AdvReac Type Severity Reaction Status Date / Time No Known Allergies Allergy Verified 10/31/22 07:42 Surgical History History of tonsillectomy Social History Smoking Status: Former smoker Referring Provider: Jayro Brown MD Diagnosis: Jay Wade is a 72-year-old male diagnosed with likely locally advanced lung cancer (cT4 cN2 Mx) status post CT chest with contrast (11/01/2022). History of Present Illness: 11/01/2022: CT chest with contrast was performed.? There is a 4.1 x 4.9 x 4.7 cm soft tissue mass in the right suprahilar region adjacent to the right paratracheal region.? The mass is seen protruding into the distal portion of the trachea as well as in the right upper lobe bronchus causing narrowing of the bro nchus at that site.? There is also a 1.4 x 1 cm spiculated mass in the right upper lobe noted.? Hyperinflation is also demonstrated.? There is a faint 1 cm nodule seen in the superior lateral aspect of the left lower lobe.? There is also evidence of bronchiectasis in the right lower lobe.? There is evidence for bilateral adrenal hyperplasia with a 5.8 x 3.7 cm cyst in the central portion of the right lobe of the liver adjacent to the laya hepatis. Radiation Treatment History: No prior history of radiation therapy. No pacemaker. No diagnosis of radiosensitizing comorbidity. Interval History: Patient was seen in the ICU. He is on 7 L of oxygen by nasal cannula and very subdued. Discussion was had with the patient as well as multiple family members who are present. He reports having worsening breathing over the last couple of weeks which brought him to the hospital several days ago. His shortness of breath has fluctuated while in the hospital, today he has fairly severe shortness of breath and does remain on nasal cannula. He denies having cough or hemoptysis right now. He denies having dysphagia or odynophagia, denies guzman rseness. He denies headache, vision changes, focal weakness/numbness, bone pain. He believes he has not had any weight loss and reports appetite being normal. Energy level is low. He denies having other problems or concerns at this time. Review of Systems: A 12-point review of systems was completed and was negative except for what is noted in the HPI/Interval History and by the nurse. Physical Exam: Weight: 152 lbs ECO KARNOFSKY SCORE: 40% CONSTITUTIONAL: Well-developed, well-nourished, and in no apparent distress. NECK: Supple, no thyromegaly, and non-tender. Trachea midline. No cervical or supraclavicular adenopathy noted. CARDIAC: Regular rate and rhythm. Normal S1, S2. No murmurs, rubs, or gallops. PULMONARY/CHEST: Diminished lung sounds throughout the right lung youngblood, otherwise lungs are clear to auscultation and percussion bilaterally. No wheezes, rhonchi, or crackles noted. 7L O2 by nasal cannula, there is some i ncreased work of breathing and he is out of breath. Right chest tube in place. ABDOMINAL: Abdomen soft, non-tender, non-distended. No hepatomegaly. Normoactive bowel sounds in all four quadrants. No guarding, rebound. BACK: Straight and aligned. No CVA tenderness. Axial skeleton non-tender to percussion. EXTREMITIES: Full range of motion in all four extremities. No evidence of edema. PSYCHIATRIC: Appropriate mood and affect for the clinical situation. Imaging: As per HPI Laboratory Data: 11/04/2022: White blood cell 23, ANC 20.4. CBC and CMP unremarkable Assessment & Plan Assessment/Plan (1) Mass of right lung: PLAN: Assessment: Jay Wade is a 72-year-old male diagnosed with likely locally advanced lung cancer (cT4 cN2 Mx) status post CT chest with contrast (11/01/2022). Plan: Patient was seen in his hospital room in the ICU. He does have noticeable shortness of breath and is on 7 L oxygen by nasal cannula right now. I reviewed the imaging findings of the CT chest with contrast as well as the multiple x-ra ys that have been performed over the last week.? Imaging demonstrates a very large centrally located mass within the right suprahilar region with direct invasion into the distal trachea as well as the right upper lobe bronchus causing some secondary narrowing of the bronchus.? There is also a spiculated lesion in the right upper lobe which is very suspicious.? Other potential lesions bilaterally are less conspicuous.? He does appear to have underlying COPD with hyperinflation.? Since having intubation he developed a right pneumothorax and now has a chest tube in place, x-rays demonstrate reduced lung expansion of the right side, CT chest on 11/01/2022 demonstrated full expansion bilaterally.? Pathology from sputum cytology showed atypical cells but no confirmatory malignancy. Chest CT completed today appears to demonstrate worsening atelectasis/consolidation of the particularly right lower lobe. I reviewed with the patient that these findings are very highly suspicious for a malignant process which is very locally advanced, this appears to be T4 with tracheal invasion and potentially N1 or N2 with hilar or potentially small mediastinal lymph node involvement.? We did review that for definitive staging PET scan is highly recommended as well as MRI of the brain.? Given the locally invasive nature of this disease we reviewed that surgical resection is not feasible but that potentially if he does not have metastatic disease that definitive chemoradiation would be a reasonable approach to provide improved disease-free survival and potentially overall survival.? He has not been able to have a definitive pathologic diagnosis yet due to airway difficulties and hypoxia during planned bronchoscopic procedure, it is felt by pulmonology that he is not currently able to proceed with bronchoscopy safely and that tissue biopsy is difficult right now.? Also with central disease and the right-sided pneumothorax it is unclear but seems unlikely that CT-guided approach would be possible.? We did review that it is possible to proceed with radiation therapy given the high probability of malignancy but that this would be delivered tomorrow for a palliative approach and that systemic therapy would likely not be completed unless pathologic diagnosis was made to help guide which systemic therapy to use.? We did discuss that the use of palliative radiation to the primary disease could potentially compromise the ability to deliver definitive treatment in the future. We reviewed the potential use of stent to more quickly expand the right lung. We reviewed that palliative radiation therapy may reexpand the right lung but also this may be a low likelihood or take multiple weeks given that we do not know the pathology. I reviewed the logistics of radiation therapy including CT simulation, treatment planning and daily fractionated treatment delivery. I reviewed the risks, benefits, alternatives to both definitive and palliative radiation therapy and answered all questions. We reviewed the potential acute and chronic toxicities from thoracic radiation and also discussed the relative likelihood and potential timeframe of these toxicities. Following our discussion the patient was unclear with what he would like to proceed with. I defer to pulmonary to see if stent placement may be beneficial to more quickly reexpand his lung, provide definitive tissue diagnosis, and then proceed with hopefully definitive treatment. He is also meeting with hospice today and will determine whether he wants any active treatment at all. I will plan to follow-up with him to see wha t his treatment decision is and we will plan to expedite palliative radiation therapy if this is what he desires to proceed with. Patient was instructed to call with any further questions or concerns. Thank you for allowing me to participate in the management and care of your patient. If I may answer any questions in the interim, please do not hesitate to contact me at any time. Jez Kaufman DO, MS Senior Finance Manager, Department of Radiation Oncology [facility] Coding Level of Care Code Off vis,new,level 5 Exam Problem Focused Diagnoses Mass of right lung R91.8
--- NOTE | 2022-11-05 15:32 | CHAPLAIN ---
Type of Pastoral Visit ___ Initial Visit _x__ Follow-up Visit ___ On-call Visit ___ General Patient Visit ___ Spiritual Assessment ___ Family Conference ___ Bereavement ___ Rapid Response ___ Code Blue ___ Other (describe below) Pastoral Care Referral From ___ Patient _x__ Family ___ Nurse ___ Physician ___ Mortgage Professional ___ Alumni Relations Manager ___ Other (describe below) Sacrament/Intervention _x__ Active listening ___ Anointing ___ Shinto ___ Bereavement ___ Communion ___ Irene exploration ___ ___ Life review _x__ Prayer ___ Reconciliation ___ Sacrament of Sick _x__ Supportive presence ___ Wedding ___ Other (describe below) Pastoral Comments patient is alert today and able to speak clearly; pt states his discomfort but understands that he was in bad health; pt accepts presence and prayer; son is also in the room and affirms the changes and improvements; pt is to be transferred out for further interventions
--- NOTE | 2022-11-05 17:11 | FLU_PTH ---
PATIENT: SADIE EATON LOC: [facility] U#:[id number] AGE/SX: 72/M ROOM: ICU04 RE10/31/[address]: Dr. Kaylie Dial DO : 1950 BED: 1 DIS: 11/06/2022 SPEC #: [id number] RECD: 11/08/22 10:31 STATUS: CARMINA REQ #: [id number] EVGENY: 11/05/22 17:[address]: Kaylie Dial DEPT: CYTOLOGY RECD BY: Aliya Joy ENTERED: 11/08/22 10:32 SP TYPE: Fluid OTHR DR: MD Dr. Oleksandr Squires DO Dr. Lee Ann Baggott, MD Dr. Mark Tereletsky, DO Dr. Jez Kaufman, DO Dr. Slim Cristina MD Primary Care Phys Mona Courtney, ANTHONY Tissues: THORACIC FLUID Procedures: Special Stain Group II Surgery Specimen Level IV Cytospin Fluid HEADER OPERATION: Not noted PRE-OP DIAGNOSIS: PNEUMONIA, HYPOXIA, COPD TISSUE SUBMITTED: Thoracentesis fluid DIAGNOSIS CYTOLOGY Thoracentesis fluid for cytology (cytospins and cell block): Negative for malignant cells. See Comment. AM/am 11/10/22 COMMENT Immunohistochemistry ([id number]) supports the diagnosis. CYTOLOGY STUDY Slides are reviewed. CYTOLOGY GROSS Received is 20 ml of yellow cloudy fluid labeled with the patient's name and and designated per the requisition as thoracentesis flued Submitted for cytology preparation including cell block./AM 11/08/22. CPT: 22140, 89343
[2022-11-05 17:22] LABS: Acid Fast Stain SEE PATHOLOGY REPORT; Cytology, Body Fluid / CSF SEE PATHOLOGY REPORT
--- NOTE | 2022-11-05 17:54 | PCM.PN.HOSP ---
Reason for Visit Reason for Visit: Shortness of breath Subjective Subjective Events from the night reviewed and patient tolerated extubation despite extremely low oxygen saturations and woke up late in the evening and was alert and oriented and appropriate. He developed tachycardia with which appear to be A-fib with RVR. He had a discussion with radiation oncology as well as hospice today and elected to change his CODE STATUS back to DNR CCA with no intubation to pursue may be some more aggressive options including possible stenting at tertiary center. His insurance allowed him to go anywhere and he was okay with being transferred to [facility] if they were able to accept him. Objective Data Objective Data Vital Signs: Vital Signs Temp Pulse Resp BP Pulse Ox O2 Del Method O2 Flow Rate 100.6 F H 178 H 28 H 123/88 H 84 Nasal Cannula 6 11/05/22 12:00 11/05/22 12:47 11/05/22 12:00 11/05/22 12:00 11/05/22 12:00 11/05/22 14:00 11/05/22 14:00 FiO2 100 11/04/22 13:00 Oxygen Flow Rate (L/min) 6 Oxygen Delivery Method Nasal Cannula Weight: 69.2 kg Body Mass Index (BMI) 19.5 Intake & Output: Intake and Output for Last 24 Hours 11/03/22 11/04/22 11/05/22 23:59 23:59 23:59 Intake Total 495.75 / 495.75 1228.38 / 1228.38 320 / 320 Output Total 4275 / 4875 1175 / 1175 400 / 400 Balance -3779.25 / -4379.25 53.38 / 53.38 -80 / -80 Lab / Micro Data 11/04/22 04:10 11/04/22 04:10 Labs: Laboratory Results - last 24 hr 11/02/22 15:25: Diff Path Review Reviewed Micro: Microbiology 11/04/22 01:20 Sputum, Induced/Lukens Gram Stain - Final 11/04/22 01:20 Sputum, Induced/Lukens Respiratory Culture - Preliminary Culture exhibits no growth. 10/31/22 07:50 Blood Culture (Wb) - Anticubital Left Blood Culture - Final No growth in 5 days. 10/31/22 08:05 Blood Culture (Wb) - Right Forearm Blood Culture - Final No growth in 5 days. 10/31/22 21:20 Sputum, Expectorated/Coughed Gram Stain - Final 10/31/22 21:20 Sputum, Expectorated/Coughed Respiratory Culture - Final Presumptive C albicans 11/02/22 15:08 Mucosa - Nose Respiratory Panel (PCR) - Final 10/31/22 14:45 Urine, Random Legionella Antigen - Final 10/31/22 14:45 Urine, Random Streptococcus pneumoniae Antigen (M - Final 10/31/22 06:25 Nasal Secretion SARS-CoV-2 & FLU Antigen (Rapid) - Final Radiography Diagnostic Testing: Radiology Impression Chest X-Ray 11/05/22 09:35 IMPRESSION: Slight decrease in size of the right apical pneumothorax with persistent pleural parenchymal changes at the right lung base. The endotracheal tube and nasogastric tube have been removed. Electronically Signed: John Martel MD at 10:59 EDT , Chest CT 11/05/22 12:53 IMPRESSION: Small loculated pneumothorax in the right upper lobe. A small caliber chest tube is seen along the lateral aspect of the right upper lobe. The remainder of examination is essentially unchanged. Electronically Signed: John Martel MD at 14:28 EDT , Physical Exam Const alert, oriented x3 and no apparent distress; Negative for average body habitus or healthy appearing Constitutional Narrative: Thin, older white male, appears older than stated age, sitting up in bed, at bedside, appears fatigued but nontoxic, interacts appropriately HEENT head/scalp atraumatic; Negative for moist oral mucous membranes HEENT Narrative: Dentition is poor, Mallampati is 1, no thrush, mucous membranes are slightly dry Head and Scalp: normocephalic Resp no retractions, no use of accessory muscles and No clear to auscultation bilaterally Resp Narrative: Diminished breath sounds on the right most notably at the apex and base, clear on the left Auscultation: Negative for rales, rhonchi or wheezes Cardio S1 normal heart sound, S2 normal heart sound, no murmurs, no rub, no gallops and no clicks; Negative for regular rate or regular rhythm Cardio Narrative: Tachycardia with irregularly irregular rhythm GI normal to inspection, nondistended, normoactive bowel sounds, soft to palpation and non-tender GI Narrative: Scaphoid abdomen Extremity no clubbing, cyanosis or edema Extremity Narrative: Pedal pulses are 2+ bilaterally Neuro oriented x3, moves all extremities and no focal motor deficits Speech: speech normal Psych Psych Narrative: Flat and patient appears tired but eye contact is good Assessment & Plan Assessment/Plan (1) Acute respiratory failure with hypoxia and hypercapnia: (2) Pneumothorax, right: (3) Hypokalemia: (4) COPD exacerbation: (5) Postobstructive pneumonia: (6) Mass of right lung: (7) Paroxysmal atrial fibrillation with RVR: PLAN: Plan -After extubation patient awakened in the evening and was alert and oriented and able to interact with family and drink some fluids. Further discussion with patient he would like to hear about some more options with regards to treatment of his suspected lung cancer. Pathology on sputum cytology still pending. Unfortunately he was not able to undergo a bronchoscopy. Options discussed with palliative care/hospice and radiation oncology and he is elected to change his CODE STATUS from DNR CC to DNR CCA with no intubation and pursue transfer for possible stenting and further investigation/medical care with regards to his right lung mass. I discussed the case with [facility] and he is pending acceptance. With regards to his new onset A-fib with RVR I bolused him with amiodarone 300 mg x 1 dose and then started amiodarone drip. His heart rates improved following. Disposition: Await acceptance and hopeful transfer to [facility] soon. Charges/Coding Visit Charges Inpatient E&M: 66490 Subs Hosp L2
[2022-11-05 17:57] LABS: Cytology, Body Fluid / CSF SEE PATHOLOGY REPORT
[2022-11-05] MEDS: Acetaminophen 500 MG Tablet 1000 MG PO (18:26)
[2022-11-05 18:29] LABS: Body Fluid Mononuclear WBC # 1.053 10^3/uL; Body Fluid Mononuclear WBC % 56.7 %; Body Fluid Polynuclear WBC # 0.803 10^3/uL; Body Fluid Polynuclear WBC % 43.3 %; Body Fluid Total Cells Counted 1.953 10^3/ul; White Blood Count/Body Fluid 1.856 10^3/uL
[2022-11-05 18:57] LABS: Auto B Fluid Analyzer BKGD Ct COUNTS W/IN LIMITS (W/IN LIMITS); Color/Body Fluid YELLOW; Red Cell Count/Body Fluid 323 /mm3
[2022-11-05 18:58] LABS: Protein, Body Fluid 2.1 g/dL (Not Establ.)
[2022-11-05 19:02] LABS: Troponin-I HS 87 pg/mL (3.0-78.0)
[2022-11-05 19:04] LABS: Source- Body Fluid PLEURAL FLUID
[2022-11-05 19:15] LABS: Glucose, Body Fluid 121 mg/dL (40-70); LDH,Body Fluid 436 Units/l (Not Establ.)
[2022-11-05 19:22] LABS: Lymphocytes 4 %; Monocytes 6 %; Neutrophil (Segs) 90 %
[2022-11-05 19:23] LABS: Appearance/Body Fluid CLEAR
[2022-11-05] MEDS: Amiodarone 360 MG in Dextrose 5% Viaflo Bag 192.8 ML 33.3 MG CONT INF (20:17)
[2022-11-05 20:55] LABS: Body Fluid QC Type(s) BF2Q
[2022-11-05 21:09] LABS: Troponin-I HS 88 pg/mL (3.0-78.0)
[2022-11-06] VITALS: BP 112/79; PULSE 126; RESP 32; TEMP 37.6; O2SAT 71
[2022-11-06 00:21] LABS: Allen Test Positive; Base Excess 4 mmol/L (-2 to +2); Bicarbonate 26.3 mmol/L (22-26); Blood Gas Specimen Type ART; O2 Delivery Device Cannula; PO2 33 mmHG (75-100); SITE L Radial; SO2 73 % (95-99); Total Carbon Dioxide 27 mmol/L; pCO2 30.3 mmHg (35-45); pH 7.55 (7.35-7.45)
[2022-11-06 01:00] VITALS: BP 115/83; PULSE 126; RESP 32; TEMP 37.7; O2SAT 83
[2022-11-06 01:40] LABS: Troponin-I HS 79 pg/mL (3.0-78.0)
--- NOTE | 2022-11-06 02:10 | NURSING ---
[facility], transporting to [facility].
--- NOTE | 2022-11-06 06:47 | DS.PCM_ITS ---
Providers Date of Admission: 10/31/22 Date of Discharge: 11/06/22 Primary Care Physician: Debbie Primary Care Phys Consultations 10/31/22 10:42 Consult: Wet Pan Operator / Pulmonary Medicine Routine Consulting Provider: [facility] Reason for Consult: COPD, hypoxia EMERGENT Consult: No Notified: Yes Date Notified: 10/31/22 Time Notified: 10:48 Method of Notification: Text 11/05/22 09:54 Consult: Oncology/Hematology Routine Consulting Provider: Jez Kaufman Reason for Consult: lung neoplasm EMERGENT Consult: Yes Notified: Yes Date Notified: 11/05/22 Time Notified: 09:54 Method of Notification: Text Method of Consult:: In-Person Comments:: too sick for tissue dx; needs discussion on options Reason For Visit: PNEUMONIA, HYPOXIA, COPD Diagnosis Discharge Diagnosis (1) Acute respiratory failure with hypoxia and hypercapnia: Status: Acute Code(s): J96.01 - Acute respiratory failure with hypoxia; J96.02 - Acute respiratory failure with hypercapnia (2) Pneumothorax, right: Status: Acute Code(s): J93.9 - Pneumothorax, unspecified (3) Hypokalemia: Status: Acute Code(s): E87.6 - Hypokalemia (4) COPD exacerbation: Status: Chronic Code(s): J44.1 - Chronic obstructive pulmonary disease with (acute) exacerbation (5) Postobstructive pneumonia: Status: Acute Code(s): J18.9 - Pneumonia, unspecified organism (6) Mass of right lung: Status: Acute Code(s): R91.8 - Other nonspecific abnormal finding of lung field (7) Paroxysmal atrial fibrillation with RVR: Status: Acute Code(s): I48.0 - Paroxysmal atrial fibrillation Medications at Discharge Home Medications amlodipine 10 mg tablet 10 mg PO DAILY high blood pressure 10/31/22 pantoprazole 20 mg tablet,delayed release 20 mg PO DAILY 10/31/22 prednisone 20 mg tablet 20 mg PO DAILY breathing 10/31/22 Hospital Course Operations None Procedures Intubation and - (EKG/multiple chest x-ray/CT chest x2) Summary of Care Provided Hospital Course: Mr. Wade is a 72-year-old white male who presented to the emergency department [facility] on 10/31/2022 with a chief complaint of shortness of breath that had been worsening over several weeks. He had worsening respiratory status on the morning of admission and the squad was called. DuoNebs were given by EMS and he was brought to the emergency department for further evaluation. He indicated on presentation he had a recent outpatient work-up for shortness of breath which included being placed on inhalers and a nebulizer machine and a CT chest was performed late last week but he had not received the results as of yet. The patient stopped smoking about a week before presentation but did have a pack-year history of 50 years plus. He denied any significant coughing or sputum production and denied fever and chills on presentation. The patient was found to be hypoxic requiring 10 L of nasal cannula at the time of presentation and he had a leukocytosis with a white count of 16.3. Troponin was performed and found to be unremarkable. A BNP was performed and found to be 70.5. His potassium was slightly low at 3.1 and this was replaced. Chest x-ray showed COPD with bilateral perihilar and peribronchial infiltrates. His oxygen was able to be weaned and at baseline during his hospital course he was on 5 L nasal cannula. On Tuesday I received a call from his primary care physician, Dr. Boss, and she reported that the CAT scan that was performed as an outpatient showed a perihilar mass with right mainstem obstruction and lymphadenopathy. On admission he was placed on antibiotics to treat what was thought to be a postobstructive pneumonia, steroids for COPD exacerbation, schedule aerosols, incentive spirometry, and A capella. Pulmonary medicine was consulted once the CAT scan results were known and a repeat CAT scan with contrast was requested. That CT showed a 4.1 x 4.9 x 4.7 cm soft tissue mass in the right suprahilar region adjacent to the right paratracheal region. It caused protrusion into the distal portion of the trachea as well as and so the right upper bronchus. And a mass noted in the right upper lobe. Increased markings at the lung base were also noted as well as bronchiectasis, right renal cyst and right hepatic cyst and adrenal hyperplasia. Pulmonary medicine plan on doing a bronchoscopy on 11/03/2022 however the patient's respiratory status worsened on the evening of 05/05/2022 and he required up titration of oxygen eventually leading to Airvo utilization. Later on the day of 11/03/2022 after a coughing spell which was dry nonproductive he required transfer to the ICU as he became hypoxic on Airvo and there was concern for further respiratory decompensation. Through the night his hypoxia worsened and he required intubation. Postintubation x-ray was concerning for some pneumomediastinum and his a.m. chest x-ray showed a right pneumothorax. His oxygenation was an issue even after intubation and multiple changes by the optical goods drilling machine operator on the ventilator were attempted without any success in increasing his oxygen saturations. ABG reflected poor oxygenation as well. With his prolo nged hypoxemia optical goods drilling machine operator recommended terminal intubation to the family after extensive discussion with regards to tumor burden and new pneumothorax that did not completely reexpand with chest tube placement by general surgery early the a.m. of 11/03/2022. He was extubated later in the afternoon on 11/03/2022 after sedation and paralytics had worn off. Later the evening of 11/03/2022 the patient started to awaken and was able to interact with family appropriately and was alert and oriented x3. He unfortunately also developed A-fib with RVR. On 11/05/2022 further discussion with the optical goods drilling machine operator and the family were had with regards to ongoing medical care and a consultation to both hospice and radiation oncology were pursued as the patient wanted to hear what his options were. After extensive discussion with both consultations and repeat discussion with the optical goods drilling machine operator the patient elected to try further aggressive medical care including possible stent placement and further diagnoses and treatment with regards to his lung cancer if possible. Once his CODE STATUS was reverted back to DNR CCA no intubation after further discussion he was restarted on IV antibiotics and pulmonary toilet as well as steroids. We were unable to get his oxygen saturation any higher than 85% however and pulmonology felt this was due to shunting phenomenon with his right lung. Patient requested a CAT scan to his chest which showed small loculated pneumothorax in the right upper lobe and a small caliber chest tube at the lateral aspect of the right upper lobe with unchanging exam from previous. To achieve this, transfer to tertiary center was required and I called [facility] to discuss the case and he was excepted and able to be transferred there on 11/06/2022 early in the morning. W ith regards to his developed A-fib with RVR, he was initially started on metoprolol 25 mg p.o. twice daily by the optical goods drilling machine operator however his rate did not slow much beyond 130 for a very brief period of time. I was able to review the rhythm strip at that time and this was consistent with A-fib with RVR as we did have some concern that it could be MAT. I gave him amiodarone bolus of 300x1 dose and then started amiodarone drip. His heart rate did slow throughout the evening and by the time of transfer his heart rate was 126. At the time of discharge sputum cytology and pleural fluid cytology was pending. Discharge diagnoses: Acute hypoxic and hypercapnic respiratory failure Postobstructive pneumonia Right lung mass Acute exacerbation of COPD Hypertension GERD Weight / BMI Weight Weight: 69.2 kg Body Mass Index (BMI) 19.5 ABG / Lab / Microbiology Data 11/04/22 04:10 11/04/22 04:10 Laboratory: Laboratory Results - last 24 hr 11/02/22 15:25: Diff Path Review Reviewed 11/05/22 17:08: Fluid Source PLEURAL FLUID, Fluid Color YELLOW, Fluid Appearance CLEAR, Fluid WBC 1.856, Fluid RBC 323, Fluid Tot Cell Count 1.953, Fld Polynuclear WBCs # 0.803, Fld Polynuclear WBCs % 43.3, Fluid Mononuclear WBCs 1.053, Fld Mononuclear WBCs % 56.7, Fluid Neutrophils 90, Fluid Lymphocytes 4, Fluid Monocytes 6, Fl Pathologist Comment May follow, Fluid Glucose 121 H, Fluid Total Protein 2.1, Fluid LDH 436, Fluid Comment 2 SEE COMMENT 11/05/22 18:30: Troponin I High Sens 87 H 11/05/22 20:25: Troponin I High Sens 88 H 11/06/22 00:40: Troponin I High Sens 79 H Microbiology: Microbiology 11/04/22 01:20 Sputum, Induced/Lukens Gram Stain - Final 11/04/22 01:20 Sputum, Induced/Lukens Respiratory Culture - Preliminary Culture exhibits no growth. 10/31/22 07:50 Blood Culture (Wb) - Anticubital Left Blood Culture - Final No growth in 5 days. 10/31/22 08:05 Blood Culture (Wb) - Right Forearm Blood Culture - Final No growth in 5 days. 10/31/22 21:20 Sputum, Expectorated/Coughed Gram Stain - Final 10/31/22 21:20 Sputum, Expectorated/Coughed Respiratory Culture - Final Presumptive C albicans 11/02/22 15:08 Mucosa - Nose Respiratory Panel (PCR) - Final 10/31/22 14:45 Urine, Random Legionella Antigen - Final 10/31/22 14:45 Urine, Random Streptococcus pneumoniae Antigen (M - Final 10/31/22 06:25 Nasal Secretion SARS-CoV-2 & FLU Antigen (Rapid) - Final ABG: ABG 11/06/22 00:15 Specimen Type ART Sample Site L Radial pH 7.55 H Bicarbonate Actual 26.3 H Total CO2 27 Base Excess 4 H O2 Saturation 73 L ABG pCO2 30.3 L ABG pO2 33 L* Berhane Test Positive O2 Delivery Device Cannula Liter Flow 5.0 Crit Call To/Read Back Yes Blood Gas Notified Whom Carlee RN Radiography Diagnostic Testing: Radiology Impression Chest X-Ray 11/05/22 09:35 IMPRESSION: Slight decrease in size of the right apical pneumothorax with persistent pleural parenchymal changes at the right lung base. The endotracheal tube and nasogastric tube have been removed. Electronically Signed: John Martel MD at 10:59 EDT , Chest CT 11/05/22 12:53 IMPRESSION: Small loculated pneumothorax in the right upper lobe. A small caliber chest tube is seen along the lateral aspect of the right upper lobe. The remainder of examination is essentially unchanged. Electronically Signed: John Martel MD at 14:28 EDT , Meaningful Use Info Meaningful Use Diagnoses (Choose all that apply): None applicable Discharge Plan Admission Admit Date/Time: 10/31/22 10:03 Primary Reason for Your Visit: hypoxia, PNA, COPD Attending Provider: Kaylie Dial Primary Care Provider: Care Physician,No Primary Consulting Providers: Diego Pro; Oleksandr Yousif; Jayro Brown; Slim Cristina; Mona Courtney NP; Nate Tellez; Jez Kaufman Discharge Orders/Prescriptions Prescriptions: No Action pantoprazole 20 mg tablet,delayed release (DR/EC) 20 mg PO DAILY Patient Comments: Take 1 (one) tablet (20 mg total) by mouth daily. amlodipine 10 mg tablet 10 mg PO DAILY Patient Comments: Take 1 (one) tablet (10 mg total) by mouth daily. prednisone 20 mg tablet 20 mg PO DAILY Patient Comments: TAKE 2 TABLETS BY MOUTH DAILY Referrals / Follow Up: Care Physician,No Primary [Primary Care Provider] - Disposition Disposition (needs filled in before D/C Order can be placed): [facility]
[2022-11-08 00:06] LABS: Amylase Body Fluid 25 U/L (.)
[2022-11-08 12:31] LABS: Pathologist Review Reviewed
[2022-11-08 13:22] LABS: Pathologist Comment/Body Fluid Reviewed
[2022-11-09 15:07] LABS: pH, Body Fluid 11254 7.5 (Not Estab.)
== END 2022-11-06 02:10 | disposition short-term general hospital (02) | DRG 208 ==
LOC: ED 07:50 → MS3 11:33 → ICU 11-04 09:57
PROVIDERS: Hospitalist; Internal Medicine; Admitting Provider Internal Medicine; Emergency Provider Emergency Medicine; Visit Provider Internal Medicine
DX: J96.01 Acute respiratory failure with hypoxia (principal); J18.9 Pneumonia, unspecified organism; J44.0 Chronic obstructive pulmonary disease with (acute) lower respiratory infection; C34.01 Malignant neoplasm of right main bronchus; C77.1 Secondary and unspecified malignant neoplasm of intrathoracic lymph nodes; C78.01 Secondary malignant neoplasm of right lung; C78.02 Secondary malignant neoplasm of left lung; J44.1 Chronic obstructive pulmonary disease with (acute) exacerbation; J93.9 Pneumothorax, unspecified; I95.9 Hypotension, unspecified; J96.02 Acute respiratory failure with hypercapnia; I48.0 Paroxysmal atrial fibrillation; I10 Essential (primary) hypertension; K21.9 Gastro-esophageal reflux disease without esophagitis; E87.6 Hypokalemia; Z66 Do not resuscitate; Z87.891 Personal history of nicotine dependence; Z79.899 Other long term (current) drug therapy
CPT/HCPCS: 31500; 31720; 36415; 36600; 71045; 71046; 71250; 71260; 80048; 80053; 82150; 82550; 82803; 82945; 83615; 83735; 83880; 83986; 84100; 84145; 84157; 84478; 84484; 85025; 85379; 85610; 85730; 87040; 87070; 87075; 87205; 87428; 87449; 87633; 88108; 88305; 88312; 88313; 88325; 88341; 88342; 89050; 93005; 94002; 94003; 94640; 94660; 94668; 94762; 97802; 99252; 99285; 99406; J7040; J7050; Q9967; A4216; G0463; J0696; J1940

== ENCOUNTER → 2023-03-17 | Outpatient (CLI) | payer MEDICARE, OTHER, SELFPAY ==
[2023-03-17 14:07] VITALS: PULSE 85; PULSE 88; PULSE 93; PULSE 94; PULSE 95; PULSE 97; O2SAT 100; O2SAT 95; O2SAT 97; O2SAT 98; O2SAT 99
--- NOTE | 2023-03-18 08:26 | PCM.PSN.6M ---
PSN 6 Minute Walk Test 6 Minute Walk Test 6 Minute Walk Test: 6 Minute Walk Test PSN:6-Minute Walk Test Start: 03/17/23 14:06 Freq: Status: Active Protocol: [id number] Document 03/17/23 14:07 (Rec: 03/17/23 14:10 JR [id number]) 6 Minute Walk Test Date Performed 03/17/23 Time Performed 13:45 Height 6 ft 2 in Weight: 165 lb Weight in Pounds 165.[address]: Diego Pro Assistive device used: None Pre-test Oxygen Delivery Method Room Air Pulse Ox 95 Pulse Rate (60-100) 85 Dyspnea Nahum Scale (0-10) 0 Exertion Nahum Scale (6-20) 6 1st minute Oxygen Delivery Method Room Air Pulse Ox 100 Pulse Rate (60-100) 94 2nd minute Oxygen Delivery Method Room Air Pulse Ox 98 Pulse Rate (60-100) 93 3rd minute Oxygen Delivery Method Room Air Pulse Ox 98 Pulse Rate (60-100) 95 4th minute Oxygen Delivery Method Room Air Pulse Ox 97 Pulse Rate (60-100) 95 5th minute Oxygen Delivery Method Room Air Pulse Ox 98 Pulse Rate (60-100) 95 6th minute Oxygen Delivery Method Room Air Pulse Ox 98 Pulse Rate (60-100) 97 Dyspnea Nahum Scale (0-10) 0 Exertion Nahum Scale (6-20) 11 Post-test Oxygen Delivery Method Room Air Pulse Ox 99 Pulse Rate (60-100) 88 Full Laps Walked 21 Partial Lap, Number of Tiles Walked 15 Total Distance Walked (ft) 1254 Interpretation Interpretation: The patient ambulated 1254 feet over the course of 6 minutes beginning on room air without assistive devices. Pretesting oxygen saturation was noted to be 95% on room air. With ambulation, the ashley oxygen saturation was 97%. There was no significant exertional oxygen desaturation. Recommendations Recommendations: There is no indication for the use of supplemental oxygen at this time.
== END | disposition home or self-care (01) ==
LOC: PSN 13:37
PROVIDERS: Referring Provider Internal Medicine Critical Care Medicine; Visit Provider Internal Medicine Critical Care Medicine
DX: R06.09 Other forms of dyspnea (principal)
CPT/HCPCS: 94618

== ENCOUNTER → 2023-03-18 | Outpatient (CLI) | payer MEDICARE, OTHER, SELFPAY ==
--- NOTE | 2023-03-19 06:52 | PFT ---
INTRODUCTION: The patient is a 72-year-old male who presents for pulmonary function studies secondary to a diagnosis of dyspnea. Respiratory therapy reported good patient effort. Bronchodilators were used during testing. INTERPRETATION: Forced expiration spirometry demonstrates the presence of a mild large airways obstructive ventilatory defect. There was no significant response to aerosolized bronchodilators. Spirograms are of fair quality and plateau gradually indicating slow emptying of the lungs. Body plethysmography was performed and revealed lung volumes to be within normal limits. Diffusing capacity by single breath CO was reduced to 48% of predicted. IMPRESSION: Irreversible mild large airways obstructive ventilatory defect with preserved lung volumes and disproportionate reduction in diffusing capacity.
== END | disposition home or self-care (01) ==
PROVIDERS: Referring Provider Internal Medicine Critical Care Medicine; Visit Provider Internal Medicine Critical Care Medicine
DX: R06.09 Other forms of dyspnea (principal)
CPT/HCPCS: 94060; 94726; 94729

== ENCOUNTER → 2023-09-27 | Outpatient (CLI) | payer MEDICARE, OTHER, SELFPAY ==
[2023-10-02 04:06] LABS: Pancreatic Elastase, Fecal > 800 (>200)
== END | disposition home or self-care (01) ==
DX: R19.7 Diarrhea, unspecified (principal)
CPT/HCPCS: 82653; 87493